=== PATIENT | male | born 1935 | race Caucasian/White ===

== ENCOUNTER 2021-10-13 14:32 | Outpatient (CLI) | payer MEDICARE, SELFPAY ==
[2021-10-13 14:59] LABS: Basophils # 0.1 10^3/uL (0.0-0.1); Basophils % 0.8 %; Eosinophils # 0.3 10^3/uL (0.0-0.8); Hematocrit 34.8 % (42.0-52.0); Hemoglobin 10.7 g/dL (11.7-16.6); Lymphocytes # 1.8 10^3/uL (0.8-4.8); Lymphocytes % 19.5 %; Mean Corpuscular HGB Conc 30.7 g/dL (30.0-36.0); Mean Corpuscular Hemoglobin 30.7 pg (28.0-34.0); Mean Platelet Volume 10.3 fL (7.4-10.4); Monocytes # 1.3 10^3/uL (0.2-0.9); Monocytes % 13.9 %; Neutrophils # 5.63 10^3/uL (1.8-7.7); Neutrophils % 61.5 %; Nucleated Red Blood Cells % 0 %; Platelet Count 315 10^3/cmm (130-400); Red Blood Count 3.48 10^6/uL (4.1-5.3); White Blood Count 9.1 10^3/uL (4.0-10.0)
[2021-10-13 15:16] LABS: Alanine Aminotransferase < 5 U/L (0-41); Albumin Level 3.7 g/dL (3.5-5.2); Alkaline Phosphatase 60 IU/L (40-130); Anion Gap 12.3 (5-19); Aspartate Amino Transferase 12 U/L (0-40); Blood Urea Nitrogen 20 mg/dL (8-23); C Reactive Protein 5.8 mg/L (0.0-4.9); Carbon Dioxide 29 mmol/L (22-29); Chloride 103 mmol/L (98-107); Globulin 2.3 g/dL (1.3-4.6); Glucose 69 mg/dL (65-115); Osmolality Calculated 291 mOsm/kg (285-295); Potassium 4.3 mmol/L (3.5-5.1); Sodium 140 mmol/L (136-145); Total Bilirubin 0.3 mg/dL (0.15-1.2)
== END 2021-10-13 14:33 | disposition home or self-care (01) ==
LOC: LAB 14:35
PROVIDERS: Family Provider Internal Medicine Cardiovascular Disease; Visit Provider Internal Medicine Infectious Disease
DX: T81.40XA Infection following a procedure, unspecified, initial encounter (principal)
CPT/HCPCS: 80053; 85025; 86140

== ENCOUNTER 2021-10-21 13:51 | Outpatient (CLI) | payer MEDICARE, OTHER, SELFPAY ==
[2021-10-21 14:27] LABS: Basophils % 0.6 %; Eosinophils # 0.2 10^3/uL (0.0-0.8); Eosinophils % 2.8 %; Hematocrit 36.2 % (42.0-52.0); Hemoglobin 11.4 g/dL (11.7-16.6); Lymphocytes # 1.6 10^3/uL (0.8-4.8); Lymphocytes % 21.9 %; Mean Corpuscular HGB Conc 31.5 g/dL (30.0-36.0); Mean Corpuscular Hemoglobin 30.8 pg (28.0-34.0); Mean Corpuscular Volume 97.8 fl (80-94); Mean Platelet Volume 10.4 fL (7.4-10.4); Monocytes # 0.8 10^3/uL (0.2-0.9); Monocytes % 11.3 %; Neutrophils # 4.56 10^3/uL (1.8-7.7); Nucleated Red Blood Cells % 0 %; Platelet Count 229 10^3/cmm (130-400); Red Cell Distribution Width 14.9 % (12.1-15.1); White Blood Count 7.2 10^3/uL (4.0-10.0)
[2021-10-21 15:10] LABS: Alanine Aminotransferase < 5 U/L (0-41); Albumin Level 3.7 g/dL (3.5-5.2); Alkaline Phosphatase 60 IU/L (40-130); Anion Gap 13.3 (5-19); Aspartate Amino Transferase 13 U/L (0-40); Blood Urea Nitrogen 20 mg/dL (8-23); C Reactive Protein 3.7 mg/L (0.0-4.9); Calcium 9.2 mg/dL (8.5-10.5); Carbon Dioxide 27 mmol/L (22-29); Chloride 101 mmol/L (98-107); Globulin 2.8 g/dL (1.3-4.6); Glucose 136 mg/dL (65-115); Osmolality Calculated 289 mOsm/kg (285-295); Potassium 4.3 mmol/L (3.5-5.1); Sodium 137 mmol/L (136-145); Total Bilirubin 0.2 mg/dL (0.15-1.2); Total Protein 6.5 g/dL (6.6-8.7)
== END 2021-10-21 13:52 | disposition home or self-care (01) ==
LOC: LAB 13:53
PROVIDERS: Visit Provider Internal Medicine Infectious Disease
DX: T81.40XA Infection following a procedure, unspecified, initial encounter (principal)
CPT/HCPCS: 80053; 85025; 86140

== ENCOUNTER 2021-10-27 14:40 | Outpatient (CLI) | payer MEDICARE, OTHER, SELFPAY ==
[2021-10-27 15:11] LABS: Basophils % 0.5 %; Eosinophils # 0.3 10^3/uL (0.0-0.8); Eosinophils % 3.8 %; Hematocrit 37.6 % (42.0-52.0); Hemoglobin 11.6 g/dL (11.7-16.6); Lymphocytes # 1.6 10^3/uL (0.8-4.8); Lymphocytes % 21.6 %; Mean Corpuscular HGB Conc 30.9 g/dL (30.0-36.0); Mean Corpuscular Volume 100.5 fl (80-94); Mean Platelet Volume 10.3 fL (7.4-10.4); Monocytes # 0.9 10^3/uL (0.2-0.9); Monocytes % 11.5 %; Neutrophils # 4.68 10^3/uL (1.8-7.7); Neutrophils % 61.8 %; Nucleated Red Blood Cells % 0 %; Platelet Count 202 10^3/cmm (130-400); Red Blood Count 3.74 10^6/uL (4.1-5.3); Red Cell Distribution Width 14.4 % (12.1-15.1); White Blood Count 7.6 10^3/uL (4.0-10.0)
[2021-10-27 16:04] LABS: Alanine Aminotransferase < 5 U/L (0-41); Albumin Level 3.9 g/dL (3.5-5.2); Alkaline Phosphatase 58 IU/L (40-130); Aspartate Amino Transferase 26 U/L (0-40); Blood Urea Nitrogen 21 mg/dL (8-23); Calcium 9.1 mg/dL (8.5-10.5); Carbon Dioxide 29 mmol/L (22-29); Chloride 101 mmol/L (98-107); Globulin 2.3 g/dL (1.3-4.6); Glucose 150 mg/dL (65-115); Osmolality Calculated 292 mOsm/kg (285-295); Sodium 138 mmol/L (136-145); Total Bilirubin 0.3 mg/dL (0.15-1.2); Total Protein 6.2 g/dL (6.6-8.7)
== END 2021-10-27 14:41 | disposition home or self-care (01) ==
LOC: LAB 14:43
PROVIDERS: Visit Provider Internal Medicine Infectious Disease
DX: T81.40XA Infection following a procedure, unspecified, initial encounter (principal)
CPT/HCPCS: 80053; 85025; 86140

== ENCOUNTER 2021-11-03 13:33 | Outpatient (CLI) | payer MEDICARE, OTHER, SELFPAY ==
[2021-11-03 13:48] LABS: Basophils # 0.1 10^3/uL (0.0-0.1); Basophils % 0.6 %; Eosinophils # 0.2 10^3/uL (0.0-0.8); Eosinophils % 3.1 %; Hematocrit 37.9 % (42.0-52.0); Hemoglobin 11.7 g/dL (11.7-16.6); Lymphocytes # 1.5 10^3/uL (0.8-4.8); Lymphocytes % 18.7 %; Mean Corpuscular HGB Conc 30.9 g/dL (30.0-36.0); Mean Corpuscular Hemoglobin 30.5 pg (28.0-34.0); Mean Platelet Volume 10.2 fL (7.4-10.4); Monocytes # 0.9 10^3/uL (0.2-0.9); Monocytes % 11.2 %; Neutrophils # 5.17 10^3/uL (1.8-7.7); Neutrophils % 65.8 %; Nucleated Red Blood Cells % 0 %; Platelet Count 222 10^3/cmm (130-400); Red Blood Count 3.83 10^6/uL (4.1-5.3); Red Cell Distribution Width 13.9 % (12.1-15.1); White Blood Count 7.9 10^3/uL (4.0-10.0)
[2021-11-03 14:13] LABS: Alanine Aminotransferase < 5 U/L (0-41); Albumin Level 3.9 g/dL (3.5-5.2); Alkaline Phosphatase 60 IU/L (40-130); Anion Gap 12.9 (5-19); Aspartate Amino Transferase 15 U/L (0-40); Blood Urea Nitrogen 23 mg/dL (8-23); C Reactive Protein 5.8 mg/L (0.0-4.9); Calcium 9.2 mg/dL (8.5-10.5); Carbon Dioxide 28 mmol/L (22-29); Chloride 100 mmol/L (98-107); Globulin 2.7 g/dL (1.3-4.6); Glucose 186 mg/dL (65-115); Osmolality Calculated 293 mOsm/kg (285-295); Potassium 3.9 mmol/L (3.5-5.1); Sodium 137 mmol/L (136-145); Total Bilirubin 0.2 mg/dL (0.15-1.2); Total Protein 6.6 g/dL (6.6-8.7)
== END 2021-11-03 13:34 | disposition home or self-care (01) ==
PROVIDERS: Family Provider Internal Medicine Cardiovascular Disease; Visit Provider Internal Medicine Infectious Disease
DX: T81.49XA Infection following a procedure, other surgical site, initial encounter (principal); X58.XXXA Exposure to other specified factors, initial encounter
CPT/HCPCS: 36415; 80053; 85025; 86140

== ENCOUNTER 2022-01-05 13:39 | Inpatient (IN) | payer MEDICARE, SELFPAY ==
[2022-01-05] VITALS (33 sets, daily range): BP systolic 78–156; BP diastolic 51–82; PULSE 92–134; RESP 16–26; TEMP 38.6; O2SAT 94–98; BMI 24.5
--- NOTE | 2022-01-05 13:48 | CT_ITS ---
WS: [id number] CT ABDOMEN PELVIS TECHNIQUE: Noncontrast CT of the abdomen and pelvis with coronal and sagittal reformatted images. CLINICAL INFORMATION: Abdominal pain COMPARISON: None. DLP: 3097.[address] scans at [facility] use at least one of these dose optimization techniques: automated e xposure control; mA and/or kV adjustment per patient size (includes targeted exams where dose is matc hed to clinical indication); or iterative reconstruction. FINDINGS: Some images degraded by motion artifact. Lung bases are well aerated. Noncontrast liver is normal. Normal noncontrast spleen. Air-fluid level within the stomach. Normal GE junction. Air distended distal stomach. Air-fluid levels in normal stacy shayla duodenum and proximal jejunum. No evidence of high-grade small or large bowel obstruction. Fatty atrophy of the pancreas. Adrenal glands are normal. No hydronephrosis in either kidney. Increased att enuation upper pole RIGHT renal lesion measuring 15 mm likely hemorrhagic or proteinaceous cyst. This can be followed up with ultrasound. Atrophic LEFT kidney. Evidence of prior aortic endograft with excluded aneurysm sac measuring 4.2 x 4.2 CM. This measures 7 .2 cm craniocaudal. Endograft extends into the LEFT common iliac. Surgical occlusion of the RIGHT com mon iliac. Partially evaluated femorofemoral bypass graft. Tiny fat-containing umbilical hernia. Diffuse thickening of the rectum and distal sigmoid with rectos igmoid constipation and distention. Thoracolumbar scoliosis convex RIGHT in the lumbar spine. Spondylitic changes disc space narrowing daria mbar spine. CT/CT abdomen pelvis wo con [id number] IMPRESSION: 1. Air-fluid level in the stomach with gaseous distention of the stomach. Air- fluid levels in normal caliber duodenum and proximal jejunum. 2. No evidence of high-grade small or large bowel obstruction. 3. No hydronephrosis in either kidney. 4. Periaortic endograft with LEFT iliac extension. Excluded aneurysm measures 4.2 x 4.2 x 7.2 cm 5. Evidence of partially evaluated femorofemoral bypass graft. 6. Rectosigmoid constipation with distention. Diffuse distal sigmoid and recta l wall thickening with mild surrounding induration likely infectious/inflammato ry or reactive. 7. Increased attenuation upper pole RIGHT renal lesion measuring 15 mm likely hemorrhagic or proteinaceous cyst. This can be followed up with ultrasound
--- NOTE | 2022-01-05 13:49 | ECG_ITS ---
[facility] Test Date: 2022-01-05 Pat Name: Chano Millan Department: Room: Gender: Male Physician Relations Representative: : 1935 Requested By: Garry Walls Order Number: [id number] Marisela MD: Jero Ferro M.D. Measurements Intervals [place] Rate: 102 P: 44 [place]: 189 QRS: 5 QRSD: 158 T: 171 QT: 370 QTc: 482 Interpretive Statements SINUS TACHYCARDIA LEFT BUNDLE BRANCH BLOCK [120+ ms QRS DURATION, 80+ ms Q/S IN V1/V2, 85+ ms R IN I/aVL/V5/V6] No previous ECG available for comparison Electronically Signed On 01-05-2022 17:51:00 CDT by Jero Ferro M.D. [id number]
--- NOTE | 2022-01-05 13:49 | XRR_ITS ---
PROCEDURE INFORMATION: Exam: XR Chest Exam date and time: 01/05/2022 2:01 PM Age: 86 years old Clinical indication: Other: Hypoxia TECHNIQUE: Imaging protocol: XR of the chest. Views: 1 view. COMPARISON: No relevant prior studies available. FINDINGS: Lungs: The lungs are of clear No consolidation. Prominent vascular densities are seen in the right hilum which may represent pulmonary artery. Pleural spaces: Elevated left hemidiaphragm. No pleural effusion. No pneumothorax. Heart/Mediastinum: Unremarkable. No cardiomegaly. Bones/joints: Unremarkable. Other findings: Comparison to prior examination is recommended XR/XR chest 1V portable [id number] IMPRESSION: 1. No acute findings. 2. Low lung volumes 3. Elevated left hemidiaphragm 4. Prominent vascular structure right hilum
--- NOTE | 2022-01-05 14:04 | ED_ITS ---
HPI - General Adult General: Chief complaint: Altered Mental Status Stated complaint: FALL, GROIN INCISION OPEN HX STENT, FEVER Time Seen by Provider: 01/05/22 13:42 Source: EMS Mode of arrival: EMS (Air-Evac) Limitations: altered mental status History of Present Illness: 86-year-old male presents to the emergency room via air VAC. He was picked up at home by [facility] ambulance service they contacted [facility] and he was transferred here for presumed sepsis. He had fallen at home. Evidently had some complication with what looks to be a femorofemoral bypass we do not have records of it at this point patient is confused and unable to give us any history. He has a dehisced wound in the right inguinal region he also has a left inguinal wound. Family reported EMS there is a complication with a stent. There was some drainage from the wound human-ifas a large bulky bandage over looks serosanguineous. No active purulent drainage and I cannot express anything wound was not probed. Patient is febrile. He is unable to give any history at all he is confused and disoriented he is also mildly hypoxic requiring 5 L and only satting in the upper 80s he was switched to a mask shortly after arrival. Onset (ago): unknown Relieving factors: none Exacerbating factors: none Associated symptoms: Reports confusion, headache(s) and malaise; Deny chest pain, cough, fevers/chills or nausea Review of Systems General: Reports: ROS unobtainable due to mental status (Limited review of systems) Const: Reports: malaise Card: Denies: chest pain GI: Denies: nausea Neuro: Reports: headache(s) and confusion [facility] ED PFSH: Medical History (Updated 01/05/22 @ 17:34 by Garry John DO) CAD (coronary artery disease) Chronic back pain Dyslipidemia Elevated lactic acid level Elevated troponin Femoral-popliteal bypass graft occlusion GERD (gastroesophageal reflux disease) Glucose intolerance Hypertension New onset left bundle branch block (LBBB) Peripheral arterial disease with history of revascularization Respiratory failure Surgical site infection Surgical History History of abdominal aortic aneurysm (AAA) repair History of ankle surgery History of endovascular stent graft for abdominal aortic aneurysm (AAA) Stented coronary artery Family History Father CAD (coronary artery disease) [facility] at 65 Sister Cancer Social History Smoking and tobacco status: former smoker Alcohol intake: never Lives independently: Yes Household members: spouse Marital status: Physical Exam Const: EXAM LIMITATIONS: altered mental status GENERAL APPEARANCE: frail appearing ORIENTATION/CONSCIOUSNESS: Yes awake HENMT: COMMON NORMALS: normocephalic and atraumatic HEAD & SCALP: normocephalic and atraumatic FACE & SINUS: facial exam not normal Lymph: LYMPHATIC: no lymphadenopathy noted and no lymphedema noted Chest: OTHER: Bruising on the left anterior chest wall Resp: AUSCULTATION: rhonchi and wheezes Cardio: COMMON NORMALS: regular rhythm and No murmurs present (Cardio) RATE: tachycardic RHYTHM: regular rhythm GI: AUSCULTATION: Yes Hypoactive bowel sounds present PALPATION: Yes Tenderness to palpation present (GI) Details: LUQ and No Guarding due to palpation present (GI) Extremity: COMMON NORMALS: normal to inspection, capillary refill normal, no clubbing, cyanosis or edema, no calf tenderness and no pedal edema Skin: COMMON NORMALS: no rashes or lesions noted GENERAL SKIN EXAM: no rashes or lesions noted Procedures Intubation sedative: Etomidate paralytic: Succinylcholine Laryngoscope: Eden ET Tube Size: 8 ET Tube Uncuffed: No Tube Secured Depth (cm): 22 Tube Secured Location: teeth Tube Placement Confirmation: visualized tube passing through cords, equal breath sounds bilaterally, no breath sounds over epigastrium and confirmation by capnometry Patient Tolerated Procedure: well Intubation Complications: none Course Vital Signs: Vital signs: Vital Signs Temperature 101.4 F H 01/05/22 13:45 Pulse Rate 120 H 01/05/22 16:20 Respiratory Rate 16 01/05/22 16:20 Blood Pressure 146/80 01/05/22 16:20 Pulse Oximetry 96 01/05/22 16:20 MDM - General Adult Medical Decision Making Patient has increasing respiratory distress and work of breathing was decided to intubate the patient family gave permission to place patient on the ventilator. See procedure note. Oxygenation improved after being placed on the ventilator. Records received from [facility]. Patient had a endograft done via bilateral femoral artery cutdown in early September. We received a new EKG which had been done in early September which showed a normal sinus rhythm as opposed to the EKG don e here showing a left bundle branch block. Given this is a new bundle branch block it was decided to call a STEMI alert. Patient's initial troponin is 137 and CPK is 2789. Cardiology consult is necrosing the patient we did get some old records from [facility]. The bundle branch block is new [facility] decided to take patient to the [facility] given the elevated troponin bundle branch block and his presentation. Discussed with Dr. Crenshaw he will admit for sepsis to the ICU he has been empirically given Vanco Zosyn and Levaquin. Cultures done. Also discussed with the family. Medical Records I reviewed the patient's medical records. Lab Data I reviewed the patient's lab results. : 01/05/22 13:55 01/05/22 13:55 Radiology Impressions Abdomen/Pelvis CT 01/05/22 13:48 IMPRESSION: 1. Air-fluid level in the stomach with gaseous distention of the stomach. Air- fluid levels in normal caliber duodenum and proximal jejunum. 2. No evidence of high-grade small or large bowel obstruction. 3. No hydronephrosis in either kidney. 4. Periaortic endograft with LEFT iliac extension. Excluded aneurysm measures 4.2 x 4.2 x 7.2 cm 5. Evidence of partially evaluated femorofemoral bypass graft. 6. Rectosigmoid constipation with distention. Diffuse distal sigmoid and rectal wall thickening with mild surrounding induration likely infectious/inflammatory or reactive. 7. Increased attenuation upper pole RIGHT renal lesion measuring 15 mm likely hemorrhagic or proteinaceous cyst. This can be followed up with ultrasound Chest X-Ray 01/05/22 13:49 IMPRESSION: 1. No acute findings. 2. Low lung volumes 3. Elevated left hemidiaphragm 4. Prominent vascular structure right hilum Laboratory Results WBC 15.7 10^3/uL (4.0-10.0) H 01/05/22 13:55 RBC 4.28 10^6/uL (4.1-5.3) 01/05/22 13:55 Hgb 12.6 g/dL (11.7-16.6) 01/05/22 13:55 Hct 39.1 % (42.0-52.0) L 01/05/22 13:55 MCV 91.4 fl (80-94) 01/05/22 13:55 MCH 29.4 pg (28.0-34.0) 01/05/22 13:55 MCHC 32.2 g/dL (30.0-36.0) 01/05/22 13:55 RDW 13.2 % (12.1-15.1) 01/05/22 13:55 Plt Count 205 10^3/cmm (130-400) 01/05/22 13:55 MPV 10.5 fL (7.4-10.4) H 01/05/22 13:55 Neut % (Auto) 89.9 % 01/05/22 13:55 Lymph % (Auto) 2.0 % 01/05/22 13:55 Pender % (Auto) 6.9 % 01/05/22 13:55 Eos % (Auto) 0.0 % 01/05/22 13:55 Baso % (Auto) 0.2 % 01/05/22 13:55 Neut # (Auto) 14.12 10^3/uL (1.8-7.7) H 01/05/22 13:55 Lymph # (Auto) 0.3 10^3/uL (0.8-4.8) L 01/05/22 13:55 Pender # (Auto) 1.1 10^3/uL (0.2-0.9) H 01/05/22 13:55 Eos # (Auto) 0.0 10^3/uL (0.0-0.8) 01/05/22 13:55 Baso # (Auto) 0.0 10^3/uL (0.0-0.1) 01/05/22 13:55 Nucleated RBC % (auto) 0 % 01/05/22 13:55 Nucleated RBCs # 0.0 /100WBC 01/05/22 13:55 PT 16.20 SECONDS (12.1-14.9) H 01/05/22 13:55 INR 1.27 (0.8-1.2) H 01/05/22 13:55 APTT 35.0 SECONDS (23.9-36.7) 01/05/22 13:55 Specimen Type Arterial 01/05/22 14:25 Sample Site Brachial, left 01/05/22 14:25 ABG pH 7.51 (7.35-7.45) H 01/05/22 14:25 ABG pCO2 28.7 mmHg (35-45) L 01/05/22 14:25 ABG pO2 68.5 mmHg (80.0-100.0) L 01/05/22 14:25 ABG HCO3 23.0 mmol/L (22-26) 01/05/22 14:25 ABG O2 Saturation 97.5 01/05/22 14:25 ABG Base Excess 0.8 mmol/L (-2.0-2.0) 01/05/22 14:25 Maik Test Pos 01/05/22 14:25 A-a O2 Gradient 23.1 mmHg (5-10) H 01/05/22 14:25 Hematocrit 38.1 % (42-52) L 01/05/22 14:25 Hgb O2 Saturation 95.9 % (95-100) 01/05/22 14:25 Carboxyhemoglobin 0.9 %THgb (0.4-20.1) 01/05/22 14:25 Methemoglobin 0.7 % (0.4-1.5) 01/05/22 14:25 Total Hemoglobin 12.4 g/dL (14-18) L 01/05/22 14:25 Sodium 141.0 mmol/L (131-143) 01/05/22 14:25 Potassium 3.1 mmol/L (3.5-5.0) L 01/05/22 14:25 Glucose 239.0 mg/dL (70-115) H 01/05/22 14:25 Ionized Calcium 1.1 mmol/L (1.1-1.4) 01/05/22 14:25 O2 Delivery Device Nc 01/05/22 14:25 O2 Liters/Min 5.0 % 01/05/22 14:25 FiO2 40.0 % 01/05/22 14:25 Provider Education Specialist ID Bd 01/05/22 14:25 Sodium 140 mmol/L (136-145) 01/05/22 13:55 Potassium 3.4 mmol/L (3.5-5.1) L 01/05/22 13:55 Chloride 103 mmol/L (98-107) 01/05/22 13:55 Carbon Dioxide 24 mmol/L (22-29) 01/05/22 13:55 Anion Gap 16.4 (5-19) 01/05/22 13:55 BUN 34 mg/dL (8-23) H 01/05/22 13:55 Creatinine 1.4 mg/dL (0.7-1.2) H 01/05/22 13:55 GFR Calculation Not Reportable 01/05/22 13:55 Glucose 246 mg/dL (65-115) H 01/05/22 13:55 Calculated Osmolality 306 mOsm/kg (285-295) H 01/05/22 13:55 Lactic Acid 4.1 mmol/L (0.5-2.2) H* 01/05/22 13:55 Lactic Acid (Sepsis) 2.9 mmol/L (0.5-2.2) H 01/05/22 16:05 Calcium 8.9 mg/dL (8.5-10.5) 01/05/22 13:55 Magnesium 2.2 mg/dL (1.7-2.3) 01/05/22 13:55 Total Bilirubin 1.1 mg/dL (0.15-1.2) 01/05/22 13:55 AST 56 U/L (0-40) H 01/05/22 13:55 ALT 26 U/L (0-41) 01/05/22 13:55 Alkaline Phosphatase 62 IU/L (40-130) 01/05/22 13:55 Creatine Kinase 2789 U/L (39-308) H* 01/05/22 13:55 CK-MB (CK-2) 5.5 ng/mL (0-10.4) 01/05/22 13:55 CK-MB (CK-2) Rel Index % (0.0-5.3) 01/05/22 13:55 Troponin T Baseline 137 ng/L (0-15) H* 01/05/22 13:55 Troponin T 120 Minute 186.6 ng/L (0-15) H 01/05/22 16:05 Delta Troponin T 49.6 ABS# (0-10) H* 01/05/22 16:05 Total Protein 6.6 g/dL (6.6-8.7) 01/05/22 13:55 Albumin 3.4 g/dL (3.5-5.2) L 01/05/22 13:55 Globulin 3.2 g/dL (1.3-4.6) 01/05/22 13:55 Lipase 7 U/L (13-60) L 01/05/22 13:55 Urine Color Yellow (Yellow) 01/05/22 16:05 Urine Appearance Clear (CLEAR) 01/05/22 16:05 Urine pH 5 (5-7) 01/05/22 16:05 Ur Specific Portal 1.010 (1.005-1.030) 01/05/22 16:05 Urine Protein Trace (Negative) 01/05/22 16:05 Urine Glucose (UA) Norm (Normal) 01/05/22 16:05 Urine Ketones Negative (Negative) 01/05/22 16:05 Urine Blood 3+ (Negative) H 01/05/22 16:05 Urine Nitrate Negative (Negative) 01/05/22 16:05 Urine Bilirubin Neg (Negative) 01/05/22 16:05 Urine Urobilinogen Norm mg/dL (Negative) 01/05/22 16:05 Ur Leukocyte Esterase Negative (Negative) 01/05/22 16:05 Urine RBC 0-4 /hpf (0-2) H 01/05/22 16:05 Urine WBC 0-4 /hpf (0-5) H 01/05/22 16:05 Ur Squamous Epith Cells 0-4 /hpf (0-5) H 01/05/22 16:05 Amorphous Sediment 2+ /hpf 01/05/22 16:05 Urine Bacteria Trace /hpf (NONE) 01/05/22 16:05 Serum Ketones Negative (Negative) 01/05/22 13:55 Critical Care Time Critical Care Time: Critical Care Time: Yes Total Critical Care Time: 120 Attestation: The high probability of a clinically significant, sudden or life threatening deterioration of the patient's cardiovascular/respiratory system(s) required my full and direct attention, intervention and personal management. The critical care time is as shown. This time is in addition to time spent performing any rep orted procedures but includes the following: [x] Data and vital sign review and interpretation [x] Patient assessment, examination and intervention [x] Documentation [x] Medication orders and management Discharge Plan Discharge Patient Disposition: Admitted As Inpatient Admit Provider: Waldo Strong Clinical Impression: New onset left bundle branch block (LBBB), Elevated lactic acid level, Elevated troponin, NICOLETTE (acute kidney injury), Acute encephalopathy, Septic shock Condition: Stable Coding Level of Care Code ED [employer] for Chg Fwd Exam Comprehensive
[2022-01-05 14:23] LABS: Basophils % 0.2 %; Hematocrit 39.1 % (42.0-52.0); Hemoglobin 12.6 g/dL (11.7-16.6); Lymphocytes # 0.3 10^3/uL (0.8-4.8); Mean Corpuscular HGB Conc 32.2 g/dL (30.0-36.0); Mean Corpuscular Hemoglobin 29.4 pg (28.0-34.0); Mean Corpuscular Volume 91.4 fl (80-94); Mean Platelet Volume 10.5 fL (7.4-10.4); Monocytes # 1.1 10^3/uL (0.2-0.9); Monocytes % 6.9 %; Neutrophils # 14.12 10^3/uL (1.8-7.7); Neutrophils % 89.9 %; Nucleated Red Blood Cells % 0 %; Platelet Count 205 10^3/cmm (130-400); Red Blood Count 4.28 10^6/uL (4.1-5.3); Red Cell Distribution Width 13.2 % (12.1-15.1); White Blood Count 15.7 10^3/uL (4.0-10.0)
[2022-01-05] MEDS: sodium chloride 0.9% 1,000 ML 999 ML IV (14:32)
[2022-01-05] MEDS: piperacillin-tazobactam 3.375 GM in sodium chloride 0.9% (plus) 50 ML IV ×2 (14:32→21:59)
[2022-01-05] MEDS: ondansetron 2 mg/ML SDV 2 mL 4 MG IVP (14:33)
[2022-01-05 14:36] LABS: ABG PCO2 28.7 mmHg (35-45); ABG PH Result 7.51 (7.35-7.45); Alveolar-Arterial Oxygen Gradi 23.1 mmHg (5-10); Arterial Blood Gas Hematocrit 38.1 % (42-52); Base Excess ABG 0.8 mmol/L (-2.0-2.0); Blood Gas Allen Test Pos; Blood Gas Operator Identificat BD; Blood Gas Sample Site Brachial, left; Blood Gas Sample Type Arterial; Carboxyhemoglobin 0.9 %THgb (0.4-20.1); HGB O2 Sat 95.9 % (95-100); Ionized Calcium Level - ABG 1.1 mmol/L (1.1-1.4); Methemoglobin 0.7 % (0.4-1.5); Oxygen Device NC; Oxygen Saturation ABG 97.5; PO2 ABG 68.5 mmHg (80.0-100.0); Potassium Level - ABG 3.1 mmol/L (3.5-5.0); Total Hemoglobin 12.4 g/dL (14-18)
[2022-01-05] MEDS: LORazepam 2 mg/mL INJ 1 mL IVP (14:47)
[2022-01-05 14:52] LABS: Alanine Aminotransferase 26 U/L (0-41); Albumin Level 3.4 g/dL (3.5-5.2); Alkaline Phosphatase 62 IU/L (40-130); Anion Gap 16.4 (5-19); Aspartate Amino Transferase 56 U/L (0-40); Blood Urea Nitrogen 34 mg/dL (8-23); Calcium 8.9 mg/dL (8.5-10.5); Carbon Dioxide 24 mmol/L (22-29); Chloride 103 mmol/L (98-107); Globulin 3.2 g/dL (1.3-4.6); Glucose 246 mg/dL (65-115); Lipase 7 U/L (13-60); Magnesium 2.2 mg/dL (1.7-2.3); Osmolality Calculated 306 mOsm/kg (285-295); Potassium 3.4 mmol/L (3.5-5.1); Sodium 140 mmol/L (136-145); Total Bilirubin 1.1 mg/dL (0.15-1.2); Total Protein 6.6 g/dL (6.6-8.7)
[2022-01-05 14:54] LABS: Lactic Sepsis W/Reflex 4.1 mmol/L (0.5-2.2)
[2022-01-05 14:55] LABS: Ketone (Acetest) Serum Negative (Negative)
--- NOTE | 2022-01-05 15:00 | PC.PHAR ---
pt and pts states the pt takes care of his own medications-medications entered are meds that show on ext med history and what the pt states he takes-pt states he is still taking prozac 60mg qam last filled 10/28/21 30d/s-pt states still taking nitro-time er 2.5mg two tabs bid-[facility] pharmacy states filled 07/28/2021 30d/s and 11/25/21 30d/s states rx has refills- office [place] home ar states the pt hasnt been seen in the office since may 2021 -notes are made in the pharmacy comments
[2022-01-05 15:09] LABS: Creatine Phosphokinase 2789 U/L (39-308)
[2022-01-05] MEDS: succinylcholine 20 mg/mL SDV 10mL 90 MG IVP (15:11)
[2022-01-05 15:14] LABS: Troponin(5th) Baseline 137 ng/L (0-15)
[2022-01-05 15:28] LABS: INR 1.27 (0.8-1.2)
[2022-01-05] MEDS: vecuronium 10 mg SDV IVP (15:40)
--- NOTE | 2022-01-05 15:49 | ECG_ITS ---
[facility] Test Date: 2022-01-05 Pat Name: Chano Cuenca Department: Room: Gender: Male Utility Sales Representative: : 1935 Requested By: Garry Walls Order Number: [id number] Marisela MD: Jero Ferro M.D. Measurements Intervals [place] Rate: 135 P: -46 MO: 138 QRS: 11 QRSD: 155 T: 132 QT: 305 QTc: 457 Interpretive Statements SINUS TACHYCARDIA LEFT BUNDLE BRANCH BLOCK [120+ ms QRS DURATION, 80+ ms Q/S IN V1/V2, 85+ ms R IN I/aVL/V5/V6] Compared to ECG 01/05/2022 14:39:18 No significant changes Electronically Signed On 01-05-2022 17:57:29 CDT by Jero Ferro M.D. [id number]
[2022-01-05 16:01] LABS: CKMB 5.5 ng/mL (0-10.4)
[2022-01-05 16:03] LABS: Reflex Lactate Order REFLEX LACTIC ORDERD
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
[2022-01-05] MEDS: vancomycin 1,000 MG in sodium chloride 0.9% 250 ML 250 MG IV (16:17)
--- NOTE | 2022-01-05 16:20 | XACV_ITS ---
Exam Room: ICU10 Ht: 173 cm Wt: 71 kg BSA: 1.85 m2 Gender: Male : 1935 Exam Priority: Routine Procedure(s): Procedure Description: Diagnostic procedure Procedure Description: Coronary Angiography Diagnostic Cath Status: Emergency Diagnostic Findings * Patient was brought in with a new bundle branch block and a STEMI was called. Patient has coronary disease and is probably septic. Angiography was indicated because his troponin was 147 and he has a new left bundle branch block. Procedure was done from the right radial artery. The left main, circumflex and LAD are basically normal. There are several stents in the proximal and mid right coronary artery. There is some minor in-stent restenosis but no significant lesions. There is a 30 to 40% lesion in the distal right coronary artery. There is good flow in all 3 coronary vessels. No left ventriculogram was done due to acute renal insufficiency and sepsis. * The details of the procedure were provided to the patient's and son. All of their questions were answered. Conclusions 1. No coronary obstruction. Minor in-stent restenosis of the right coronary artery. Recommendations * Treat sepsis and other illness. Diagnostic RX Recommendation: none Anticoagulation: Heparin Pressures Phase:Rest AO : 137 / 113 ( 119 ) @ 5:56:00 PM Clinical Evaluation EBL: 5mL-10mL Procedural Details Admit Source: Emergency department. Pre-Procedure Time Out. Identified patient by full name and date of as verbalized by the patient/guarantor. Does the consent match the physician's order: N/A Emergent; Informed Consent not obtained due to time critical life threat. Accurate & Complete Informed Consent: N/A Emergent; Informed Consent not obtained due to time critical life threat. Inpatient/Outpatient History & Physical on Chart: Yes. If H&P is completed, is and addenduem needed: N/A; If yes, is the addendum complete: N/A. Visualize and Verify Site with Patient/Guarantor: N/A. Relevant Radiology Images available: N/A. Pre-op teaching completed and patient family verbalized understanding. The risks, benefits, and alternatives of sedation and/or procedure were discussed by physician. The patient family agrees to continue. Procedure started. [place] Clinical Fraility Score: 6: Moderately Frail. Vamp Presser Indications: Suspected CAD. Chest Pain Symptom Assessment: Asymptomatic. Cardiovascular Instability: Yes, if yes, Hemodynamic Instability. Correct patient, site and procedure confirmed by cath team. Current diagnosis: New LBBB. PERRLA. Strong, equal hand merchandising lead bilaterally. Lungs clear x 5 lobes. IV Site on Arrival: 18 gauge in the left wrist. IV Site on Arrival: 18 gauge in the right anticubital. Fentanyl gtt infusing at 50mcg/hr. Versed gtt infusing at 3mg/hr. Vancomycin IVPB at 250ml/hr. Pre Procedural Pulses: right radial was 3+. right groin was prepped with chloroprep then draped in the usual sterile fashion. right radial was prepped with chloroprep then draped in the usual sterile fashion. Patient arrived to crime lab technician on a ventilator and will be managed by respiratiory. Baseline sample Acquired. HR: 117 BPM. Physician notified. Physician arrived. Physician scrubbed in. Correct Patient: Yes; Correct Procedure: Yes; Correct Site: N/A Emergent; Informed Consent not obtained due to time critical life threat; Correct Patient Position: N/A Emergent; Informed Consent not obtained due to time critical life threat; Correct Supplies: N/A Emergent; Informed Consent not obtained due to time critical life threat; Dried Flammable Prep: N/A Emergent; Informed Consent not obtained due to time critical life threat; Blood Products Available: N/A Emergent; Informed Consent not obtained due to time critical life threat;. Lidocaine 1% infiltrated to the right radial. Arterial access obtained. A 5 japanese TIG catheter in over wire. Multiple views taken of left coronary artery. Nj catheter in placed from ED. Catheter redirected to the RCA. Multiple views taken of right coronary artery. Catheter out. Physician scrubbed out. Patient's family updated. A TR Band was successful obtaining hemostatsis at the Right Radial artery insertion site. Post Procedure: Pulses reassessed and unchanged. No VTE prophylaxis required. Medication's Wasted: Lidocaine 1% = 3 mL. Medication's Wasted: Heparin = 1000 u. Medication's Wasted: Nitro = 49.8 mg. Complications: none. Estimated blood loss: 5mL-10mL. Airway -continues to be maintained by ventilator support. Circulation: W/N/L, pulses unchanged. Nausea/Vomiting: No. Responsiveness - Responds to painful stimuli. Procedure completed. Patient transferred by bed to ICU. Vital chart was stopped. Access Site Site: Right Radial artery Sheath Size: 6 Fr Hemostasis Method: TR Band Hemostasis Success: Successful Procedure Medications Start: 4:53 PM Stop: 4:53 PM Medication: Nitrogylcerin Amount: 200 mcg Route: I.A. Start: 4:54 PM Stop: 4:54 PM Medication: Heparin Amount: 5000 units Route: I.V. I, the attending physician, have reviewed and verified all procedure medications. Yes, all medications given per verbal order Report Signatures Finalized by Dr. Waldo Strong MD on 01/05/2022 05:27 PM
[2022-01-05 16:26] LABS: Add Urine Culture? No; Add Urine Microscopic? YES; Amorphous Sediment Urine 2+ /hpf; Bacteria Urine TRACE /hpf; Bilirubin Urine Neg (Negative); Blood Urine 3+ (Negative); Glucose Urine UA Norm (Normal); Ketones Urine Negative (Negative); Leukocyte Esterase Urine Negative (Negative); Nitrate Urine Negative (Negative); Protein Urine Trace (Negative); RBC Urine 0-4 /hpf (0-2); Squamous Epithelial Cell Urine 0-4 /hpf (0-5); Urine Appearance Clear (CLEAR); Urine Color Yellow (Yellow); Urobilinogen Urine Norm (Negative); WBC Urine 0-4 /hpf (0-5); pH Urine 5 (5-7)
--- NOTE | 2022-01-05 16:35 | PC.NURSE ---
At 1511 pt was intubated with 8.[address] John. Pt was given 30 mg Etomidate IV and 90 mg Succinylcholine IV prior to intubation for sedation/paralysis. Pt became increasingly agitated and fidgety during course of stay in ER, trying to get out of bed, not answering questions appropriately. It was felt he was becoming more hypoxic and the decision was made to intubate by Dr. John. After intubation pt's Troponin resulted (critical) and the mine laborer was activated. Pt was taken to mine laborer at 1632
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
[2022-01-05 16:58] LABS: Lactic Acid level (Lactate) 2.9 mmol/L (0.5-2.2)
[2022-01-05 17:04] LABS: Troponin 5 2HR 186.6 ng/L (0-15); Troponin 5 2HR Delta 49.6 ABS# (0-10)
--- NOTE | 2022-01-05 17:47 | US_ITS ---
WS: [id number] Exam: US soft tissue/extremity [id number] Date/Time of Exam: 01/05/2022 6:36 PM Reason For Exam: R groin wound, assess for fluid collection The right inguinal region is targeted for ultrasound evaluation. A draining sinus extends to the skin surface within the right inguinal region.. A complex hypoechoic solid irregular lesion is noted just deep to the draining sinus and may represent a complex abscess o r phlegmon. This lesion appears to encase a prominent vessel in this region which may represent the c ommon femoral artery. No obvious drainable subcutaneous fluid collection is seen. US/US soft tissue/extremity [id number] IMPRESSION: 1. Approximate 3 x 2 cm subcutaneous hypoechoic irregular solid soft tissue mas s in the right groin region with well-defined draining sinus extending to the s kin surface. The mass partially encases a major vessel in this region probably the common femoral artery. Most likely diagnosis is complex abscess or phlegmon . Other possibilities would include hematoma or less likely soft tissue neoplas m. Atypical pseudoaneurysm might also be a consideration. 2. No subcutaneous drainable fluid collection was demonstrated.
[2022-01-05] MEDS: levofloxacin-dextrose 5 % 750 MG/150 ML PREMIX 100 MG IV (17:57)
[2022-01-05] MEDS: enoxaparin 40 mg/0.4 mL Syringe SUBCUT (17:57)
[2022-01-05] MEDS: pantoprazole DR 40 mg Tablet PO (17:57)
--- NOTE | 2022-01-05 18:07 | PC.NURSE ---
Arrived from cath lab radiological technologist, small amount of blood present to R wrist TR band site, intubated and sedated at this time
--- NOTE | 2022-01-05 18:19 | USCV_ITS ---
Chano Cuenca Age: 86 Gender: M : 1935 Exam Date: 01/05/2022 20:56 Ordering Phys: Ar Crenshaw MD Technologist: NIDHI [place] [facility] [place]: Possible CVA Risk Factors: Unknown Previous Vascular Surgery: Unknown Right Brachial BP: / Left Brachial BP: / Right Left Velocity (cm/s) Spectral Plaque Velocity (cm/s) Spectral Plaque Syst/Diast Broadening Syst/Diast Broadening 27.20/ 4.70 Prox CCA 36.50 / 7.80 35.70/ 6.20 Mid CCA 41.20 / 8.50 35.00/ 8.20 Distal CCA 39.60 / 10.10 47.10/ 10.70 Prox ICA 45.80 / 13.20 46.30/ 9.10 Mid ICA 97.10 / 25.60 72.20/ 12.40 Distal ICA 68.40 / 17.90 57.70 ECA 50.50 2.02 ICA/CCA 2.36 Antegrade Vertebral Antegrade 31.80/ 7.00 cm/s 72.20/ 19.40 cm/s Tri Subclavian Tri 43.50 93.70 FINDINGS Moderate heterogeneous plaques of the left bifurcation and proximal internal carotid artery Minimal plaques of the right bifurcation and internal carotid artery Antegrade flow in the vertebral arteries bilaterally. Normal Doppler velocities in the external carotid, vertebral and subclavian arteries bilaterally CONCLUSIONS Moderate heterogeneous plaques at the left bifurcation and proximal internal carotid artery, with Doppler features, suggesting less than 50% stenosis. Minimal plaques at the right bifurcation and internal carotid artery No significant stenosis in the vertebral, subclavian and internal carotid arteries bilaterally, based on the above findings No similar previous studies are available for comparison Dr Tori Franz MD [facility] (Electronically Signed) Final Date: 06 January 2022 09:23 S
[2022-01-05 18:52] LABS: D Dimer 5.23 ug/mIFEU (0-0.59)
[2022-01-05] MEDS: methylnaltrexone 12 /0.6 mL INJ 12 MG SUBCUT (18:52)
[2022-01-05 21:14] LABS: Adenovirus Not Detected (NOT DETECT); Chlamydia Pneumoniae Not Detected (NOT DETECT); Coronavirus 229E,HKU1,NL63,OC4 Not Detected (NOT DETECT); Human Metapneumovirus Not Detected (NOT DETECT); Human Rhinovirus/Enterovirus Not Detected (NOT DETECT); Influenza A Not Detected (NOT DETECT); Influenza A H1 Not Detected (NOT DETECT); Influenza A H1-2009 Not Detected (NOT DETECT); Influenza A H3 Not Detected (NOT DETECT); Influenza B Not Detected (NOT DETECT); Mycoplasma Pneumoniae Not Detected (NOT DETECT); Parainfluenza Virus Type 1 Not Detected (NOT DETECT); Parainfluenza Virus Type 2 Not Detected (NOT DETECT); Parainfluenza Virus Type 3 Not Detected (NOT DETECT); Parainfluenza Virus Type 4 Not Detected (NOT DETECT); Respiratory Syncytial Virus A Not Detected (NOT DETECT); Respiratory Syncytial Virus B Not Detected (NOT DETECT); SARS-COV-2 Not Detected (NOT DETECT)
[2022-01-05 22:02] LABS: Troponin 5 6HR 272.4 ng/L (0-15); Troponin 5 6HR Delta 135.4 ng/L (0-12)
[2022-01-05] MEDS: acetaminophen 325 mg Tablet 650 MG PO (22:28)
[2022-01-05] MEDS: sodium chloride 0.9% 1,000 ML 100 ML IV (22:34)
[2022-01-05] MEDS: sodium chloride 0.9% 500 ML 999 ML IV (22:34)
[2022-01-06] VITALS (58 sets, daily range): BP systolic 75–160; BP diastolic 43–136; PULSE 86–118; RESP 16–18; TEMP 36.6; O2SAT 80–100; BMI 24.5
[2022-01-06 03:52] LABS: Basophils # 0.1 10^3/uL (0.0-0.1); Basophils % 0.3 %; Eosinophils % 0.1 %; Hematocrit 43.7 % (42.0-52.0); Hemoglobin 13.8 g/dL (11.7-16.6); Lymphocytes % 5.7 %; Mean Corpuscular HGB Conc 31.6 g/dL (30.0-36.0); Mean Corpuscular Hemoglobin 28.9 pg (28.0-34.0); Mean Corpuscular Volume 91.4 fl (80-94); Mean Platelet Volume 10.8 fL (7.4-10.4); Monocytes # 3.4 10^3/uL (0.2-0.9); Monocytes % 18.5 %; Neutrophils # 13.66 10^3/uL (1.8-7.7); Neutrophils % 74.5 %; Nucleated Red Blood Cells % 0 %; Platelet Count 180 10^3/cmm (130-400); Red Blood Count 4.78 10^6/uL (4.1-5.3); Red Cell Distribution Width 13.7 % (12.1-15.1); White Blood Count 18.3 10^3/uL (4.0-10.0)
[2022-01-06 04:19] LABS: Alanine Aminotransferase 25 U/L (0-41); Albumin Level 2.3 g/dL (3.5-5.2); Alkaline Phosphatase 58 IU/L (40-130); Aspartate Amino Transferase 40 U/L (0-40); Blood Urea Nitrogen 33 mg/dL (8-23); Calcium 7.5 mg/dL (8.5-10.5); Carbon Dioxide 19 mmol/L (22-29); Chloride 108 mmol/L (98-107); Globulin 3.4 g/dL (1.3-4.6); Glucose 133 mg/dL (65-115); Magnesium 2.1 mg/dL (1.7-2.3); Osmolality Calculated 301 mOsm/kg (285-295); Sodium 141 mmol/L (136-145); Total Protein 5.7 g/dL (6.6-8.7)
[2022-01-06 04:21] LABS: Lactate (Lactic Acid level) 2.3 mmol/L (0.5-2.2)
[2022-01-06 04:26] LABS: Anion Gap 17.2 (5-19); Potassium 3.2 mmol/L (3.5-5.1)
[2022-01-06 04:28] LABS: Creatine Phosphokinase 1127 U/L (39-308)
--- NOTE | 2022-01-06 04:57 | XRR_ITS ---
PROCEDURE INFORMATION: Exam: XR Chest Exam date and time: 01/06/2022 5:07 AM Age: 86 years old Clinical indication: Cough and dyspnea; Additional info: Dyspnea/cough TECHNIQUE: Imaging protocol: XR of the chest. Views: 1 view. COMPARISON: CR XR chest 1V portable [id number] 01/05/2022 2:01 PM FINDINGS: Tubes, catheters and devices: The endotracheal tube is above the level of the elan. Central venous catheter via the right jugular approach with the tip projecting over the atrium. nasogastric tube extends below the diaphragm with the tip in the region of the fundus Lungs: Perihilar alveolar airspace consolidation as well as consolidation within both lung bases. Pleural spaces: Bilateral pleural effusions: Heart/Mediastinum: Cardiomegaly with prominent and indistinct central vasculature. Bones/joints: Unremarkable. XR/XR chest 1V portable [id number] IMPRESSION: Severe pulmonary edema.
[2022-01-06 05:29] LABS: Partial Thromboplastin Time 45.2 SECONDS (23.9-36.7)
[2022-01-06] MEDS: fluoxetine 20 mg Capsule 60 MG PO (05:32)
[2022-01-06] MEDS: piperacillin-tazobactam 3.375 GM in sodium chloride 0.9% (plus) 50 ML IV ×3 (05:32→22:05)
[2022-01-06] MEDS: lidocaine 1% 5 ML in potassium chloride premix 100 ML 50 ML IV (05:32)
--- NOTE | 2022-01-06 06:19 | USCV_ITS ---
Chano Cuenca Age: 86 Gender: M : 1935 Exam Date: 01/06/2022 13:01 Ordering Phys: Marlo Agosto MD Technologist: MANAV [place]am [place] [facility] [place]ication: NSTEMI. Patient is on ventilator in ICU-10. BP: 100 / 53 HR: 92 Rhythm: Sinus Technical Quality: Adequate MEASUREMENTS (Male / Female) Normal Values 2D ECHO LV Diastolic Diameter PLAX 3.1 cm 4.2 - 5.9 / 3.9 - 5.3 cm LV Systolic Diameter PLAX 2.2 cm IVS Diastolic Thickness 1.4 cm 0.6 - 1.0 / 0.6 - 0.9 cm IVS Systolic Thickness 2.1 cm LVPW Diastolic Thickness 1.3 cm 0.6 - 1.0 / 0.6 - 0.9 cm LVPW Systolic Thickness 1.5 cm LVOT Diameter 2.0 cm LV Ejection Fraction 2D Teich 65.4 % LV Ejection Fraction MOD 2C 61.6 % LV Ejection Fraction 2C AL 62.7 % LA Diameter 3.5 cm LA Width 3.4 cm LA Height 3.0 cm RA Width 3.5 cm RA Height 3.7 cm Aorta at Sinotubular Diameter 3.3 cm IVC Diameter 1.7 cm M-MODE Aortic Annulus Diameter 3.7 cm LA Ao Ratio MM 0.9 MV E Point Septal Separation 0.4 cm DOPPLER AV Peak Velocity 106.0 cm/s LVOT Peak Velocity 100.0 cm/s AV Area Cont Eq vti 2.2 cm squared AV Area Cont Eq pk 3.0 cm squared MV Peak Velocity 78.0 cm/s MV Area PHT 2.9 cm squared Mitral E to A Ratio 0.6 MV E' Velocity 23.5 cm/s Mitral E to MV E' Ratio 6.5 Mitral E to LV E' Lateral Ratio 6.7 Mitral E to LV E' Septal Ratio 6.3 TR Peak Velocity 302.3 cm/s TR Peak Gradient 36.5 mmHg TV Peak E Velocity 52.0 cm/s Right Atrial Pressure 10.0 mmHg Pulmonary Artery Systolic Pressu 46.5 mmHg PV Peak Velocity 93.0 cm/s FINDINGS Left Ventricle Normal left ventricular size, systolic function and wall thickness, with no regional wall motion abnormalities. Grade I/IV diastolic dysfunction (abnormal relaxation filling pattern), normal to mildly elevated filling pressures. Left ventricular ejection fraction is estimated at 55-60 %. Right Ventricle Normal right ventricular size and systolic function. Mild pulmonary hypertension, RVSP 46.5 mmHg. Right Atrium The right atrium is normal in size. Left Atrium The left atrium is normal in size. Mitral Valve Structurally normal mitral valve without significant stenosis or prolapse. There is no mitral regurgitation. Aortic Valve Structurally normal aortic valve without significant sclerosis or stenosis. There is no aortic regurgitation. Tricuspid Valve Structurally normal tricuspid valve. Moderate tricuspid valve regurgitation. Pulmonic Valve Pulmonic valve not well visualized. Pericardium Normal pericardium without effusion. Aorta Normal ascending aorta dimension. IVC The inferior vena cava pulmonary and hepatic veins appear normal. CONCLUSIONS Normal left ventricular size, systolic function and wall thickness, with no regional wall motion abnormalities. Grade I/IV diastolic dysfunction (abnormal relaxation filling pattern), normal to mildly elevated filling pressures. Left ventricular ejection fraction is estimated at 55-60 %. Normal right ventricular size and systolic function. Mild pulmonary hypertension, RVSP 46.[address] Waldo Strong MD (Electronically Signed) Final Date: 06 January 2022 15:12 S
[2022-01-06 06:22] LABS: ABG PCO2 39.9 mmHg (35-45); ABG PH Result 7.31 (7.35-7.45); Arterial Blood Gas Hematocrit 39.4 % (42-52); Base Excess ABG -5.9 mmol/L (-2.0-2.0); Blood Gas Allen Test Pos; Blood Gas Sample Site Radial, left; Blood Gas Sample Type Arterial; Blood Gas Tidal Volume 0.45; Oxygen Device VENT; PO2 ABG 63.8 mmHg (80.0-100.0)
[2022-01-06 06:50] LABS: Bacillus cereus group Not Detected (NOT DETECT); Bacillus subtillis group Not Detected (NOT DETECT); Corynebacterium Not Detected (NOT DETECT); Cutibacterium acnes (P.acnes) Not Detected (NOT DETECT); Enterococcus Not Detected (NOT DETECT); Enterococcus faecalis Not Detected (NOT DETECT); Enterococcus faecium Not Detected (NOT DETECT); Lactobacillus species Not Detected (NOT DETECT); Listeria Not Detected (NOT DETECT); Listeria monocytogenes Not Detected (NOT DETECT); Micrococcus Not Detected (NOT DETECT); Pan Candida Not Detected (NOT DETECT); Pan Gram-Negative Not Detected (NOT DETECT); Staphylococcus epidermidis Not Detected (NOT DETECT); Staphylococcus lugdunensis Not Detected (NOT DETECT); Staphylococcus species Detected (NOT DETECT); Streptococcus agalactiae Not Detected (NOT DETECT); Streptococcus anginosus group Not Detected (NOT DETECT); Streptococcus pneumoniae Not Detected (NOT DETECT); Streptococcus pyogenes Not Detected (NOT DETECT); Streptococcus species Not Detected (NOT DETECT); mecA Not Detected (NOT DETECT); mecC Not Detected (NOT DETECT)
--- NOTE | 2022-01-06 06:51 | PM.PN ---
Subjective Subjective: Patient is still intubated. He is on a norepinephrine drip. The dose is 12 mcg/min. He is also on fentanyl and midazolam drips. He apparently gets somewhat agitated if he wakes up. The medications are being titrated to keep his systolic blood pressure around 90 mmHg. Urine output is fair. A central line was placed last evening. His white blood cell count is up this morning to 18.3. His CPK is down to 1127. 6-hour troponin was 272. Vitals/I&O/Wt Last Vital Signs Temp 101.4 F H 01/05/22 13:45 Pulse 86 01/06/22 04:30 Resp 16 01/06/22 06:10 BP 87/63 01/06/22 04:30 Pulse Ox 95 01/06/22 06:10 01/05/22 01/05/22 01/06/22 14:59 22:59 06:59 Intake Total 3685.326 / 3685.326 1050.094 / 4735.420 Output Total 375 / 375 Balance 3685.326 / 3685.326 675.094 / 4360.420 Weight last 48 hrs Weight 157 lb Weight 157 lb Physical Exam Narrative: GENERAL: In general he is still intubated and sedated. HEENT: Exam within normal limits. NECK: Supple without jugular vein distention. The carotid upstroke is normal without bruits. BACK: Exam normal. LUNGS: Clear. HEART: Regular rate and rhythm. ABDOMEN: Benign without organomegaly or tenderness. EXTREMITIES: No edema. NEUROLOGIC: Examination not performed due to sedation and intubation. SKIN: Unremarkable. Urinary Catheter Management: Nj: Cath Placed During This Visit: yes Reason for Continuing Indwelling Catheter: Accurate Measurement of Urinary Output in Critically Ill Patients Urinary Catheter Date of Insertion: 01/05/22 Urinary Catheter Time of Insertion: 15:20 Data : 01/06/22 03:29 01/06/22 03:29 Micro: Microbiology 01/05/22 14:05 Blood Culture - Preliminary Blood 01/05/22 13:55 Blood Culture - Preliminary Blood A&P Assessment and plan (1) Elevated creatine kinase: Status: Acute (2) NICOLETTE (acute kidney injury): Status: Acute (3) Septic shock: Status: Acute (4) Acute encephalopathy: Status: Acute (5) Respiratory failure: Status: Acute (6) Glucose intolerance: Status: Acute (7) Elevated troponin: Status: Acute (8) Hypertension: Status: Acute (9) Dyslipidemia: Status: Acute (10) Stented coronary artery: Status: Acute (11) CAD (coronary artery disease): Status: Acute (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 Plan is continued medical treatment for the presumed diagnosis of sepsis. The troponin elevation is demand ischemia from his other underlying medical problems primarily the sepsis. Attestations Medical Necessity Statement*: Needs continued treatment in the ICU for above-mentioned medical problems. Coding Level of Care Code Acute Bookkeeper Assistant for Chg Fwd History Comprehensive Exam Comprehensive Medical Decision Making High Complexity Diagnoses Elevated creatine kinase R74.8 NICOLETTE (acute kidney injury) N17.9 Septic shock A41.9; R65.21 Acute encephalopathy G93.40 Respiratory failure J96.90 Glucose intolerance E74.39 Elevated troponin R77.8 Hypertension I10 Dyslipidemia E78.5 Stented coronary artery Z95.5 CAD (coronary artery disease) I25.10 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 History of abdominal aortic aneurysm (AAA) repair Z98.890 Peripheral arterial disease with history of revascularization I73.9; Z98.890 New onset left bundle branch block (LBBB) I44.7 Wound dehiscence T81.30XA
[2022-01-06] MEDS: pantoprazole DR 40 mg Tablet PO (08:57)
[2022-01-06] MEDS: clopidogrel 75 mg Tablet PO (08:57)
[2022-01-06] MEDS: gabapentin 300 mg Capsule PO (08:57)
--- NOTE | 2022-01-06 09:00 | CTR_ITS ---
PROCEDURE INFORMATION: Exam: CT Head Without Contrast Exam date and time: 01/06/2022 10:18 AM Age: 86 years old Clinical indication: Altered mental status/memory loss; Additional info: AMS, anisocoria TECHNIQUE: Imaging protocol: Computed tomography of the head without contrast. Radiation optimization: All CT scans at this facility use at least one of these dose optimization techniques: automated exposure control; mA and/or kV adjustment per patient size (includes targeted exams where dose is matched to clinical indication); or iterative reconstruction. COMPARISON: No relevant prior studies available. RADIATION DOSE METRICS: Total DLP (mGy-cm): 912.58 FINDINGS: Brain: Hypodensity is seen in the periventricular cerebral white matter. This change is nonspecific but is most likely secondary to chronic ischemia within microvascular distributions. No intra or extra-axial masses, lesions or collections. Chandler white matter distinction is maintained throughout the brain. No radiographic evidence of intracranial hemorrhage. Cerebral ventricles: Ventricles are enlarged on the basis of mild diffuse cerebral volume loss. Paranasal sinuses: Visualized sinuses are unremarkable. No fluid levels. Mastoid air cells: Visualized mastoid air cells are well aerated. Bones/joints: Unremarkable. No acute fracture. Soft tissues: Unremarkable. CT/CT head wo con* [id number] IMPRESSION: No radiographic evidence of acute intracranial pathology.
--- NOTE | 2022-01-06 09:10 | PC.NURSE ---
Dr. Crenshaw at bedside observed Levo at 16 mcg/min HCP to pu in Vaso, continue with current abx and v.o. for WTD dressing to R groin
--- NOTE | 2022-01-06 10:11 | PC.CHAP ---
Pastoral Care Encounter/Spiritual Assessment Type of Contact [] Declined aoc director intelligence officer visit [] Patient/Family/Request visit [] Outpatient visit [] Follow-up visit [] Physician referral [] Code/Alert [x] Routine visit [] Staff referral [] Actively dying [] Patient sleeping [] Family support [] [] Out of room [] Palliative care [] [] Receiving care in room [] Pre-surgical visit [] Trauma [] Long length of stay [x] ICU visit [x] Other: vent Relational/Emotional Strength [] Patient feels connected with others/family/visitors/staff [] Distress [] Loneliness/isolation [] Abandonment Spirituality of Patient [] Person of Padmini [] Attends Religious of their Padmini [] Believes in Prayer [] Reads Bible or Adventism materials [] There are Spiritual issues to be addressed Deputy Commonwealth'S Attorney Interventions [x] Prayer [] Active listening [] Non-anxious presence [] Spiritual/emotional support [] Crisis/trauma care [] Spiritual counseling [] Bereavement support [] Provided bereavement packet [] Provided Bible/devotional materials [] Provided toy/stuffed animal, coloring book to patient or family member [] Provided Communion [] Anointing/[place] [] Salvation [x] Completed spiritual assessment [] Other: Impact on Illness or Injury [] Angry [] Fearful [] Anxious [] Often cries [] Exhaustion [] Unable to work [] Unable to attend lutheran [] Unable to walk/stand [] Unable to read [] Unable to drive [] Unable to eat/drink [] Unable to sleep [] Unable to be with family [] Patient intubated [] Other: Summary Time spent with patient
--- NOTE | 2022-01-06 14:44 | PC.NURSE ---
Levo at max, Vaso 0.08, Dr. Michaels gave t.o. to increase max on levophed to 50 mcg/min
[2022-01-06 15:40] LABS: ABG PCO2 36.5 mmHg (35-45); ABG PH Result 7.32 (7.35-7.45); Alveolar-Arterial Oxygen Gradi 32.1 mmHg (5-10); Arterial Blood Gas Hematocrit 40.3 % (42-52); Base Excess ABG -6.9 mmol/L (-2.0-2.0); Blood Gas Allen Test Pos; Blood Gas Operator Identificat CAK; Blood Gas Sample Site Brachial, left; Blood Gas Sample Type Arterial; Blood Gas Tidal Volume 0.45; Carboxyhemoglobin 0.6 %THgb (0.4-20.1); HCO3 ABG 18.6 mmol/L (22-26); Ionized Calcium Level - ABG 1.1 mmol/L (1.1-1.4); Methemoglobin 0.3 % (0.4-1.5); Oxygen Device VENT; Oxygen Saturation ABG 92.7; PO2 ABG 62.1 mmHg (80.0-100.0); Potassium Level - ABG 3.5 mmol/L (3.5-5.0); Total Hemoglobin 13.2 g/dL (14-18)
[2022-01-06] MEDS: norepinephrine 8 MG in dextrose 5 % 500 ML 114.3 MG IV (16:42)
[2022-01-06] MEDS: vancomycin 750 MG in sodium chloride 0.9% 250 ML 250 MG IV (16:44)
[2022-01-06] MEDS: enoxaparin 40 mg/0.4 mL Syringe SUBCUT (16:52)
--- NOTE | 2022-01-06 17:23 | XRR_ITS ---
PROCEDURE INFORMATION: Exam: XR Abdomen Exam date and time: 01/06/2022 5:33 PM Age: 86 years old Clinical indication: Other: Abdominal ischemia possible; Additional info: Possible bowl ischemia TECHNIQUE: Imaging protocol: XR of the abdomen. Views: Frontal supine view of the abdomen. 1 View. COMPARISON: CT abdomen pelvis [facility] [id number] 01/05/2022 2:13 PM FINDINGS: Tubes, catheters and devices: There is a nasogastric tube in place with its tip in the stomach. Diaphragm: There is moderate elevation left hemidiaphragm. Gastrointestinal tract: Bowel gas pattern is grossly unremarkable. Intraperitoneal space: There are surgical clips in the right upper quadrant from cholecystectomy. Organs: No urinary tract calculi are demonstrated. Vasculature: Vascular graft is seen in the aorta extending into the left iliac artery as seen on the previous CT scan. There are multiple vascular coils to the right of midline more tear in the right common iliac on the CT scan. Bones/joints: There is moderate scoliosis concave towards the left. There is mildly displaced fracture of the lateral right 8th rib. XR/XR abdomen 1V* [id number] IMPRESSION: 1. Nasogastric tube tip is in the stomach. 2. Unremarkable bowel gas pattern. 3. Right 8th rib fracture.
--- NOTE | 2022-01-06 17:25 | PC.NURSE ---
Datamichael at bedside, gave v.o. for abd xray, lactic lab and 50 ml of albumin
--- NOTE | 2022-01-06 18:36 | PC.NURSE ---
intra abdominal pressure performed per Datar, it was 10, Datar notified no n.o.
[2022-01-06] MEDS: albumin 12.5 GM/50 ML VIAL IV (18:39)
[2022-01-06 18:58] LABS: Lactic Sepsis W/Reflex 4.8 mmol/L (0.5-2.2)
--- NOTE | 2022-01-06 19:59 | PM.ACPR ---
Acute Procedures Central Line Placement: Right IJ: Time out performed: Yes Patient placed on monitor/pulse ox: Yes MD prep: mask, gown and gloves Central line prep: Chlorhexidine scrub and sterile drapes applied Local anesthesia used: lidocaine 1% Ultrasound used for placement: Yes Central line lumen inserted: triple Post procedure: sutured in place, good blood return, all ports aspirated, flushed, capped and sterile dressing applied Post procedure x-ray: tip of catheter in good position and no pneumothorax seen Patient tolerated procedure: well and no complications
[2022-01-06 20:08] LABS: Reflex Lactate Order REFLEX LACTIC ORDERD
[2022-01-06] MEDS: norepinephrine 8 MG in dextrose 5 % 500 ML 91.44 MG IV (21:59)
[2022-01-06 22:28] LABS: Lactic Acid level (Lactate) 1.4 mmol/L (0.5-2.2)
--- NOTE | 2022-01-06 22:31 | PM.CONSULT ---
Providers/Reason For Consult Consulting Physician/Specialty*: Suhas Fonseca MD/Pulmonary Critical Care Reason for Consult*: Septic shock Requesting Physician: Ar Crenshaw Attending Physician: Ar Crenshaw History of Present Illness History of Present Illness Upon review of records from [facility] as well as history and physical and progress notes so far in this admission: Patient is Chano Cuenca is a 86 year old male with history of CAD, s/p 5 stents per in the past, PAD with known femoropopliteal bypass occlusion, AAA, s/p endovascular stent repair via bilateral femoral artery cutdown. Patient has CT angio abdomen pelvis with contrast at [facility] on 08/31/2021-reported interval occlusion of femorofemoral bypass, severe calcified stenosis of proximal right common iliac artery and moderate calcified stenosis of proximal left common iliac artery. Aneurysmal dilation of infrarenal abdominal aorta which measures 4.9 cm compared to 3.8 on 10/10/1999 2020. 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 On 09/09/2021 patient underwent ultrasound-guided bilateral femoral sticks with angiogram of aortobilateral iliac arteries, angiogram of femoral to femoral graft, bilateral femoral cutdowns, aortic unilateral iliac repair of abdominal aortic aneurysm with 2 grafts, left iliac extension, cutdown femoral-femoral graft with a combination of Suzan thrombectomy and open thrombectomy-there was a complication postprocedure with perforation of the right common iliac artery and patient lost 750 cc plus another 2 to 3 units intraperitoneal bleeding from the perforation. Findings of the procedure were the femorofemoral graft was clotted and the large fibrin plug on the left side that required open graftotomy and open thrombectomy. Patient has large infrarenal abdominal aortic aneurysm very tight calcified lesion at the origin of right common iliac artery. As per patient post to procedure patient bilateral femoral artery cutdown in September 2021 patient has wound dehiscence with infection in the right groin after procedure, as per he has undergone treatment for 6 weeks of antibiotics @ follows up at [facility]. Family notes he has been having recurrent falls recently, last week had a fall outside on some rocks, son states he got up and got back by himself. He reportedly had a fall the night prior to admission and was noted to be confused-incomprehensible speech. Brought to emergency room on 01/05/2022 - noted to be confused, restless, unable to provide history-noted febrile with hypoxia requiring 5 L oxygen with saturation in high 80s. Appeared to be in respiratory distress-intubated and placed on ventilator. Lab significant for leukocytosis, lactic acidosis 4.1, NICOLETTE, creatinine 1.4, CT abdomen pelvis showed gastric distention with air-fluid level and normal caliber duodenum and proximal jejunum with no evidence of high-grade small or large bowel obstruction.Aortic endograft with left iliac extension-excluded aneurysm measuring 4.2 x 4.2 x 7.2 cm partially evaluated femorofemoral bypass with surgical occlusion of right common iliac, atrophic left kidney. 15 mm renal lesion on right likely hemorrhagic or proteinaceous cyst. Distal rectal and sigmoid thickening with mild surrounding induration likely infectious or inflammatory or reactive. Rectosigmoid constipation and distention. Blood cultures were sent and patient was started on Zosyn, vancomycin, started on sepsis protocol with 30 cc/kg fluid resuscitation. Initial EKG showed new left bundle branch block compared to [facility] EKG-troponin elevated 137, CK elevated 2000 789-assessed by cardiology on patient underwent coronary angiography which did not reveal any significant coronary lesions. Minor in-stent restenosis of RCA noted. Meanwhile patient was requiring Levophed 30 MCG/hour and vasopressin. Pulmonary critical care consulted for shock Seen patient at bedside intubated, sedated with Versed 6 mg/hour and fentanyl 100 mg/hour on CMV with FiO2 50% Currently requiring Levophed 30 MCG/hour and vasopressin 0.03 Wound cultures and blood cultures grew staph-sensitivity pending Other labs and pertinent imaging reviewed Medications/Allergies Home Medications Medication Instructions Recorded Confirmed Last Taken Type cefdinir 300 mg capsule See Rx Instructions .ROUTE .COMPLEX 01/05/22 01/05/22 Unknown History clopidogrel 75 mg tablet 75 mg PO DAILY 01/05/22 01/05/22 Unknown History diclofenac sodium 1 % topical gel 2 g TOPICAL Q6H PRN 01/05/22 01/05/22 Unknown History ergocalciferol (vitamin D2) 1,250 50,000 unit PO Q7D 01/05/22 01/05/22 Unknown History mcg (50,000 unit) capsule (Vitamin D2) fluoxetine 20 mg capsule 60 mg PO QAM 01/05/22 01/05/22 Unknown History gabapentin 300 mg capsule 300 mg PO TID 01/05/22 01/05/22 Unknown History hydrochlorothiazide 25 mg tablet 25 mg PO DAILY 01/05/22 01/05/22 Unknown History hydromorphone 4 mg tablet 4 mg PO Q6H PRN 01/05/22 01/05/22 Unknown History lisinopril 20 mg tablet 20 mg PO DAILY 01/05/22 01/05/22 Unknown History metoprolol succinate 25 mg 25 mg PO BID 01/05/22 01/05/22 Unknown History tablet,extended release 24 hr naloxegol 12.5 mg tablet (Movantik) 12.5 mg PO DAILY 01/05/22 01/05/22 Unknown History nitroglycerin 2.5 mg 5 mg PO BID 01/05/22 01/05/22 Unknown History capsule,extended release (Nitro-Time) pantoprazole 40 mg tablet,delayed 40 mg PO DAILY 01/05/22 01/05/22 Unknown History release zolpidem 10 mg tablet 10 mg PO BEDTIME 01/05/22 01/05/22 Unknown History Allergies Allergy/AdvReac Type Severity Reaction Status Date / Time diphenhydramine Allergy Severe pt states Verified 01/05/22 14:29 [From Benadryl] makes him go crazy Current Medications Generic Name Dose Route Start Last Admin Trade Name Nichole PRN Reason Stop Dose Admin Acetaminophen 650 mg 01/05/22 17:47 01/05/22 22:28 Acetaminophen 325 Mg Tablet PO 650 mg Q6H PRN Administration Mild/Mod Pain Or Temp >/= 101 Clopidogrel Bisulfate 75 mg 01/06/22 09:00 01/06/22 08:57 Clopidogrel 75 Mg Tablet PO 75 mg DAILY DEANDRE Administration Enoxaparin Sodium 40 mg 01/05/22 17:47 01/06/22 16:52 Enoxaparin 40 Mg/0.4 Ml Syringe SUBCUT 40 mg Q24H DEANDRE Administration Fluoxetine HCl 60 mg 01/06/22 06:00 01/06/22 05:32 Fluoxetine 20 Mg Capsule PO 60 mg QAM DEANDRE Administration Gabapentin 300 mg 01/06/22 09:00 01/06/22 08:57 Gabapentin 300 Mg Capsule PO 300 mg DAILY DEANDRE Administration Midazolam HCl 100 mg/ Sodium 100 mls @ 0 mls/hr 01/05/22 15:00 01/06/22 19:00 Chloride IV 4 mg/hr .Q0M DEANDRE 4 mls/hr Titration Protocol Per Protocol Fentanyl 2,500 mcg/ Sodium 250 mls @ 0 mls/hr 01/05/22 15:00 01/06/22 19:00 Chloride IV Infused .Q0M DEANDRE Titration Protocol Per Protocol Piperacillin Sod/Tazobactam 50 mls @ 12.5 mls/hr 01/05/22 22:30 01/06/22 22:05 Sod 3.375 gm/ Sodium Chloride IV 12.5 mls/hr Q8H DEANDRE Administration Protocol Vancomycin HCl 750 mg/ Sodium 250 mls @ 250 mls/hr 01/06/22 17:00 01/06/22 16:44 Chloride IV 250 mls/hr Q24H DEANDRE Administration Norepinephrine Bitartrate 8 mg 508 mls @ 0 mls/hr 01/06/22 14:15 01/06/22 21:59 / Dextrose IV 24 mcg/min .Q0M DEANDRE 91.44 mls/hr Administration Protocol Per Protocol Vasopressin 40 unit/ Sodium 40 mls @ 0.03 mls/min 01/06/22 19:15 01/06/22 21:59 Chloride IV 0.03 mls/min CONT DEANDRE Administration Non-Formulary Medication 12.5 mg 01/06/22 09:00 01/06/22 08:57 Naloxegol [Movantik] PO Not Given DAILY DEANDRE Pantoprazole Sodium 40 mg 01/05/22 17:47 01/06/22 08:[address] 40 Mg Tablet PO 40 mg DAILY DEANDRE Administration PFSH Acute PFSH: Medical History CAD (coronary artery disease) Chronic back pain Dyslipidemia Elevated lactic acid level Elevated troponin Femoral-popliteal bypass graft occlusion GERD (gastroesophageal reflux disease) Glucose intolerance Hypertension Nephrolithiasis New onset left bundle branch block (LBBB) Peripheral arterial disease with history of revascularization Respiratory failure Surgical site infection Surgical History History of abdominal aortic aneurysm (AAA) repair History of ankle surgery History of endovascular stent graft for abdominal aortic aneurysm (AAA) History of ureter stent Hx of cholecystectomy Stented coronary artery Family History Father CAD (coronary artery disease) [place] at 65 Sister Cancer Social History Smoking and tobacco status: former smoker Alcohol intake: never Lives independently: Yes Household members: spouse Marital status: Vitals/I&O/Wt Last Vital Signs Temp 97.9 F 01/06/22 09:44 Pulse 103 H 01/06/22 16:30 Resp 17 01/06/22 19:29 BP 119/66 01/06/22 16:30 Pulse Ox 95 01/06/22 19:29 01/06/22 01/06/22 01/06/22 06:59 14:59 22:59 Intake Total 1050.094 / 4735.420 304 / 304 1147.400 / 1451.400 Output Total 375 / 375 100 / 100 Balance 675.094 / 4360.420 304 / 304 1047.400 / 1351.400 Weight last 48 hrs Weight 157 lb Weight 157 lb Physical Exam Narrative: PHYSICAL EXAM: General: lying in bed, sedated and intubated. 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 SKIN: no rash LDA: # CVC: Urinary Catheter Management: Nj: Cath Placed During This Visit: yes Reason for Continuing Indwelling Catheter: Accurate Measurement of Urinary Output in Critically Ill Patients Urinary Catheter Date of Insertion: 01/05/22 Urinary Catheter Time of Insertion: 15:20 Data : 01/07/22 05:51 01/07/22 02:40 Other Labs: Radiology Impressions Abdomen/Pelvis CT 01/05/22 13:48 IMPRESSION: 1. Air-fluid level in the stomach with gaseous distention of the stomach. Air-fluid levels in normal caliber duodenum and proximal jejunum. 2. No evidence of high-grade small or large bowel obstruction. 3. No hydronephrosis in either kidney. 4. Periaortic endograft with LEFT iliac extension. Excluded aneurysm measures 4.2 x 4.2 x 7.2 cm 5. Evidence of partially evaluated femorofemoral bypass graft. 6. Rectosigmoid constipation with distention. Diffuse distal sigmoid and rectal wall thickening with mild surrounding induration likely infectious/inflammatory or reactive. 7. Increased attenuation upper pole RIGHT renal lesion measuring 15 mm likely hemorrhagic or proteinaceous cyst. This can be followed up with ultrasound Soft Tissue Ultrasound 01/05/22 17:47 IMPRESSION: 1. Approximate 3 x 2 cm subcutaneous hypoechoic irregular solid soft tissue mass in the right groin region with well-defined draining sinus extending to the skin surface. The mass partially encases a major vessel in this region probably the common femoral artery. Most likely diagnosis is complex abscess or phlegmon. Other possibilities would include hematoma or less likely soft tissue neoplasm. Atypical pseudoaneurysm might also be a consideration. 2. No subcutaneous drainable fluid collection was demonstrated. Chest X-Ray 01/06/22 04:57 IMPRESSION: Severe pulmonary edema. Head CT 01/06/22 09:00 IMPRESSION: No radiographic evidence of acute intracranial pathology. Abdomen X-Ray 01/06/22 17:23 IMPRESSION: 1. Nasogastric tube tip is in the stomach. 2. Unremarkable bowel gas pattern. 3. Right 8th rib fracture. Laboratory Results WBC 5.6 10^3/uL (4.0-10.0) 01/07/22 02:40 RBC 3.95 10^6/uL (4.1-5.3) L 01/07/22 02:40 Hgb 11.5 g/dL (11.7-16.6) L 01/07/22 02:40 Hct 35.0 % (42.0-52.0) L 01/07/22 02:40 MCV 88.6 fl (80-94) 01/07/22 02:40 MCH 29.1 pg (28.0-34.0) 01/07/22 02:40 MCHC 32.9 g/dL (30.0-36.0) 01/07/22 02:40 RDW 13.9 % (12.1-15.1) 01/07/22 02:40 Plt Count 168 10^3/cmm (130-400) D 01/07/22 05:51 MPV 11.1 fL (7.4-10.4) H 01/07/22 02:40 Neut % (Auto) 74.5 % 01/06/22 03:29 Lymph % (Auto) Not Reportable 01/07/22 02:40 Cameron % (Auto) Not Reportable 01/07/22 02:40 Eos % (Auto) 0.1 % 01/06/22 03:29 Baso % (Auto) 0.3 % 01/06/22 03:29 Neut # (Auto) 13.66 10^3/uL (1.8-7.7) H 01/06/22 03:29 Lymph # (Auto) Not Reportable 01/07/22 02:40 Cameron # (Auto) Not Reportable 01/07/22 02:40 Eos # (Auto) 0.0 10^3/uL (0.0-0.8) 01/06/22 03:29 Baso # (Auto) 0.1 10^3/uL (0.0-0.1) 01/06/22 03:29 Nucleated RBC % (auto) 0 % 01/06/22 03:29 Total Counted 100 (0-100) 01/07/22 02:40 Atypical Lymphs % 0.0 % (0-5) 01/07/22 02:40 Absolute Neutrophils 4.6 10^3/cmm (1.4-6.5) 01/07/22 02:40 Segmented Neutrophils 71 % 01/07/22 02:40 Abs Segm Neuts (Man) 4.0 10/cmm (1.6-7.1) 01/07/22 02:40 Band Neutrophils 12.0 % 01/07/22 02:40 Abs Band Neuts (Man) 0.7 10^3/cmm (0.0-1.2) 01/07/22 02:40 Absolute Lymphocytes 0.6 10^3/cmm (1.2-3.4) L 01/07/22 02:40 Lymphocytes (Manual) 10 % 01/07/22 02:40 Monocytes (Manual) 6.0 % 01/07/22 02:40 Absolute Monocytes 0.3 10^3/cmm (0.1-0.6) 01/07/22 02:40 Eosinophils (Manual) 1 % 01/07/22 02:40 Absolute Eosinophils 0.0 10^3/cmm (0.0-0.7) 01/07/22 02:40 Basophils (Manual) 0.0 % 01/07/22 02:40 Absolute Basophils 0.0 10^3/cmm (0.0-0.2) 01/07/22 02:40 Nucleated RBCs # 0.0 /100WBC 01/06/22 03:29 Toxic Vacuolation 1+ H 01/07/22 02:40 Platelet Estimate Decreased (Normal) 01/07/22 02:40 PT 16.20 SECONDS (12.1-14.9) H 01/05/22 13:55 INR 1.27 (0.8-1.2) H 01/05/22 13:55 APTT 83.8 SECONDS (23.9-36.7) H D 01/07/22 10:25 D-Dimer 5.23 ug/mIFEU (0-0.59) H 01/05/22 13:55 Specimen Type Arterial 01/07/22 02:37 Sample Site Radial, left 01/07/22 02:37 ABG pH 7.37 (7.35-7.45) 01/07/22 02:37 ABG pCO2 30.2 mmHg (35-45) L 01/07/22 02:37 ABG pO2 54.7 mmHg (80.0-100.0) L 01/07/22 02:37 ABG HCO3 17.5 mmol/L (22-26) L 01/07/22 02:37 ABG O2 Saturation 90.8 01/07/22 02:37 ABG Base Excess -6.7 mmol/L (-2.0-2.0) L 01/07/22 02:37 Maik Test Pos 01/07/22 02:37 A-a O2 Gradient 43.4 mmHg (5-10) H 01/07/22 02:37 Hematocrit 36.8 % (42-52) L 01/07/22 02:37 Hgb O2 Saturation 89.7 % (95-100) L 01/07/22 02:37 Carboxyhemoglobin 0.7 %THgb (0.4-20.1) 01/07/22 02:37 Methemoglobin 0.5 % (0.4-1.5) 01/07/22 02:37 Total Hemoglobin 12.0 g/dL (14-18) L 01/07/22 02:37 Sodium 136.0 mmol/L (131-143) 01/07/22 02:37 Potassium 3.5 mmol/L (3.5-5.0) 01/07/22 02:37 Glucose 243.0 mg/dL (70-115) H 01/07/22 02:37 Ionized Calcium 1.0 mmol/L (1.1-1.4) L 01/07/22 02:37 O2 Delivery Device Vent 01/07/22 02:37 O2 Liters/Min 5.0 % 01/05/22 14:25 FiO2 60.0 % 01/07/22 02:37 Tidal Volume 0.45 01/07/22 02:37 PEEP 8.0 cmH20 01/07/22 02:37 Flight Paramedic ID Monro 01/07/22 02:37 Sodium 134 mmol/L (136-145) L 01/07/22 02:40 Potassium 3.5 mmol/L (3.5-5.1) 01/07/22 02:40 Chloride 102 mmol/L (98-107) 01/07/22 02:40 Carbon Dioxide 17 mmol/L (22-29) L 01/07/22 02:40 Anion Gap 18.5 (5-19) 01/07/22 02:40 BUN 32 mg/dL (8-23) H 01/07/22 02:40 Creatinine 1.6 mg/dL (0.7-1.2) H 01/07/22 02:40 GFR Calculation Not Reportable 01/07/22 02:40 Glucose 240 mg/dL (65-115) H 01/07/22 02:40 Calculated Osmolality 293 mOsm/kg (285-295) 01/07/22 02:40 Lactic Acid 4.8 mmol/L (0.5-2.2) H* 01/06/22 18:15 Lactic Acid (Sepsis) 1.4 mmol/L (0.5-2.2) 01/06/22 21:46 Lactate 2.2 mmol/L (0.5-2.2) 01/07/22 02:41 Calcium 6.9 mg/dL (8.5-10.5) L 01/07/22 02:40 Magnesium 1.9 mg/dL (1.7-2.3) 01/07/22 02:40 Total Bilirubin 0.8 mg/dL (0.15-1.2) 01/07/22 02:40 AST 19 U/L (0-40) 01/07/22 02:40 ALT 21 U/L (0-41) 01/07/22 02:40 Alkaline Phosphatase 60 IU/L (40-130) 01/07/22 02:40 Creatine Kinase 222 U/L (39-308) 01/07/22 02:41 CK-MB (CK-2) 5.5 ng/mL (0-10.4) 01/05/22 13:55 CK-MB (CK-2) Rel Index % (0.0-5.3) 01/05/22 13:55 Troponin T Baseline 137 ng/L (0-15) H* 01/05/22 13:55 Troponin T 120 Minute 186.6 ng/L (0-15) H 01/05/22 16:05 Delta Troponin T 49.6 ABS# (0-10) H* 01/05/22 16:05 Troponin T Hi Sens 6Hr 272.4 ng/L (0-15) H 01/05/22 20:56 Troponin T Hi Sens 6Hr Delta 135.4 ng/L (0-12) H* 01/05/22 20:56 Total Protein 5.3 g/dL (6.6-8.7) L 01/07/22 02:40 Albumin 2.2 g/dL (3.5-5.2) L 01/07/22 02:40 Globulin 3.1 g/dL (1.3-4.6) 01/07/22 02:40 Lipase 7 U/L (13-60) L 01/05/22 13:55 Urine Color Yellow (Yellow) 01/05/22 16:05 Urine Appearance Clear (CLEAR) 01/05/22 16:05 Urine pH 5 (5-7) 01/05/22 16:05 Ur Specific Outing 1.010 (1.005-1.030) 01/05/22 16:05 Urine Protein Trace (Negative) 01/05/22 16:05 Urine Glucose (UA) Norm (Normal) 01/05/22 16:05 Urine Ketones Negative (Negative) 01/05/22 16:05 Urine Blood 3+ (Negative) H 01/05/22 16:05 Urine Nitrate Negative (Negative) 01/05/22 16:05 Urine Bilirubin Neg (Negative) 01/05/22 16:05 Urine Urobilinogen Norm mg/dL (Negative) 01/05/22 16:05 Ur Leukocyte Esterase Negative (Negative) 01/05/22 16:05 Urine RBC 0-4 /hpf (0-2) H 01/05/22 16:05 Urine WBC 0-4 /hpf (0-5) H 01/05/22 16:05 Ur Squamous Epith Cells 0-4 /hpf (0-5) H 01/05/22 16:05 Amorphous Sediment 2+ /hpf 01/05/22 16:05 Urine Bacteria Trace /hpf (NONE) 01/05/22 16:05 Serum Ketones Negative (Negative) 01/05/22 13:55 Coronavirus 229E (PCR) Not detected (NOT DETECT) 01/05/22 19:20 SARS-CoV-2 (PCR) Not detected (NOT DETECT) 01/05/22 19:20 Micro: Microbiology 01/05/22 14:05 Blood Culture - Preliminary Blood Staphylococcus aureus 01/05/22 13:55 Blood Culture - Preliminary Blood Staphylococcus aureus 01/05/22 16:05 Gram Stain - Final Groin Wound Culture - Preliminary Staphylococcus aureus 01/05/22 18:00 Gram Stain - Final Sputum - Endotracheal Tube Aspirate Sputum Culture - Preliminary A&P Assessment and plan (1) Acute encephalopathy: Status: Acute (2) NICOLETTE (acute kidney injury): Status: Acute (3) Septic shock: Status: Acute (4) History of endovascular stent graft for abdominal aortic aneurysm (AAA): Status: Acute (5) History of abdominal aortic aneurysm (AAA) repair: Status: Acute (6) Peripheral arterial disease with history of revascularization: Status: Acute (7) New onset left bundle branch block (LBBB): Status: Acute (8) Respiratory failure: Status: Acute (9) Wound dehiscence: Status: Acute (10) Staphylococcus aureus bacteremia: Status: Acute Plan 86-year-old male with past medical history of CAD, s/p 5 stents per in the past, PAD with known femoropopliteal bypass occlusion, AAA, s/p endovascular stent repair via bilateral femoral artery cutdown On 09/09/2021-later complicated with wound Dehiscence in the right groin treated with 6 weeks antibiotics-presented to emergency room for confusion and respiratory failure-intubated and admitted to ICU-currently noted to be in septic shock secondary to staph bacteremia from right groin wound dehiscence. #BUILDING MAINTENANCE WORKER:Acute confusion-secondary to septic encephalopathy -Currently being treated with antibiotics for staph bacteremia -Currently on sedation with fentanyl and Versed 6 Mg -Recommended to taper down fentanyl and turn off Versed -We will do awakening trial #Pulm:On mechanical ventilator for hypoxic respiratory failure secondary to fluid overload -Intubated 01/05/2022:-Currently on CMV 450/16/50 %/8 saturating 95% -Chest x-ray suggestive of diffuse pulmonary edema-we will give Lasix 20 Mg -Continue to monitor oxygen saturation and taper down FiO2 #Cardiac: Septic shock and A. fib with RVR -Currently on amiodarone drip and heparin gtt. -Echocardiogram 01/06/2022: Normal LV size, systolic function, wall thickness and no regional wall motion abnormalities. Grade 1 diastolic dysfunction. LVEF estimated 55 to 60%. Normal RV size and systolic function with mild pulmonary hypertension RVSP 46. 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 -Currently abdominis soft with no distention-abdominal pressure 10 -Patient is on vasopressors and there is a concern for potential ischemic bowel injury-plan is to taper vasopressors as feasible -Rectal stool impaction-recommended enema -N.p.o. for now given patient is on high-dose pressors -GI prophylaxis PPI #Renal: NICOLETTE-prerenal from septic shock -Target MAP 60-65 -Monitor signs for fluid overload and BUN/creatinine/electrolytes -Albumin 2.2-given 1 dose albumin and see if intravascular volume will improve his perfusion and come off pressors -Once patient comes down on his pressors-we will give Lasix -No urgent indication for hemodialysis -Patient is mechanically ventilated for respiratory support in the event of fluid overload #Infection: cultures and blood cultures positive for staph -Identification pending -Patient currently covered with vancomycin and Zosyn -Patient had right groin wound dehiscence from recent femorofemoral graft procedure and was treated with outpatient antibiotics -Soft tissue ultrasound 01/05/2022 showed 3 x 2 subcutaneous hypoechoic irregular solid soft tissue mass in the right groin with well defining draining sinus extending to the skin surface-most likely complex abscess -Surgery consultation for Wound exploration and possible drainage-for source control Overall patient is in septic shock requiring 2 pressors with staph positive blood cultures and wound cultures-continue ventilatory support-plan is to taper down sedation and do awakening trial followed by breathing trial while monitoring for response to current antibiotics until final identification is pending. ICU CHECKLIST: Problem list updated Verbal orders reviewed and signed Analgesia: Fentanyl Glycemic Control: Low-dose insulin scale coverage Nutrition: N.p.o. for now Restraint Renewal (within 24 hrs): Yes Ulcer Prophylaxis: PPI Chemical Thromboprophylaxis: Prophylaxis: Heparin Mechanical Thromboprophylaxis: SCD Need for Central line: Yes for pressors Need for Nj catheter: Yes for UOP monitoring Code: Full Prognosis: Guarded Family: Updated Consult Attestations Medical Necessity Statement: -intubated and admitted to ICU-currently noted to be in septic shock secondary to staph bacteremia from right groin wound dehiscence Being treated with antibiotics-needs close monitoring Critical Care Time: Critical Care Time (No Overlap): 60 min This patient has a high probability of sudden, clinically significant deterioration, which requires the highest level of physician preparedness to intervene urgently. I managed/supervised life or organ supporting interventions that required frequent physician assessment. I devoted my full attention in the ICU to the direct care of this patient for the period of time indicated above. Time I spent with family or surrogate(s) is included only if the patient was incapable of providing necessary information or participating in decision making. Time devoted to teaching and to any procedures I billed separately is not included. Services Provided: Telemetry review Mechanical Ventilation Hemodynamic interpretation, assessment and management Review and interpretation of CXR Review and interpretation of lab values Review and interpretation of microbiologic data and culture results Review of medications and administration Review and interpretation of Nutrition requirements and management Discussion of management with other consultants and services Clinical update to family members Critical Care Time (min): 60 Coding Level of Care Code New Pt Acute Strawhat Sizer for Chg Fwd Patient Type New History Comprehensive Exam Comprehensive Medical Decision Making High Complexity Diagnoses Acute encephalopathy G93.40 NICOLETTE (acute kidney injury) N17.9 Septic shock A41.9; R65.21 History of endovascular stent graft for abdominal aortic aneurysm (AAA) Z95.828 History of abdominal aortic aneurysm (AAA) repair Z98.890 Peripheral arterial disease with history of revascularization I73.9; Z98.890 New onset left bundle branch block (LBBB) I44.7 Respiratory failure J96.90 Wound dehiscence T81.30XA Staphylococcus aureus bacteremia R78.81; B95.61 Time Spent (min) 60
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
[2022-01-07] VITALS (103 sets, daily range): BP systolic 75–139; BP diastolic 45–82; PULSE 70–178; RESP 15–18; TEMP 36.8–37.2; O2SAT 77–100
[2022-01-07] MEDS: amiodarone 50 mg/mL SDV 3 mL 150 MG IVP (02:30)
--- NOTE | 2022-01-07 02:38 | ECG_ITS ---
[facility] Test Date: 2022-01-07 Pat Name: Chano Cuenca Department: Room: ICU10 Gender: Male King Maker: : [id number] Requested By: Marlo Agosto Order Number: [id number] Marisela MD: Waldo Strong M.D. Measurements Intervals [place] Rate: 180 P: [place]: QRS: -38 QRSD: 135 T: 141 QT: 264 QTc: 457 Interpretive Statements ATRIAL FIBRILLATION WITH RAPID VENTRICULAR RESPONSE LEFT AXIS DEVIATION [QRS AXIS < -30] LEFT BUNDLE BRANCH BLOCK [120+ ms QRS DURATION, 80+ ms Q/S IN V1/V2, 85+ ms R IN I/aVL/V5/V6] CRITICAL TEST RESULT INTERPRETATION BASED ON A DEFAULT AGE OF 40 YEARS Compared to ECG 01/05/2022 15:20:04 Left-axis deviation now present Sinus tachycardia no longer present Electronically Signed On 01-07-2022 15:18:47 CDT by Waldo Strong M.D. [id number]
[2022-01-07 02:47] LABS: Red Blood Count 3.95 10^6/uL (4.1-5.3); White Blood Count 5.6 10^3/uL (4.0-10.0)
[2022-01-07 02:48] LABS: Hemoglobin 11.5 g/dL (11.7-16.6); Mean Corpuscular HGB Conc 32.9 g/dL (30.0-36.0); Mean Corpuscular Hemoglobin 29.1 pg (28.0-34.0); Mean Corpuscular Volume 88.6 fl (80-94); Mean Platelet Volume 11.1 fL (7.4-10.4); Platelet Count 129 10^3/cmm (130-400); Red Cell Distribution Width 13.9 % (12.1-15.1)
[2022-01-07 02:51] LABS: ABG PCO2 30.2 mmHg (35-45); ABG PH Result 7.37 (7.35-7.45); Alveolar-Arterial Oxygen Gradi 43.4 mmHg (5-10); Arterial Blood Gas Hematocrit 36.8 % (42-52); Base Excess ABG -6.7 mmol/L (-2.0-2.0); Blood Gas Allen Test Pos; Blood Gas Operator Identificat MONRO; Blood Gas Sample Site Radial, left; Blood Gas Sample Type Arterial; Blood Gas Tidal Volume 0.45; Carboxyhemoglobin 0.7 %THgb (0.4-20.1); HCO3 ABG 17.5 mmol/L (22-26); HGB O2 Sat 89.7 % (95-100); Methemoglobin 0.5 % (0.4-1.5); Oxygen Device VENT; Oxygen Saturation ABG 90.8; PO2 ABG 54.7 mmHg (80.0-100.0); Potassium Level - ABG 3.5 mmol/L (3.5-5.0)
[2022-01-07 03:03] LABS: Lactate (Lactic Acid level) 2.2 mmol/L (0.5-2.2)
[2022-01-07 03:04] LABS: Alanine Aminotransferase 21 U/L (0-41); Albumin Level 2.2 g/dL (3.5-5.2); Alkaline Phosphatase 60 IU/L (40-130); Anion Gap 18.5 (5-19); Aspartate Amino Transferase 19 U/L (0-40); Blood Urea Nitrogen 32 mg/dL (8-23); Calcium 6.9 mg/dL (8.5-10.5); Carbon Dioxide 17 mmol/L (22-29); Chloride 102 mmol/L (98-107); Globulin 3.1 g/dL (1.3-4.6); Glucose 240 mg/dL (65-115); Magnesium 1.9 mg/dL (1.7-2.3); Osmolality Calculated 293 mOsm/kg (285-295); Potassium 3.5 mmol/L (3.5-5.1); Sodium 134 mmol/L (136-145); Total Bilirubin 0.8 mg/dL (0.15-1.2); Total Protein 5.3 g/dL (6.6-8.7)
[2022-01-07 03:08] LABS: Total Cells Counted 100 (0-100)
[2022-01-07 03:09] LABS: Absolute Neutrophil 4.6 10^3/cmm (1.4-6.5); Band Neutrophils Absolute 0.7 10^3/cmm (0.0-1.2); Eosinophils 1 %; Lymphocytes 10 %; Lymphocytes Absolute 0.6 10^3/cmm (1.2-3.4); Monocytes Absolute 0.3 10^3/cmm (0.1-0.6); Platelet Estimate Decreased (Normal); Segmented Neutrophils 71 %; Toxic Vacuolation 1+
[2022-01-07 03:12] LABS: Creatine Phosphokinase 222 U/L (39-308)
[2022-01-07] MEDS: lidocaine drip 2,000 MG/500 ML PREMIX 30 MG IV (03:21)
[2022-01-07] MEDS: calcium chloride 10% Syr 10 mL 1 GM IVP (03:22)
[2022-01-07] MEDS: adenosine 3 mg/mL SDV 2mL 6 MG IVP (03:33)
[2022-01-07] MEDS: heparin drip 25,000 UNIT/500 ML PREMIX 20 UNIT IV (04:34)
--- NOTE | 2022-01-07 05:31 | P.PNCC_ITS ---
Critical Care Event Note 86-year-old male with past medical history of ?CAD, status post 5 stents (per his ) in the past, PAD with known femoropopliteal bypass occlusion, AAA, status post endovascular stent repair via bilateral femoral artery cutdown, with wound dehiscence, infection in the right groin after procedure, currently being managed for sepsis, NSTEMI type II. Overnight patient went into irregular wide-complex tachycardia with heart rate into 1160- 170s:During these episodes patient blood pressure had significant drop, in spite of a he being on Levophed as well as vasopressin.Patient continued to have pulse during the entire event.Failed synchronized cardioversion x2 asw well as one Defibrillation, Patient was started on amiodarone drip after amiodarone bolus as well as lidocaine drip. Patient also received adenosine 6 mg x 1 dose. Current EKG shows A. fib with RVR.Patient had underlying LBBB on admission was assumed to be of new onset which cleared the path for CAG, no intervention needed.Later everything has been assumed to be on sepsis. Patient was also started on heparin drip. The high probability of a clinically significant, sudden or life threatening deterioration of the patient's [] system(s) required my full and direct attention, intervention and personal management. The critical care time is as shown. This time is in addition to time spent performing any reported procedures but includes the following: [x] Data and vital sign review and interpretation [x] Patient assessment, examination and intervention [x] Documentation [x] Medication orders and management Critical Care Time Code activated: No Critical Care Time (min): 60 Coding Level of Care Code Acute Medical Support Specialist for [facility]
[2022-01-07 06:30] LABS: Platelet Count 168 10^3/cmm (130-400)
[2022-01-07] MEDS: fluoxetine 20 mg Capsule 60 MG PO (07:34)
[2022-01-07] MEDS: piperacillin-tazobactam 3.375 GM in sodium chloride 0.9% (plus) 50 ML IV ×3 (07:34→22:03)
[2022-01-07] MEDS: norepinephrine 8 MG in dextrose 5 % 500 ML 45.72 MG IV (07:42)
--- NOTE | 2022-01-07 08:03 | PC.NURSE ---
Patient in V-tach 0225. Verbal orders for medications given per Dr. Agosto. See mar for details. Patient was shocked twice at 200 joules and defibrillated once per doctors orders. Patient remained in V-tach until approx 0400. 0400 patient converted to NSR. Patients family at bedside. Bedside report given to nurse Mary Alice RN.
--- NOTE | 2022-01-07 09:31 | PC.NURSE ---
Fentanyl running at 75 mcg/hr at 0700. Decreased to 50 mcg/hr per Dr Datar's request. Unable to titrate in SEP d/t bag volume empty. Approximately 40-50 mls remaining in current bag.
[2022-01-07 09:33] LABS: ABG PCO2 36.7 mmHg (35-45); ABG PH Result 7.41 (7.35-7.45); Alveolar-Arterial Oxygen Gradi 40.9 mmHg (5-10); Base Excess ABG -1.1 mmol/L (-2.0-2.0); Blood Gas Allen Test Pos; Blood Gas Operator Identificat BD; Blood Gas Sample Site Brachial, left; Blood Gas Sample Type Arterial; Blood Gas Tidal Volume 0.45; Carboxyhemoglobin 0.9 %THgb (0.4-20.1); HCO3 ABG 23.3 mmol/L (22-26); HGB O2 Sat 93.2 % (95-100); Ionized Calcium Level - ABG 1.1 mmol/L (1.1-1.4); Methemoglobin 0.4 % (0.4-1.5); Oxygen Device VENT; Oxygen Saturation ABG 94.4; Potassium Level - ABG 3.2 mmol/L (3.5-5.0); Total Hemoglobin 12.4 g/dL (14-18)
[2022-01-07] MEDS: clopidogrel 75 mg Tablet PO (10:10)
[2022-01-07] MEDS: albumin 12.5 GM/50 ML VIAL IV ×2 (10:10→17:47)
[2022-01-07] MEDS: gabapentin 300 mg Capsule PO (10:10)
[2022-01-07] MEDS: pantoprazole 40 mg SDV IVP (10:33)
[2022-01-07] MEDS: lidocaine drip 2,000 MG/500 ML PREMIX 60 MG IV (11:19)
[2022-01-07 11:20] LABS: Partial Thromboplastin Time 83.8 SECONDS (23.9-36.7)
--- NOTE | 2022-01-07 12:55 | PC.NURSE ---
Datamichael ordered Vasopressin to be held at this time to see how pt tolerates.
--- NOTE | 2022-01-07 14:00 | PC.NURSE ---
Dr Strong requested Lidocaine be held for one hour to monitor results.
--- NOTE | 2022-01-07 14:08 | PM.PN ---
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 His cultures are growing a Staphylococcus aureus species so this is most likely the source of his sepsis. The same organism is in the blood and the wound. Patient was on both norepinephrine and vasopressin overnight. Last evening he apparently had a wide-complex irregular tachycardia that was assumed to be atrial fibrillation with a rapid rate or ventricular tachycardia. It is difficult to tell which was assumed. When he presented he was in a left bundle branch block. The patient did undergo cardioversion 3 times which did not convert him from the rhythm. He was then placed on heparin, amiodarone and lidocaine all of which he is still on. He remains on norepinephrine, midazolam and fentanyl as well. He is still intubated. The vasopressin was stopped earlier and the norepinephrine has been weaned downward. I have looked at the strips and indeed he did have atrial fibrillation intermittently overnight. Currently his heart rate is about 75 with a narrow complex rhythm and sinus as a baseline rhythm. Vitals/I&O/Wt Last Vital Signs Temp 98.7 F 01/07/22 10:15 Pulse 72 01/07/22 10:30 Resp 16 01/07/22 12:00 BP 122/78 01/07/22 10:30 Pulse Ox 96 01/07/22 12:00 01/06/22 01/07/22 01/07/22 22:59 06:59 14:59 Intake Total 1159.333 / 1463.333 363.055 / 1826.388 964.130 / 964.130 Output Total 100 / 100 750 / 850 Balance 1059.333 / 1363.333 -386.945 / 976.388 964.130 / 964.130 Weight last 48 hrs Weight 165 lb 5 oz Weight 157 lb Physical Exam Narrative: GENERAL: In general he remains intubated and sedated. HEENT: Exam within normal limits. NECK: Supple without jugular vein distention. The carotid upstroke is normal without bruits. BACK: Exam normal. LUNGS: Clear. HEART: Regular rate and rhythm. ABDOMEN: Benign without organomegaly or tenderness. EXTREMITIES: No edema. NEUROLOGIC: Not done SKIN: Unremarkable. Urinary Catheter Management: Nj: Cath Placed During This Visit: yes Reason for Continuing Indwelling Catheter: Accurate Measurement of Urinary Output in Critically Ill Patients Urinary Catheter Date of Insertion: 01/05/22 Urinary Catheter Time of Insertion: 15:20 Data : 01/07/22 05:51 01/07/22 02:40 Micro: Microbiology 01/05/22 16:05 Gram Stain - Final Groin Wound Culture - Preliminary Staphylococcus aureus 01/05/22 14:05 Blood Culture - Preliminary Blood Staphylococcus aureus 01/05/22 13:55 Blood Culture - Preliminary Blood Staphylococcus aureus 01/05/22 18:00 Gram Stain - Final Sputum - Endotracheal Tube Aspirate Sputum Culture - Preliminary A&P Assessment and plan (1) Staphylococcus aureus bacteremia: Status: Acute (2) Multiple falls: Status: Acute (3) Elevated creatine kinase: Status: Acute (4) NICOLETTE (acute kidney injury): Status: Acute (5) Septic shock: Status: Acute (6) Acute encephalopathy: Status: Acute (7) Wound dehiscence: Status: Acute (8) Respiratory failure: Status: Acute (9) Elevated troponin: Status: Acute (10) Elevated lactic acid level: Status: Acute (11) Hypertension: Status: Acute (12) Dyslipidemia: Status: Acute (13) Stented coronary artery: Status: Acute (14) CAD (coronary artery disease): Status: Acute (15) Femoral-popliteal bypass graft occlusion: Status: Acute (16) History of endovascular stent graft for abdominal aortic aneurysm (AAA): Status: Acute (17) Peripheral arterial disease with history of revascularization: Status: Acute (18) New onset left bundle branch block (LBBB): Status: Acute Plan I will discontinue the lidocaine. For now I will leave the amiodarone at 0.5 mg/min. I will discontinue the heparin and add back some Lovenox. We can continue to wean the norepinephrine as necessary. Obviously, the underlying left bundle branch block was related to the sepsis. This should resolve over time. Once he remains in sinus rhythm and maintains a narrow complex rhythm we will stop the amiodarone. I do not think we will need to continue that long-term. Attestations Medical Necessity Statement*: needs continued needs continued hospital stay for management of septic shock. Coding Level of Care Code Established Pt Acute Printed Circuit Layout Taper for Chg Fwd Patient Type Established History Comprehensive Exam Comprehensive Medical Decision Making High Complexity Diagnoses Staphylococcus aureus bacteremia R78.81; B95.61 Multiple falls R29.6 Elevated creatine kinase R74.8 NICOLETTE (acute kidney injury) N17.9 Septic shock A41.9; R65.21 Acute encephalopathy G93.40 Wound dehiscence T81.30XA Respiratory failure J96.90 Elevated troponin R77.8 Elevated lactic acid level R79.89 Hypertension I10 Dyslipidemia E78.5 Stented coronary artery Z95.5 CAD (coronary artery disease) I25.10 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 Peripheral arterial disease with history of revascularization I73.9; Z98.890 New onset left bundle branch block (LBBB) I44.7
--- NOTE | 2022-01-07 14:26 | P.PN_ITS ---
Subjective Subjective: -Patient seen at bedside -Overnight he went into again A. fib RVR-currently rate controlled with a miodarone drip/lidocaine drip and is on heparin drip -Overnight able to come down on pressor doses-Levophed 8 MCG/hour and vasopressin 0.03 -Other labs and imaging reviewed Medications: Reviewed: Yes Vitals/I&O/Wt Last Vital Signs Temp 98.7 F 01/07/22 10:15 Pulse 72 01/07/22 10:30 Resp 16 01/07/22 12:00 BP 122/78 01/07/22 10:30 Pulse Ox 96 01/07/22 12:00 01/06/22 01/07/22 01/07/22 22:59 06:59 14:59 Intake Total 1159.333 / 1463.333 363.055 / 1104.602 8317.130 / 1125.130 Output Total 100 / 100 750 / 850 Balance 1059.333 / 1363.333 -386.945 / 045.590 4766.130 / 1125.130 Weight last 48 hrs Weight 165 lb 5 oz Weight 157 lb Physical Exam Narrative: PHYSICAL EXAM: General: lying in bed, sedated and intubated. HEENT:NCAT, PERRLA, EOMI Neck: Supple Lungs: Bilateral diffuse crackles Heart: s1/s2, RRR Abd: soft, NT, ND, BS + Normoactive Extremities: No edema, warm to touch no discoloration EMPLOYEE COMMUNICATIONS INTERN: sedated and limited EMPLOYEE COMMUNICATIONS INTERN exam possible. SKIN: no rash Urinary Catheter Management: Nj: Cath Placed During This Visit: yes Reason for Continuing Indwelling Catheter: Accurate Measurement of Urinary Output in Critically Ill Patients Urinary Catheter Date of Insertion: 01/05/22 Urinary Catheter Time of Insertion: 15:20 Data : 01/07/22 05:51 01/07/22 02:40 Other Labs: Radiology Impressions Abdomen/Pelvis CT 01/05/22 13:48 IMPRESSION: 1. Air-fluid level in the stomach with gaseous distention of the stomach. Air- fluid levels in normal caliber duodenum and proximal jejunum. 2. No evidence of high-grade small or large bowel obstruction. 3. No hydronephrosis in either kidney. 4. Periaortic endograft with LEFT iliac extension. Excluded aneurysm measures 4.2 x 4.2 x 7.2 cm 5. Evidence of partially evaluated femorofemoral bypass graft. 6. Rectosigmoid constipation with distention. Diffuse distal sigmoid and rectal wall thickening with mild surrounding induration likely infectious/inflammatory or reactive. 7. Increased attenuation upper pole RIGHT renal lesion measuring 15 mm likely hemorrhagic or proteinaceous cyst. This can be followed up with ultrasound Soft Tissue Ultrasound 01/05/22 17:47 IMPRESSION: 1. Approximate 3 x 2 cm subcutaneous hypoechoic irregular solid soft tissue mass in the right groin region with well-defined draining sinus extending to the skin surface. The mass partially encases a major vessel in this region probably the common femoral artery. Most likely diagnosis is complex abscess or phlegmon. Other possibilities would include hematoma or less likely soft tissue neoplasm. Atypical pseudoaneurysm might also be a consideration. 2. No subcutaneous drainable fluid collection was demonstrated. Chest X-Ray 01/06/22 04:57 IMPRESSION: Severe pulmonary edema. Head CT 01/06/22 09:00 IMPRESSION: No radiographic evidence of acute intracranial pathology. Abdomen X-Ray 01/06/22 17:23 IMPRESSION: 1. Nasogastric tube tip is in the stomach. 2. Unremarkable bowel gas pattern. 3. Right 8th rib fracture. Laboratory Results WBC 5.6 10^3/uL (4.0-10.0) 01/07/22 02:40 RBC 3.95 10^6/uL (4.1-5.3) L 01/07/22 02:40 Hgb 11.5 g/dL (11.7-16.6) L 01/07/22 02:40 Hct 35.0 % (42.0-52.0) L 01/07/22 02:40 MCV 88.6 fl (80-94) 01/07/22 02:40 MCH 29.1 pg (28.0-34.0) 01/07/22 02:40 MCHC 32.9 g/dL (30.0-36.0) 01/07/22 02:40 RDW 13.9 % (12.1-15.1) 01/07/22 02:40 Plt Count 168 10^3/cmm (130-400) D 01/07/22 05:51 MPV 11.1 fL (7.4-10.4) H 01/07/22 02:40 Neut % (Auto) 74.5 % 01/06/22 03:29 Lymph % (Auto) Not Reportable 01/07/22 02:40 Trigg % (Auto) Not Reportable 01/07/22 02:40 Eos % (Auto) 0.1 % 01/06/22 03:29 Baso % (Auto) 0.3 % 01/06/22 03:29 Neut # (Auto) 13.66 10^3/uL (1.8-7.7) H 01/06/22 03:29 Lymph # (Auto) Not Reportable 01/07/22 02:40 Trigg # (Auto) Not Reportable 01/07/22 02:40 Eos # (Auto) 0.0 10^3/uL (0.0-0.8) 01/06/22 03:29 Baso # (Auto) 0.1 10^3/uL (0.0-0.1) 01/06/22 03:29 Nucleated RBC % (auto) 0 % 01/06/22 03:29 Total Counted 100 (0-100) 01/07/22 02:40 Atypical Lymphs % 0.0 % (0-5) 01/07/22 02:40 Absolute Neutrophils 4.6 10^3/cmm (1.4-6.5) 01/07/22 02:40 Segmented Neutrophils 71 % 01/07/22 02:40 Abs Segm Neuts (Man) 4.0 10/cmm (1.6-7.1) 01/07/22 02:40 Band Neutrophils 12.0 % 01/07/22 02:40 Abs Band Neuts (Man) 0.7 10^3/cmm (0.0-1.2) 01/07/22 02:40 Absolute Lymphocytes 0.6 10^3/cmm (1.2-3.4) L 01/07/22 02:40 Lymphocytes (Manual) 10 % 01/07/22 02:40 Monocytes (Manual) 6.0 % 01/07/22 02:40 Absolute Monocytes 0.3 10^3/cmm (0.1-0.6) 01/07/22 02:40 Eosinophils (Manual) 1 % 01/07/22 02:40 Absolute Eosinophils 0.0 10^3/cmm (0.0-0.7) 01/07/22 02:40 Basophils (Manual) 0.0 % 01/07/22 02:40 Absolute Basophils 0.0 10^3/cmm (0.0-0.2) 01/07/22 02:40 Nucleated RBCs # 0.0 /100WBC 01/06/22 03:29 Toxic Vacuolation 1+ H 01/07/22 02:40 Platelet Estimate Decreased (Normal) 01/07/22 02:40 PT 16.20 SECONDS (12.1-14.9) H 01/05/22 13:55 INR 1.27 (0.8-1.2) H 01/05/22 13:55 APTT 83.8 SECONDS (23.9-36.7) H D 01/07/22 10:25 D-Dimer 5.23 ug/mIFEU (0-0.59) H 01/05/22 13:55 Specimen Type Arterial 01/07/22 02:37 Sample Site Radial, left 01/07/22 02:37 ABG pH 7.37 (7.35-7.45) 01/07/22 02:37 ABG pCO2 30.2 mmHg (35-45) L 01/07/22 02:37 ABG pO2 54.7 mmHg (80.0-100.0) L 01/07/22 02:37 ABG HCO3 17.5 mmol/L (22-26) L 01/07/22 02:37 ABG O2 Saturation 90.8 01/07/22 02:37 ABG Base Excess -6.7 mmol/L (-2.0-2.0) L 01/07/22 02:37 Maik Test Pos 01/07/22 02:37 A-a O2 Gradient 43.4 mmHg (5-10) H 01/07/22 02:37 Hematocrit 36.8 % (42-52) L 01/07/22 02:37 Hgb O2 Saturation 89.7 % (95-100) L 01/07/22 02:37 Carboxyhemoglobin 0.7 %THgb (0.4-20.1) 01/07/22 02:37 Methemoglobin 0.5 % (0.4-1.5) 01/07/22 02:37 Total Hemoglobin 12.0 g/dL (14-18) L 01/07/22 02:37 Sodium 136.0 mmol/L (131-143) 01/07/22 02:37 Potassium 3.5 mmol/L (3.5-5.0) 01/07/22 02:37 Glucose 243.0 mg/dL (70-115) H 01/07/22 02:37 Ionized Calcium 1.0 mmol/L (1.1-1.4) L 01/07/22 02:37 O2 Delivery Device Vent 01/07/22 02:37 O2 Liters/Min 5.0 % 01/05/22 14:25 FiO2 60.0 % 01/07/22 02:37 Tidal Volume 0.45 01/07/22 02:37 PEEP 8.0 cmH20 01/07/22 02:37 Jet Inspector ID [place] 01/07/22 02:37 Sodium 134 mmol/L (136-145) L 01/07/22 02:40 Potassium 3.5 mmol/L (3.5-5.1) 01/07/22 02:40 Chloride 102 mmol/L (98-107) 01/07/22 02:40 Carbon Dioxide 17 mmol/L (22-29) L 01/07/22 02:40 Anion Gap 18.5 (5-19) 01/07/22 02:40 BUN 32 mg/dL (8-23) H 01/07/22 02:40 Creatinine 1.6 mg/dL (0.7-1.2) H 01/07/22 02:40 GFR Calculation Not Reportable 01/07/22 02:40 Glucose 240 mg/dL (65-115) H 01/07/22 02:40 Calculated Osmolality 293 mOsm/kg (285-295) 01/07/22 02:40 Lactic Acid 4.8 mmol/L (0.5-2.2) H* 01/06/22 18:15 Lactic Acid (Sepsis) 1.4 mmol/L (0.5-2.2) 01/06/22 21:46 Lactate 2.2 mmol/L (0.5-2.2) 01/07/22 02:41 Calcium 6.9 mg/dL (8.5-10.5) L 01/07/22 02:40 Magnesium 1.9 mg/dL (1.7-2.3) 01/07/22 02:40 Total Bilirubin 0.8 mg/dL (0.15-1.2) 01/07/22 02:40 AST 19 U/L (0-40) 01/07/22 02:40 ALT 21 U/L (0-41) 01/07/22 02:40 Alkaline Phosphatase 60 IU/L (40-130) 01/07/22 02:40 Creatine Kinase 222 U/L (39-308) 01/07/22 02:41 CK-MB (CK-2) 5.5 ng/mL (0-10.4) 01/05/22 13:55 CK-MB (CK-2) Rel Index % (0.0-5.3) 01/05/22 13:55 Troponin T Baseline 137 ng/L (0-15) H* 01/05/22 13:55 Troponin T 120 Minute 186.6 ng/L (0-15) H 01/05/22 16:05 Delta Troponin T 49.6 ABS# (0-10) H* 01/05/22 16:05 Troponin T Hi Sens 6Hr 272.4 ng/L (0-15) H 01/05/22 20:56 Troponin T Hi Sens 6Hr Delta 135.4 ng/L (0-12) H* 01/05/22 20:56 Total Protein 5.3 g/dL (6.6-8.7) L 01/07/22 02:40 Albumin 2.2 g/dL (3.5-5.2) L 01/07/22 02:40 Globulin 3.1 g/dL (1.3-4.6) 01/07/22 02:40 Lipase 7 U/L (13-60) L 01/05/22 13:55 Urine Color Yellow (Yellow) 01/05/22 16:05 Urine Appearance Clear (CLEAR) 01/05/22 16:05 Urine pH 5 (5-7) 01/05/22 16:05 Ur Specific [place] 1.010 (1.005-1.030) 01/05/22 16:05 Urine Protein Trace (Negative) 01/05/22 16:05 Urine Glucose (UA) Norm (Normal) 01/05/22 16:05 Urine Ketones Negative (Negative) 01/05/22 16:05 Urine Blood 3+ (Negative) H 01/05/22 16:05 Urine Nitrate Negative (Negative) 01/05/22 16:05 Urine Bilirubin Neg (Negative) 01/05/22 16:05 Urine Urobilinogen Norm mg/dL (Negative) 01/05/22 16:05 Ur Leukocyte Esterase Negative (Negative) 01/05/22 16:05 Urine RBC 0-4 /hpf (0-2) H 01/05/22 16:05 Urine WBC 0-4 /hpf (0-5) H 01/05/22 16:05 Ur Squamous Epith Cells 0-4 /hpf (0-5) H 01/05/22 16:05 Amorphous Sediment 2+ /hpf 01/05/22 16:05 Urine Bacteria Trace /hpf (NONE) 01/05/22 16:05 Serum Ketones Negative (Negative) 01/05/22 13:55 Coronavirus 229E (PCR) Not detected (NOT DETECT) 01/05/22 19:20 SARS-CoV-2 (PCR) Not detected (NOT DETECT) 01/05/22 19:20 Micro: Microbiology 01/05/22 18:00 Gram Stain - Final Sputum - Endotracheal Tube Aspirate Sputum Culture - Final 01/05/22 16:05 Gram Stain - Final Groin Wound Culture - Preliminary Staphylococcus aureus 01/05/22 14:05 Blood Culture - Preliminary Blood Staphylococcus aureus 01/05/22 13:55 Blood Culture - Preliminary Blood Staphylococcus aureus A&P Assessment and plan (1) Acute encephalopathy: Status: Acute (2) NICOLETTE (acute kidney injury): Status: Acute (3) Septic shock: Status: Acute (4) History of endovascular stent graft for abdominal aortic aneurysm (AAA): Status: Acute (5) History of abdominal aortic aneurysm (AAA) repair: Status: Acute (6) Peripheral arterial disease with history of revascularization: Status: Acute (7) New onset left bundle branch block (LBBB): Status: Acute (8) Respiratory failure: Status: Acute (9) Wound dehiscence: Status: Acute (10) Staphylococcus aureus bacteremia: Status: Acute Plan 86-year-old male with past medical history of CAD, s/p 5 stents per in the past, PAD with known femoropopliteal bypass occlusion, AAA, s/p endovascular stent repair via bilateral femoral artery cutdown On 09/09/2021-later complicated with wound Dehiscence in the right groin treated with 6 weeks antibiotics- presented to emergency room for confusion and respiratory failure-intubated and admitted to ICU-currently noted to be in septic shock secondary to staph bacteremia from right groin wound dehiscence. #EMPLOYEE COMMUNICATIONS INTERN:Acute confusion-secondary to septic encephalopathy -Currently being treated with antibiotics for staph bacteremia -Currently on sedation with fentanyl and Versed 6 Mg -Recommended to taper down fentanyl and turn off Versed -We will do awakening trial #Pulm:On mechanical ventilator for hypoxic respiratory failure secondary to fluid overload -Intubated 01/05/2022:-Currently on CMV 450/16/50 %/8 saturating 95% -ABG 7.3 7/30/50/17/90% saturation -Chest x-ray suggestive of diffuse pulmonary edema-we will give Lasix 20 Mg -Continue to monitor oxygen saturation and taper down FiO2 #Cardiac: Septic shock and A. fib with rate controlled -Currently on amiodarone drip, lidocaine drip and heparin gtt. -Echocardiogram 01/06/2022: Normal LV size, systolic function, wall thickness and no regional wall motion abnormalities. Grade 1 diastolic dysfunction. LVEF estimated 55 to 60%. Normal RV size and systolic function with mild pulmonary hypertension RVSP 46. -Bedside ultrasound examination showed collapsing IVC -Cardiac cath on admission did not show any significant CAD -Currently on Plavix 75, -Appreciate cardiology recommendations -For septic shock-currently patient is coming down on pressor requirements- currently Levophed 8 MCG and vasopressin 0.03-recommended to turn off vasopre ssin and titrate down Levophed with target MAP 65 -Albumin 2.2-received 1 dose albumin yesterday-recommended 3 doses of albumin every 8 hour #Severe PAD-check bilateral lower extremity pulses -Currently both legs are warm with no discoloration #GI: for celiac artery occlusion -CT angio abdomen pelvis [facility] at [facility] on 08/31/2021- 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 -Currently abdominal soft with no distention-abdominal pressure 10 -Patient is on vasopressors and there is a concern for potential ischemic bowel injury-plan is to taper vasopressors as feasible -Once patient comes on low-dose pressors-we will start trickle feeding -GI prophylaxis PPI #Renal: NICOLETTE-prerenal from septic shock -Target MAP 60-65 -Patient made 850 cc urine last 24 hours-closely monitor input output -Creatinine 1.6-normal electrolytes, With bicarb 17-lactic acid normalized --Albumin 2.2-received 1 dose albumin yesterday-recommended 3 doses of albumin every 8 hour and see if intravascular volume will improve his perfusion and come off pressors -Once patient comes down on his pressors-we will give Lasix -No urgent indication for hemodialysis -Monitor signs for fluid overload and BUN/creatinine/electrolytes -Patient is mechanically ventilated for respiratory support in the event of fluid overload #Infection: cultures and blood cultures positive for staph -Wound cultures-show ampicillin/penicillin resistant staph aureus-sensitive to Oxacillin and Zosyn; blood culture staph already has-identification pending -recommended to continue vancomycin and Zosyn until blood culture identification is available -Patient had right groin wound dehiscence from recent femorofemoral graft procedure and was treated with outpatient antibiotics -Soft tissue ultrasound 01/05/2022 showed 3 x 2 subcutaneous hypoechoic irregular solid soft tissue mass in the right groin with well defining draining sinus extending to the skin surface-most likely complex abscess -Surgery consultation for Wound exploration and possible drainage-for source control Overall patient is in staph bacteremia and septic shock from infected right groin wound-currently requiring 2 pressors but decreasing in requirements with antibiotics on board-we will continue hemodynamic and ventilatory support-plan is to taper down sedation and do awakening trial followed by breathing trial. We will closely monitor renal functions for prerenal NICOLETTE secondary to septic shock-no urgent need for hemodialysis at this point of time. We will continue to monitor. Surgery to investigate infected wound for source control and give the recommendations. ICU CHECKLIST: Problem list updated Verbal orders reviewed and signed Analgesia: Fentanyl Glycemic Control: Low-dose insulin scale coverage Nutrition: N.p.o. for now Restraint Renewal (within 24 hrs): Yes Ulcer Prophylaxis: PPI Chemical Thromboprophylaxis: Prophylaxis: Heparin Mechanical Thromboprophylaxis: SCD Need for Central line: Yes for pressors Need for Nj catheter: Yes for UOP monitoring Code: Full Prognosis: Guarded Family: Updated Attestations Medical Necessity Statement*: -intubated and admitted to ICU-currently noted to be in septic shock secondary to staph bacteremia from right groin wound dehiscence Being treated with antibiotics-needs close monitoring Critical Care Time: Critical Care Time (No Overlap): 45 min This patient has a high probability of sudden, clinically significant deterioration, which requires the highest level of physician preparedness to intervene urgently.? I managed/supervised life or organ supporting interventions that required frequent physician assessment.? I devoted my full attention in the ICU to the direct care of this patient for the period of time indicated above.? Time I spent with family or surrogate(s) is included only if the patient was incapable of providing necessary information or participating in decision making.? Time devoted to teaching and to any procedures I billed separately is not included. Services Provided: Telemetry review Mechanical Ventilation Hemodynamic interpretation, assessment and management Review and interpretation of CXR Review and interpretation of lab values Review and interpretation of microbiologic data and culture results Review of medications and administration Review and interpretation of Nutrition requirements and management Discussion of management with other consultants and services Clinical update to family members Critical Care Time (min): 45 Coding Level of Care Code Established Pt Acute [facility] Fwd Patient Type Established History Comprehensive Exam Comprehensive Medical Decision Making High Complexity Diagnoses Acute encephalopathy G93.40 NICOLETTE (acute kidney injury) N17.9 Septic shock A41.9; R65.21 History of endovascular stent graft for abdominal aortic aneurysm (AAA) Z95.828 History of abdominal aortic aneurysm (AAA) repair Z98.890 Peripheral arterial disease with history of revascularization I73.9; Z98.890 New onset left bundle branch block (LBBB) I44.7 Respiratory failure J96.90 Wound dehiscence T81.30XA Staphylococcus aureus bacteremia R78.81; B95.61 Time Spent (min) 45
[2022-01-07 15:08] LABS: Glucose Point of Care 315 mg/dL (70-110)
[2022-01-07] MEDS: enoxaparin 80 mg/0.8 mL Syringe 70 MG SUBCUT (15:46)
[2022-01-07] MEDS: insulin lispro 100 unit/1 mL 10 UNIT SUBCUT (15:54)
[2022-01-07] MEDS: vancomycin 750 MG in sodium chloride 0.9% 250 ML 250 MG IV (17:59)
--- NOTE | 2022-01-07 18:45 | PC.NURSE ---
One time insulin administered per order. mortgage protection sales nurse to recheck 1800 blood glucose again at a later time to monitor initial administration effect. 1800 sliding scale coverage may be administered late. Dr Crenshaw aware of plan.
[2022-01-07] MEDS: FUROsemide 10 mg/mL SDV 4mL 20 MG IVP (18:48)
[2022-01-07 19:39] LABS: Glucose Point of Care 233 mg/dL (70-110)
[2022-01-07] MEDS: norepinephrine 8 MG in dextrose 5 % 500 ML 38.1 MG IV (20:14)
[2022-01-07 20:48] LABS: Glucose Point of Care 204 mg/dL (70-110)
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
[2022-01-08] VITALS (52 sets, daily range): BP systolic 87–134; BP diastolic 54–73; PULSE 71–140; RESP 16–25; TEMP 36.6; O2SAT 91–97
[2022-01-08] MEDS: albumin 12.5 GM/50 ML VIAL IV (00:33)
[2022-01-08] MEDS: enoxaparin 80 mg/0.8 mL Syringe 70 MG SUBCUT ×2 (02:21→14:36)
[2022-01-08 05:59] LABS: Basophils % 0.2 %; Eosinophils # 0.1 10^3/uL (0.0-0.8); Eosinophils % 0.4 %; Hematocrit 30.3 % (42.0-52.0); Hemoglobin 10.2 g/dL (11.7-16.6); Lymphocytes # 0.8 10^3/uL (0.8-4.8); Lymphocytes % 6.7 %; Mean Corpuscular HGB Conc 33.7 g/dL (30.0-36.0); Mean Corpuscular Hemoglobin 29.6 pg (28.0-34.0); Mean Corpuscular Volume 87.8 fl (80-94); Mean Platelet Volume 11.5 fL (7.4-10.4); Neutrophils # 10.31 10^3/uL (1.8-7.7); Nucleated Red Blood Cells % 0 %; Platelet Count 166 10^3/cmm (130-400); Red Blood Count 3.45 10^6/uL (4.1-5.3); White Blood Count 12.3 10^3/uL (4.0-10.0)
[2022-01-08] MEDS: piperacillin-tazobactam 3.375 GM in sodium chloride 0.9% (plus) 50 ML IV ×2 (06:00→14:36)
[2022-01-08] MEDS: fluoxetine 20 mg Capsule 60 MG PO (06:00)
[2022-01-08 06:26] LABS: Alanine Aminotransferase 15 U/L (0-41); Albumin Level 2.7 g/dL (3.5-5.2); Alkaline Phosphatase 83 IU/L (40-130); Aspartate Amino Transferase 12 U/L (0-40); Blood Urea Nitrogen 24 mg/dL (8-23); Calcium 7.8 mg/dL (8.5-10.5); Carbon Dioxide 23 mmol/L (22-29); Chloride 101 mmol/L (98-107); Globulin 2.8 g/dL (1.3-4.6); Glucose 176 mg/dL (65-115); Magnesium 1.8 mg/dL (1.7-2.3); Osmolality Calculated 288 mOsm/kg (285-295); Sodium 135 mmol/L (136-145); Total Bilirubin 0.8 mg/dL (0.15-1.2); Total Protein 5.5 g/dL (6.6-8.7)
[2022-01-08 07:51] LABS: Glucose Point of Care 208 mg/dL (70-110)
[2022-01-08] MEDS: lidocaine 1% 5 ML in potassium chloride premix 100 ML 25 ML IV ×2 (08:06→12:47)
[2022-01-08] MEDS: insulin lispro 100 unit/1 mL SUBCUT ×2 (08:14→11:16)
--- NOTE | 2022-01-08 08:31 | PM.PN ---
Subjective Subjective: [place] is basically unchanged. No further wide-complex tachycardia. He remains on intravenous amiodarone. Remains intubated. Other drips include fentanyl, midazolam, norepinephrine. Blood pressure this morning is 115/60. Heart rate is 79. The left bundle branch block has resolved. He now has a narrow complex rhythm. No further atrial fibrillation. Vitals/I&O/Wt Last Vital Signs Temp 97.8 F 01/08/22 06:30 Pulse 79 01/08/22 06:30 Resp 17 01/08/22 08:12 BP 115/60 01/08/22 06:30 Pulse Ox 96 01/08/22 08:12 01/07/22 01/08/22 01/08/22 22:59 06:59 14:59 Intake Total 577.33 / 2089.139 667.230 / 2756.369 Output Total 1400 / 1400 800 / 2200 Balance -822.67 / 689.139 -132.770 / 556.369 Weight last 48 hrs Weight 163 lb 5 oz Weight 165 lb 5 oz Physical Exam Narrative: GENERAL: In general he is intubated and sedated HEENT: Exam within normal limits. NECK: Supple without jugular vein distention. The carotid upstroke is normal without bruits. BACK: Exam normal. LUNGS: Clear. HEART: Regular rate and rhythm. ABDOMEN: Benign without organomegaly or tenderness. EXTREMITIES: No edema. NEUROLOGIC: Exam not done. SKIN: Unremarkable. Urinary Catheter Management: Nj: Cath Placed During This Visit: yes Reason for Continuing Indwelling Catheter: Accurate Measurement of Urinary Output in Critically Ill Patients Urinary Catheter Date of Insertion: 01/05/22 Urinary Catheter Time of Insertion: 15:20 Data : 01/08/22 04:40 01/08/22 04:40 Micro: Microbiology 01/05/22 18:00 Gram Stain - Final Sputum - Endotracheal Tube Aspirate Sputum Culture - Final 01/05/22 16:05 Gram Stain - Final Groin Wound Culture - Preliminary Staphylococcus aureus A&P Assessment and plan (1) Paroxysmal atrial fibrillation with RVR: Status: Acute (2) Staphylococcus aureus bacteremia: Status: Acute (3) Multiple falls: Status: Acute (4) Elevated creatine kinase: Status: Acute (5) NICOLETTE (acute kidney injury): Status: Acute (6) Septic shock: Status: Acute (7) Acute encephalopathy: Status: Acute (8) Wound dehiscence: Status: Acute (9) Elevated troponin: Status: Acute (10) Elevated lactic acid level: Status: Acute (11) Hypertension: Status: Acute (12) Dyslipidemia: Status: Acute (13) Stented coronary artery: Status: Acute (14) CAD (coronary artery disease): Status: Acute (15) Femoral-popliteal bypass graft occlusion: Status: Acute (16) History of endovascular stent graft for abdominal aortic aneurysm (AAA): Status: Acute Plan Leave the amiodarone IV until things settle down and he is able to get off the ventilator. Fortunately, his rhythm is stable and there is no more left bundle branch block or wide-complex tachycardia. Attestations Medical Necessity Statement*: Continued ICU management of sepsis. Coding Level of Care Code Established Pt Acute Manufacturing Quality Technician for Bernieg Fwd Patient Type Established History Detailed Exam Detailed Medical Decision Making Moderate Complexity Diagnoses Paroxysmal atrial fibrillation with RVR I48.0 Staphylococcus aureus bacteremia R78.81; B95.61 Multiple falls R29.6 Elevated creatine kinase R74.8 NICOLETTE (acute kidney injury) N17.9 Septic shock A41.9; R65.21 Acute encephalopathy G93.40 Wound dehiscence T81.30XA Elevated troponin R77.8 Elevated lactic acid level R79.89 Hypertension I10 Dyslipidemia E78.5 Stented coronary artery Z95.5 CAD (coronary artery disease) I25.10 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
[2022-01-08] MEDS: potassium chloride ER 20 mEq Tablet 40 MEQ PO (09:44)
[2022-01-08] MEDS: clopidogrel 75 mg Tablet PO (09:44)
[2022-01-08] MEDS: pantoprazole 40 mg SDV IVP (09:44)
[2022-01-08] MEDS: gabapentin 300 mg Capsule PO (09:44)
[2022-01-08] MEDS: polyethylene glycol 3350 Pkt 17 gm OG-TUBE (09:44)
--- NOTE | 2022-01-08 10:28 | PC.CHAP ---
Pastoral Care Encounter/Spiritual Assessment Type of Contact [] Declined pet feeder visit [] Patient/Family/Request visit [] Outpatient visit [] Follow-up visit [] Physician referral [] Code/Alert [x] Routine visit [] Staff referral [] Actively dying [x] Patient sleeping [] Family support [] [] Out of room [] Palliative care [] [] Receiving care in room [] Pre-surgical visit [] Trauma [] Long length of stay [x] ICU visit [x] Other: vent Relational/Emotional Strength [] Patient feels connected with others/family/visitors/staff [] Distress [] Loneliness/isolation [] Abandonment Spirituality of Patient [] Person of Padmini [] Attends Pentecostalism of their Padmini [] Believes in Prayer [] Reads Bible or Taoism materials [] There are Spiritual issues to be addressed Elevator Constructor Interventions [x] Prayer [] Active listening [] Non-anxious presence [] Spiritual/emotional support [] Crisis/trauma care [] Spiritual counseling [] Bereavement support [] Provided bereavement packet [] Provided Bible/devotional materials [] Provided toy/stuffed animal, coloring book to patient or family member [] Provided Communion [] Anointing/[place] [] Salvation [x] Completed spiritual assessment [] Other: Impact on Illness or Injury [] Angry [] Fearful [] Anxious [] Often cries [] Exhaustion [] Unable to work [] Unable to attend shinto [] Unable to walk/stand [] Unable to read [] Unable to drive [] Unable to eat/drink [] Unable to sleep [] Unable to be with family [] Patient intubated [] Other: Summary Time spent with patient
[2022-01-08 11:07] LABS: Glucose Point of Care 161 mg/dL (70-110)
[2022-01-08 12:38] LABS: Glucose Point of Care 102 mg/dL (70-110)
[2022-01-08 12:46] LABS: Adenovirus Not Detected (NOT DETECT); Chlamydia Pneumoniae Not Detected (NOT DETECT); Coronavirus 229E,HKU1,NL63,OC4 Not Detected (NOT DETECT); Human Metapneumovirus Not Detected (NOT DETECT); Human Rhinovirus/Enterovirus Not Detected (NOT DETECT); Influenza A Not Detected (NOT DETECT); Influenza A H1 Not Detected (NOT DETECT); Influenza A H1-2009 Not Detected (NOT DETECT); Influenza A H3 Not Detected (NOT DETECT); Influenza B Not Detected (NOT DETECT); Mycoplasma Pneumoniae Not Detected (NOT DETECT); Parainfluenza Virus Type 1 Not Detected (NOT DETECT); Parainfluenza Virus Type 2 Not Detected (NOT DETECT); Parainfluenza Virus Type 3 Not Detected (NOT DETECT); Parainfluenza Virus Type 4 Not Detected (NOT DETECT); Respiratory Syncytial Virus A Not Detected (NOT DETECT); Respiratory Syncytial Virus B Not Detected (NOT DETECT); SARS-COV-2 Not Detected (NOT DETECT)
[2022-01-08] MEDS: metoprolol tartrate 1 mg/1 mL SDV 5 mL 2.5 MG IVP (12:47)
--- NOTE | 2022-01-08 14:44 | PC.NURSE ---
for transfer to [facility] report given for transfer per ambulance had episode of afib with rbbb given bolus of ammiodarone converted back to sr monitor vs at this time notified
--- NOTE | 2022-01-08 15:54 | PC.SOCIAL ---
IMM Not given Pt is intubated. plans to transfer pt to a higher level of care facility. IMM not given. Pt is not expected to d/c w/n the next 24-48hrs.
--- NOTE | 2022-01-08 16:07 | P.TS_ITS ---
Transfer Summary Providers Date of Admission: 01/05/22 18:04 Date of Discharge/Transfer: 01/08/22 Attending Provider at Admission: Waldo Strong MD Attending Provider at Transfer: Ar Crenshaw Transfer Plans: Anticipated date of transfer: 01/08/22 . Diagnoses at Discharge Discharge Diagnosis (1) Paroxysmal atrial fibrillation with RVR: Status: Acute (2) Staphylococcus aureus bacteremia: Status: Acute (3) Multiple falls: Status: Acute (4) Elevated creatine kinase: Status: Acute (5) NICOLETTE (acute kidney injury): Status: Acute (6) Septic shock: Status: Acute (7) Acute encephalopathy: Status: Acute (8) Wound dehiscence: Status: Acute (9) Elevated troponin: Status: Acute (10) Elevated lactic acid level: Status: Acute (11) Hypertension: Status: Acute (12) Dyslipidemia: Status: Acute (13) Stented coronary artery: Status: Acute (14) CAD (coronary artery disease): Status: Acute (15) Femoral-popliteal bypass graft occlusion: Status: Acute (16) History of endovascular stent graft for abdominal aortic aneurysm (AAA): Status: Acute Reason for Visit Reason for Visit FALL, GROIN INCISION OPEN HX STENT, FEVER Hospital Course Hospital Course 86-year-old gentleman with history of coronary and peripheral arterial disease, history of PCI (per family 5 stents in the past), PAD, past femorofemoral bypass with known occlusion, AAA, s/p endovascular stent repair via bilateral femoral artery cutdown in September at [facility]. CT angiogram abdomen pelvis [facility] 08/31/2021 reported interval occlusion of femorofemoral bypass, severe calcified stenosis of proximal right common iliac artery and moderate calcified stenosis of proximal left common iliac artery. Aneurysmal dilation of infrarenal abdominal aorta which measures 4.9 cm compared to 3.8 on 10/10/1999 2020. 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 On 09/09/2021 patient underwent ultrasound-guided bilateral femoral sticks with angiogram of aortobilateral iliac arteries, angiogram of femoral to femoral graft, bilateral femoral cutdowns, aortic unilateral iliac repair of abdominal aortic aneurysm with 2 grafts, left iliac extension, cutdown femoral-femoral graft with a combination of Suzan thrombectomy and open thrombectomy-there was a complication postprocedure with perforation of the right common iliac artery and patient lost 750 cc plus another 2 to 3 units intraperitoneal bleeding from the perforation. Findings of the procedure were the femorofemoral graft was clotted and the large fibrin plug on the left side that required open graftotomy and open thrombectomy. Right groin hematoma is required evacuation. Subseq uently with drain in place. Subsequently reported by family also wound dehiscence, poor healing, infection for which was treated 6 weeks with antibiotics. Was brought to the hospital for evaluation after at home was found to be confused, night before admission he had fallen down, found confused, confusion did not improve in the morning, generally weak. A week prior he had also had additional fall outside on some rocks with persistent flank pain afterward. Son reported incomprehensible speech persisting on the morning of admission. In ER noted to be confused, restless, febrile, with leukocytosis 15.7, with hypoxia requiring 5 L oxygen with saturation in high 80s. As he appeared to be in respiratory distress he was intubated and started on ventilatory support. Lactic acidosis 4.1. NICOLETTE, creatinine 1.4. COVID-[address] abdomen pelvis showed gastric distention with air-fluid level and normal caliber duodenum and proximal jejunum with no evidence of high-grade small or large bowel obstruction.Aortic endograft with left iliac extension-excluded aneurysm measuring 4.2 x 4.2 x 7.2 cm partially evaluated femorofemoral bypass with surgical occlusion of right common iliac, atrophic left kidney. 15 mm renal lesion on right likely hemorrhagic or proteinaceous cyst. Distal rectal and sigmoid thickening with mild surrounding induration likely infectious or inflammatory or reactive. Rectosigmoid constipation and distention. Blood cultures were sent and patient was started on Zosyn, vancomycin, started on sepsis protocol with 30 cc/kg fluid resuscitation. Possibility of CVA could not entirely be excluded, although encephalopathy likely secondary to sepsis, and was not a candidate for intervention. Mild transient anisocoria but only shortly after intubation, likely related to paralytic agents. CT of the head unremarkable. Pupils remain symmetrical. He intermittently is waking up, but becomes restless, and sedation is continued. Initial EKG showed new left bundle branch block compared to Muse EKG-troponin elevated 137, CK elevated 2000 789-assessed by cardiology on patient underwent coronary angiography which did not reveal any significant coronary lesions. Minor in-stent restenosis of RCA noted. Overnight on 01/07 also with noted tachycardia 160s-170s, worse hypotension, paroxysmal atrial fibrillation with RVR, had DC cardioversion x3, unsuccessful, transiently on lidocaine drip, continues on amiodarone drip currently, off which she hopefully may be [facility] physician back to his home metoprolol once blood pressures allow. Currently in sinus rhythm with atrial fibrillation and LBBB resolved. Was transiently on heparin drip anticoagulation, currently continues on Lovenox therapeutic dose, although may not be a good candidate for long-term anticoagulation given multiple falls. With worsening septic shock required pressors, with increased pressor demand up to 30mcg/min Levophed, as well as vasopressin. Continued on antibiotic treat ment, cultures growing MSSA in blood and from cultures collected from small wound dehiscence spot in the right groin with serous drainage. Oxygenation initially worse, requiring up to 60% FiO2 support. With pulmonary edema appearance on chest x-ray. Cannot exclude possible aspiration pneumonia as well. Echocardiogram with EF 55-60%, grade 1 diastolic dysfunction. Possibly mild pulmonary hypertension, RVSP 46.5 mmHg. Moderate tricuspid regurgitation. He responded well to albumin infusions and Lasix, with FiO2 requirement decreasing down to 35%. Overall condition gradually improving, weaning down on pressor requirement, currently down to 6 mcg/min Levophed, off vasopressin. Lactic acidosis with fluctuation, transiently with consideration of possible global GI hypoperfusion given known PAD, celiac trunk narrowing, although bladder pressures not elevated, and lactic acidosis now resolved. CK elevation resolved. Extremities remaining perfused, with dopplerable left DP and right PT (displaced posteroinferiorly due to prior fractures, surgeries) pulses. NICOLETTE appears to be with minor improvement, creatinine down to 1.3. Producing urine. Right groin ultrasound of dehisced wound revealed 3 x 2 cm subcutaneous hypoechoic irregular solid soft tissue mass in the right groin region with well- defined draining sinus extending to the skin surface. Mass partially encases a major vessel and there is region probably the common femoral artery. Most likely diagnosis is complex abscess or phlegmon. Atypical pseudoaneurysm might also be a consideration. Other possibilities would include hematoma or less likely soft tissue neoplasm. As he is now more stable for additional exploration, and as right groin hypoechoic mass is likely source of infection of his sepsis, we are further s eeking additional assessment by vascular surgery for which he was kindly accepted over at [facility] in [place]. No beds available at a number of hospitals including [place] where he usually gets his care. Received enema for constipation, although still no bowel movement. Will need escalation of bowel regimen, given chronic pain he is on chronic opioids with hydromorphone 4 mg every 6 hours as needed. Was n.p.o. for now due to concerns of bowel perfusion, now with improving condition was being started on trickle feed. With acute kidney injury, gastric distention, possible gastritis or PUD, he also cannot be excluded, and with cardiac history would preferably not continue NSAIDs. Physical Exam Const: GENERAL APPEARANCE: patient mechanically ventilated OTHER: Intubated, sedated HENMT: COMMON NORMALS: normocephalic, EAC's normal, Normal external nose present and moist oral mucous membranes HEAD & SCALP: normocephalic NOSE: Normal external nose present EXTERNAL AUDITORY CANAL: EAC's normal Eye: OTHER: Pupils equal Chest: CHEST: Yes Symmetrical chest wall rise OTHER: Bruising over L side chest Resp: COMMON NORMALS: clear to auscultation bilaterally AUSCULTATION: clear to auscultation bilaterally Cardio: COMMON NORMALS: regular rate, regular rhythm and No murmurs present (Cardio) RATE: regular rate RHYTHM: regular rhythm GI: COMMON NORMALS: Normal to inspection, nondistended, normoactive bowel sounds present and Soft to palpation PALPATION: Yes Soft to palpation Extremity: COMMON NORMALS: no pedal edema OTHER: R ankle prior surgical scars, old localized swelling R medial ankle Extremities warm. Psych: OTHER: Sedated Skin: RASHES: no rashes WOUNDS: Yes wounds noted (R groin 1cm, deep wound after dehisc, no eryth, serous drainage) Urinary Catheter Management: Nj: Cath Placed During This Visit: yes Reason for Continuing Indwelling Catheter: Accurate Measurement of Urinary Output in Critically Ill Patients Urinary Catheter Date of Insertion: 01/05/22 Urinary Catheter Time of Insertion: 15:20 TS Data Studies Completed and Pending Pending at discharge Category Date Time Status Blood Culture Stat Lab 01/08/22 10:18 Results Complete Blood Count w/Auto AM LABS Lab 01/09/22 04:00 Ordered Complete Blood Count w/Auto AM LABS Lab 01/10/22 04:00 Ordered Complete Blood Count w/Auto AM LABS Lab 01/11/22 04:00 Ordered Comprehensive Metabolic Panel AM LABS Lab 01/09/22 04:00 Ordered Comprehensive Metabolic Panel AM LABS Lab 01/10/22 04:00 Ordered Comprehensive Metabolic Panel AM LABS Lab 01/11/22 04:00 Ordered Labs from last 24 hours 01/08/22 01/08/22 01/08/22 Unknown Unknown 12:35 WBC RBC Hgb Hct MCV MCH MCHC RDW Plt Count MPV Neut % (Auto) Lymph % (Auto) [place] % (Auto) Eos % (Auto) Baso % (Auto) Neut # (Auto) Lymph # (Auto) [place] # (Auto) Eos # (Auto) Baso # (Auto) Nucleated RBC % (auto) Nucleated RBCs # Sodium Potassium Chloride Carbon Dioxide Anion Gap BUN Creatinine GFR Calculation Glucose POC Glucose 102 Calculated Osmolality Calcium Magnesium Total Bilirubin AST ALT Alkaline Phosphatase Total Protein Albumin Globulin Coronavirus 229E (PCR) Not detected SARS-CoV-2 (PCR) Not detected SARS-CoV-2 Ag (Rapid) Cancelled 01/08/22 01/08/22 01/08/22 11:04 07:32 04:40 WBC RBC Hgb Hct MCV MCH MCHC RDW Plt Count MPV Neut % (Auto) Lymph % (Auto) [place] % (Auto) Eos % (Auto) Baso % (Auto) Neut # (Auto) Lymph # (Auto) [place] # (Auto) Eos # (Auto) Baso # (Auto) Nucleated RBC % (auto) Nucleated RBCs # Sodium 135 L Potassium 3.0 L Chloride 101 Carbon Dioxide 23 Anion Gap 14.0 BUN 24 H Creatinine 1.3 H GFR Calculation Not Reportable Glucose 176 H POC Glucose 161 H 208 H Calculated Osmolality 288 Calcium 7.8 L Magnesium 1.8 Total Bilirubin 0.8 AST 12 ALT 15 Alkaline Phosphatase 83 Total Protein 5.5 L Albumin 2.7 L Globulin 2.8 Coronavirus 229E (PCR) SARS-CoV-2 (PCR) SARS-CoV-2 Ag (Rapid) 01/08/22 01/07/22 01/07/22 04:40 20:46 18:47 WBC 12.3 H RBC 3.45 L Hgb 10.2 L Hct 30.3 L MCV 87.8 MCH 29.6 MCHC 33.7 RDW 14.0 Plt Count 166 MPV 11.5 H Neut % (Auto) 84.0 Lymph % (Auto) 6.7 [place] % (Auto) 8.0 Eos % (Auto) 0.4 Baso % (Auto) 0.2 Neut # (Auto) 10.31 H Lymph # (Auto) 0.8 [place] # (Auto) 1.0 H Eos # (Auto) 0.1 Baso # (Auto) 0.0 Nucleated RBC % (auto) 0 Nucleated RBCs # 0.0 Sodium Potassium Chloride Carbon Dioxide Anion Gap BUN Creatinine GFR Calculation Glucose POC Glucose 204 H 233 H Calculated Osmolality Calcium Magnesium Total Bilirubin AST ALT Alkaline Phosphatase Total Protein Albumin Globulin Coronavirus 229E (PCR) SARS-CoV-2 (PCR) SARS-CoV-2 Ag (Rapid) Completed Studies During Hospitalization Category Date Time Status CT abdomen pelvis wo con [id number] Stat Cat Scan 01/05/22 13:[address] head wo con* [id number] Routine Cat Scan 01/06/22 09:00 Completed EXCHANGE SPECIALIST request for service Stat Exams 01/05/22 16:20 Completed XR abdomen 1V* [id number] Routine Exams 01/06/22 17:23 Completed XR chest 1V portable [id number] Stat Exams 01/05/22 13:49 Completed XR chest 1V portable [id number] Stat Exams 01/06/22 04:57 Completed CV carotid duplex BI* [id number] Routine Ultrasound 01/05/22 18:19 Completed CV. echo complete* [id number] Routine Ultrasound 01/06/22 06:19 Completed US soft tissue/extremity [id number] Routine Ultrasound 01/05/22 17:47 Completed Laboratory Last Values WBC 12.3 10^3/uL (4.0-10.0) H 01/08/22 04:40 RBC 3.45 10^6/uL (4.1-5.3) L 01/08/22 04:40 Hgb 10.2 g/dL (11.7-16.6) L 01/08/22 04:40 Hct 30.3 % (42.0-52.0) L 01/08/22 04:40 MCV 87.8 fl (80-94) 01/08/22 04:40 MCH 29.6 pg (28.0-34.0) 01/08/22 04:40 MCHC 33.7 g/dL (30.0-36.0) 01/08/22 04:40 RDW 14.0 % (12.1-15.1) 01/08/22 04:40 Plt Count 166 10^3/cmm (130-400) 01/08/22 04:40 MPV 11.5 fL (7.4-10.4) H 01/08/22 04:40 Neut % (Auto) 84.0 % 01/08/22 04:40 Lymph % (Auto) 6.7 % 01/08/22 04:40 [place] % (Auto) 8.0 % 01/08/22 04:40 Eos % (Auto) 0.4 % 01/08/22 04:40 Baso % (Auto) 0.2 % 01/08/22 04:40 Neut # (Auto) 10.31 10^3/uL (1.8-7.7) H 01/08/22 04:40 Lymph # (Auto) 0.8 10^3/uL (0.8-4.8) 01/08/22 04:40 [place] # (Auto) 1.0 10^3/uL (0.2-0.9) H 01/08/22 04:40 Eos # (Auto) 0.1 10^3/uL (0.0-0.8) 01/08/22 04:40 Baso # (Auto) 0.0 10^3/uL (0.0-0.1) 01/08/22 04:40 Nucleated RBC % (auto) 0 % 01/08/22 04:40 Total Counted 100 (0-100) 01/07/22 02:40 Atypical Lymphs % 0.0 % (0-5) 01/07/22 02:40 Absolute Neutrophils 4.6 10^3/cmm (1.4-6.5) 01/07/22 02:40 Segmented Neutrophils 71 % 01/07/22 02:40 Abs Segm Neuts (Man) 4.0 10/cmm (1.6-7.1) 01/07/22 02:40 Band Neutrophils 12.0 % 01/07/22 02:40 Abs Band Neuts (Man) 0.7 10^3/cmm (0.0-1.2) 01/07/22 02:40 Absolute Lymphocytes 0.6 10^3/cmm (1.2-3.4) L 01/07/22 02:40 Lymphocytes (Manual) 10 % 01/07/22 02:40 Monocytes (Manual) 6.0 % 01/07/22 02:40 Absolute Monocytes 0.3 10^3/cmm (0.1-0.6) 01/07/22 02:40 Eosinophils (Manual) 1 % 01/07/22 02:40 Absolute Eosinophils 0.0 10^3/cmm (0.0-0.7) 01/07/22 02:40 Basophils (Manual) 0.0 % 01/07/22 02:40 Absolute Basophils 0.0 10^3/cmm (0.0-0.2) 01/07/22 02:40 Nucleated RBCs # 0.0 /100WBC 01/08/22 04:40 Toxic Vacuolation 1+ H 01/07/22 02:40 Platelet Estimate Decreased (Normal) 01/07/22 02:40 PT 16.20 SECONDS (12.1-14.9) H 01/05/22 13:55 INR 1.27 (0.8-1.2) H 01/05/22 13:55 APTT 83.8 SECONDS (23.9-36.7) H D 01/07/22 10:25 D-Dimer 5.23 ug/mIFEU (0-0.59) H 01/05/22 13:55 Specimen Type Arterial 01/07/22 02:37 Sample Site Radial, left 01/07/22 02:37 ABG pH 7.37 (7.35-7.45) 01/07/22 02:37 ABG pCO2 30.2 mmHg (35-45) L 01/07/22 02:37 ABG pO2 54.7 mmHg (80.0-100.0) L 01/07/22 02:37 ABG HCO3 17.5 mmol/L (22-26) L 01/07/22 02:37 ABG O2 Saturation 90.8 01/07/22 02:37 ABG Base Excess -6.7 mmol/L (-2.0-2.0) L 01/07/22 02:37 Maik Test Pos 01/07/22 02:37 A-a O2 Gradient 43.4 mmHg (5-10) H 01/07/22 02:37 Hematocrit 36.8 % (42-52) L 01/07/22 02:37 Hgb O2 Saturation 89.7 % (95-100) L 01/07/22 02:37 Carboxyhemoglobin 0.7 %THgb (0.4-20.1) 01/07/22 02:37 Methemoglobin 0.5 % (0.4-1.5) 01/07/22 02:37 Total Hemoglobin 12.0 g/dL (14-18) L 01/07/22 02:37 Sodium 136.0 mmol/L (131-143) 01/07/22 02:37 Potassium 3.5 mmol/L (3.5-5.0) 01/07/22 02:37 Glucose 243.0 mg/dL (70-115) H 01/07/22 02:37 Ionized Calcium 1.0 mmol/L (1.1-1.4) L 01/07/22 02:37 O2 Delivery Device Vent 01/07/22 02:37 O2 Liters/Min 5.0 % 01/05/22 14:25 FiO2 60.0 % 01/07/22 02:37 Tidal Volume 0.45 01/07/22 02:37 PEEP 8.0 cmH20 01/07/22 02:37 Coordinator Integrated [employer] ID Monro 01/07/22 02:37 Sodium 135 mmol/L (136-145) L 01/08/22 04:40 Potassium 3.0 mmol/L (3.5-5.1) L 01/08/22 04:40 Chloride 101 mmol/L (98-107) 01/08/22 04:40 Carbon Dioxide 23 mmol/L (22-29) 01/08/22 04:40 Anion Gap 14.0 (5-19) 01/08/22 04:40 BUN 24 mg/dL (8-23) H 01/08/22 04:40 Creatinine 1.3 mg/dL (0.7-1.2) H 01/08/22 04:40 GFR Calculation Not Reportable 01/08/22 04:40 Glucose 176 mg/dL (65-115) H 01/08/22 04:40 POC Glucose 102 mg/dL (70-110) 01/08/22 12:35 Calculated Osmolality 288 mOsm/kg (285-295) 01/08/22 04:40 Lactic Acid 4.8 mmol/L (0.5-2.2) H* 01/06/22 18:15 Lactic Acid (Sepsis) 1.4 mmol/L (0.5-2.2) 01/06/22 21:46 Lactate 2.2 mmol/L (0.5-2.2) 01/07/22 02:41 Calcium 7.8 mg/dL (8.5-10.5) L 01/08/22 04:40 Magnesium 1.8 mg/dL (1.7-2.3) 01/08/22 04:40 Total Bilirubin 0.8 mg/dL (0.15-1.2) 01/08/22 04:40 AST 12 U/L (0-40) 01/08/22 04:40 ALT 15 U/L (0-41) 01/08/22 04:40 Alkaline Phosphatase 83 IU/L (40-130) 01/08/22 04:40 Creatine Kinase 222 U/L (39-308) 01/07/22 02:41 CK-MB (CK-2) 5.5 ng/mL (0-10.4) 01/05/22 13:55 CK-MB (CK-2) Rel Index % (0.0-5.3) 01/05/22 13:55 Troponin T Baseline 137 ng/L (0-15) H* 01/05/22 13:55 Troponin T 120 Minute 186.6 ng/L (0-15) H 01/05/22 16:05 Delta Troponin T 49.6 ABS# (0-10) H* 01/05/22 16:05 Troponin T Hi Sens 6Hr 272.4 ng/L (0-15) H 01/05/22 20:56 Troponin T Hi Sens 6Hr Delta 135.4 ng/L (0-12) H* 01/05/22 20:56 Total Protein 5.5 g/dL (6.6-8.7) L 01/08/22 04:40 Albumin 2.7 g/dL (3.5-5.2) L 01/08/22 04:40 Globulin 2.8 g/dL (1.3-4.6) 01/08/22 04:40 Lipase 7 U/L (13-60) L 01/05/22 13:55 Urine Color Yellow (Yellow) 01/05/22 16:05 Urine Appearance Clear (CLEAR) 01/05/22 16:05 Urine pH 5 (5-7) 01/05/22 16:05 Ur Specific Wallace 1.010 (1.005-1.030) 01/05/22 16:05 Urine Protein Trace (Negative) 01/05/22 16:05 Urine Glucose (UA) Norm (Normal) 01/05/22 16:05 Urine Ketones Negative (Negative) 01/05/22 16:05 Urine Blood 3+ (Negative) H 01/05/22 16:05 Urine Nitrate Negative (Negative) 01/05/22 16:05 Urine Bilirubin Neg (Negative) 01/05/22 16:05 Urine Urobilinogen Norm mg/dL (Negative) 01/05/22 16:05 Ur Leukocyte Esterase Negative (Negative) 01/05/22 16:05 Urine RBC 0-4 /hpf (0-2) H 01/05/22 16:05 Urine WBC 0-4 /hpf (0-5) H 01/05/22 16:05 Ur Squamous Epith Cells 0-4 /hpf (0-5) H 01/05/22 16:05 Amorphous Sediment 2+ /hpf 01/05/22 16:05 Urine Bacteria Trace /hpf (NONE) 01/05/22 16:05 Serum Ketones Negative (Negative) 01/05/22 13:55 Coronavirus 229E (PCR) Not detected (NOT DETECT) 01/08/22 Unknown SARS-CoV-2 (PCR) Not detected (NOT DETECT) 01/08/22 Unknown SARS-CoV-2 Ag (Rapid) Cancelled 01/08/22 Unknown Radiology Impressions Abdomen/Pelvis CT 01/05/22 13:48 IMPRESSION: 1. Air-fluid level in the stomach with gaseous distention of the stomach. Air- fluid levels in normal caliber duodenum and proximal jejunum. 2. No evidence of high-grade small or large bowel obstruction. 3. No hydronephrosis in either kidney. 4. Periaortic endograft with LEFT iliac extension. Excluded aneurysm measures 4.2 x 4.2 x 7.2 cm 5. Evidence of partially evaluated femorofemoral bypass graft. 6. Rectosigmoid constipation with distention. Diffuse distal sigmoid and rectal wall thickening with mild surrounding induration likely infectious/inflammatory or reactive. 7. Increased attenuation upper pole RIGHT renal lesion measuring 15 mm likely hemorrhagic or proteinaceous cyst. This can be followed up with ultrasound Soft Tissue Ultrasound 01/05/22 17:47 IMPRESSION: 1. Approximate 3 x 2 cm subcutaneous hypoechoic irregular solid soft tissue mass in the right groin region with well-defined draining sinus extending to the skin surface. The mass partially encases a major vessel in this region probably the common femoral artery. Most likely diagnosis is complex abscess or phlegmon. Other possibilities would include hematoma or less likely soft tissue neoplasm. Atypical pseudoaneurysm might also be a consideration. 2. No subcutaneous drainable fluid collection was demonstrated. Chest X-Ray 01/06/22 04:57 IMPRESSION: Severe pulmonary edema. Head CT 01/06/22 09:00 IMPRESSION: No radiographic evidence of acute intracranial pathology. Abdomen X-Ray 01/06/22 17:23 IMPRESSION: 1. Nasogastric tube tip is in the stomach. 2. Unremarkable bowel gas pattern. 3. Right 8th rib fracture. Recent Clincial Data Last Vital Signs Temp 97.8 F 01/08/22 06:30 Pulse 96 01/08/22 12:00 Resp 16 01/08/22 13:48 BP 134/70 01/08/22 12:00 Pulse Ox 95 01/08/22 13:48 Vital Signs Temp Pulse Resp BP Pulse Ox 01/08/22 13:48 16 95 01/08/22 12:00 96 134/70 92 01/08/22 11:30 88 124/73 94 01/08/22 11:17 20 H 96 01/08/22 11:00 87 122/66 94 01/08/22 10:30 80 106/61 95 01/08/22 10:00 81 107/60 95 01/08/22 09:30 80 104/60 94 01/08/22 09:00 82 108/60 94 01/08/22 08:30 78 105/58 95 01/08/22 08:12 17 96 01/08/22 08:00 77 109/59 96 01/08/22 07:30 77 100/57 96 01/08/22 07:00 77 116/62 94 01/08/22 06:30 97.8 F 79 115/60 94 01/08/22 06:15 80 112/60 93 01/08/22 06:11 25 H 95 01/08/22 06:00 74 112/60 96 01/08/22 05:45 73 113/59 96 06/10/22 05:30 73 110/61 96 01/08/22 05:15 73 112/60 96 01/08/22 05:00 72 104/57 95 01/08/22 04:45 75 107/58 94 01/08/22 04:30 77 110/64 93 01/08/22 04:15 81 114/67 91 Intake & Output/Weight 01/06/22 01/07/22 01/08/22 01/09/22 06:59 06:59 06:59 06:59 Intake Total 4735.420 / 4735.420 2076.388 / 2076.388 2756.369 / 2756.369 50 / 50 Output Total 375 / 375 850 / 850 2200 / 2200 Balance 4360.420 / 4360.420 1226.388 / 1226.388 556.369 / 556.369 50 / 50 Weight 71.214 kg 74.984 kg 74.077 kg Vitals Last Vital Signs Temp 97.8 F 01/08/22 06:30 Pulse 96 01/08/22 12:00 Resp 16 01/08/22 13:48 BP 134/70 01/08/22 12:00 Pulse Ox 95 01/08/22 13:48 TS Medications Medications Acetaminophen (Acetaminophen 325 Mg Tablet) 650 mg PO Q6H PRN PRN Reason: Mild/Mod Pain Or Temp >/= 101 Last Admin: 01/05/22 22:28 Dose: 650 mg Documented by: Clopidogrel Bisulfate (Clopidogrel 75 Mg Tablet) 75 mg PO DAILY [facility] Last Admin: 01/08/22 09:44 Dose: 75 mg Documented by: Dextrose (Dextrose 50% Syringe 50 Ml) 25 ml IVP ONCE PRN; Protocol PRN Reason: hypoglycemia protocol Dextrose (Dextrose 50% Syringe 50 Ml) 50 ml IVP PRN PRN; Protocol PRN Reason: hypoglycemia protocol Enoxaparin Sodium (Enoxaparin 80 Mg/0.8 Ml Syringe) 70 mg SUBCUT Q12H [facility] Last Admin: 01/08/22 14:36 Dose: 70 mg Documented by: Fluoxetine HCl (Fluoxetine 20 Mg Capsule) 60 mg PO QAM [facility] Last Admin: 01/08/22 06:00 Dose: 60 mg Documented by: Gabapentin (Gabapentin 300 Mg Capsule) 300 mg PO DAILY [facility] Last Admin: 01/08/22 09:44 Dose: 300 mg Documented by: Glucagon (Glucagon 1 Mg/Ml Inj 1 Ml) 1 mg IM ONCE PRN; Protocol PRN Reason: Adult Acute Hypoglycemia Prot. Heparin Sodium (Porcine) (Heparin 5,000 Unit/Ml Inj 1 Ml) 0 unit IV PRN PRN; Protocol PRN Reason: Heparin weight-base protocol Midazolam HCl 100 mg/ Sodium (Chloride) 100 mls @ 0 mls/hr IV .Q0M DEANDRE; Protocol Last Titration: 01/07/22 13:00 Dose: Infused Documented by: Fentanyl 2,500 mcg/ Sodium (Chloride) 250 mls @ 0 mls/hr IV .Q0M DEANDRE; Protocol Last Titration: 01/07/22 14:31 Dose: 20 mcg/hr, 2 mls/hr Documented by: Piperacillin Sod/Tazobactam (Sod 3.375 gm/ Sodium Chloride) 50 mls @ 12.5 mls/hr IV Q8H DEANDRE; Protocol Last Admin: 01/08/22 14:36 Dose: 12.5 mls/hr Documented by: Vancomycin HCl 750 mg/ Sodium (Chloride) 250 mls @ 250 mls/hr IV Q24H DEANDRE Last Infusion: 01/07/22 20:17 Dose: Infused Documented by: Norepinephrine Bitartrate 8 mg (/ Dextrose) 508 mls @ 0 mls/hr IV .Q0M DEANDRE; Protocol Last Titration: 01/08/22 06:48 Dose: 2 mcg/min, 7.62 mls/hr Documented by: Vasopressin 40 unit/ Sodium (Chloride) 40 mls @ 0.03 mls/min IV CONT [facility] Last Admin: 01/07/22 20:17 Dose: Not Given Documented by: Amiodarone HCl 900 mg/Dextrose/ IV Miscellaneous Supplies 518 mls @ 0 mls/hr IV .Q0M DEANDRE; Protocol Last Admin: 01/08/22 05:59 Dose: 0.5 mg/min, 17.27 mls/hr Documented by: Dextrose (D5w) 500 mls @ 100 mls/hr IV ONCE PRN; Protocol PRN Reason: Adult Acute Hypoglycemia Prot Lidocaine HCl 5 ml/ Potassium (Chloride) 105 mls @ 25 mls/hr IV ONCE ONE Stop: 01/08/22 16:48 Last Admin: 01/08/22 12:47 Dose: 25 mls/hr Documented by: Insulin Human Lispro (Insulin Lispro 100 Unit/1 Ml) 0 unit SUBCUT TIDWM [facility]; Protocol Last Admin: 01/08/22 11:16 Dose: 2 unit Documented by: Non-Formulary Medication (Naloxegol [Movantik]) 12.5 mg PO DAILY [facility] Last Admin: 01/08/22 09:43 Dose: Not Given Documented by: Pantoprazole Sodium (Pantoprazole 40 Mg Sdv) 40 mg IVP DAILY [facility] Last Admin: 01/08/22 09:44 Dose: 40 mg Documented by: Polyethylene Glycol (Polyethylene Glycol 3350 Pkt 17 Gm) 17 gm OG-TUBE BID [facility] Last Admin: 01/08/22 09:44 Dose: 17 gm Documented by: Discontinued Medications Adenosine (Adenosine 3 Mg/Ml Sdv 2ml) 6 mg IVP ONCE ONE Stop: 01/07/22 07:49 Last Admin: 01/07/22 03:33 Dose: 6 mg Documented by: Amiodarone HCl (Amiodarone 50 Mg/Ml Sdv 3 Ml) 150 mg IVP ONCE ONE Stop: 01/07/22 07:49 Last Admin: 01/07/22 02:30 Dose: 150 mg Documented by: Calcium Chloride (Calcium Chloride 10% Syr 10 Ml) 1 gm IVP ONCE ONE Stop: 01/07/22 03:23 Last Admin: 01/07/22 03:22 Dose: 1 gm Documented by: Enoxaparin Sodium (Enoxaparin 40 Mg/0.4 Ml Syringe) 40 mg SUBCUT Q24H [facility] Last Admin: 01/06/22 16:52 Dose: 40 mg Documented by: Etomidate (Etomidate 2 Mg/Ml Inj) 30 mg IVP NOW ONE Stop: 01/05/22 15:02 Last Admin: 01/05/22 15:11 Dose: 30 mg Documented by: Furosemide (Furosemide 10 Mg/Ml Sdv 4ml) 20 mg IVP ONCE ONE Stop: 01/07/22 18:31 Last Admin: 01/07/22 18:48 Dose: 20 mg Documented by: Heparin Sodium (Porcine) (Heparin 5,000 Unit/Ml Inj 1 Ml) Confirm Administered Dose 5,000 unit .ROUTE .STK-MED ONE Stop: 01/05/22 16:13 Heparin Sodium (Porcine) (Heparin 5,000 Unit/Ml Inj 1 Ml) Confirm Administered Dose 5,000 unit .ROUTE .STK-MED ONE Stop: 01/05/22 16:55 Sodium Chloride (Sodium Chloride 0.9%) 1,000 mls @ 999 mls/hr IV .Q1H1M ONE Stop: 01/05/22 14:48 Last Infusion: 01/05/22 15:33 Dose: Infused Documented by: Vancomycin HCl 1,000 mg/ (Sodium Chloride) 250 mls @ 250 mls/hr IV ONCE ONE; Protocol Stop: 01/05/22 14:58 Last Infusion: 01/05/22 19:45 Dose: Infused Documented by: Piperacillin Sod/Tazobactam (Sod 3.375 gm/ Sodium Chloride) 50 mls @ 100 mls/hr IV ONCE ONE; Protocol Stop: 01/05/22 14:28 Last Infusion: 01/05/22 15:02 Dose: Infused Documented by: Sodium Chloride (Sodium Chloride 0.9%) 2,136.42 mls @ 2,136.42 mls/hr 30 ml/kg infuse over 1 hr (2136.42 ml) IV .Q1H ONE Stop: 01/05/22 16:15 Last Infusion: 01/05/22 19:45 Dose: Infused Documented by: Levofloxacin/Dextrose (Levaquin-D5w) 750 mg in 150 mls @ 100 mls/hr IV ONCE ONE; Protocol Stop: 01/05/22 16:46 Last Infusion: 01/05/22 19:45 Dose: Infused Documented by: Lidocaine HCl (Lidocaine 1%) Confirm Administered Dose 1 mls @ as directed .ROUTE .STK-MED ONE Stop: 01/05/22 16:14 Norepinephrine Bitartrate 4 mg (/ Dextrose) 254 mls @ 0 mls/hr IV .Q0M [facility]; Protocol Last Titration: 01/06/22 16:42 Dose: Infused Documented by: Sodium Chloride (Sodium Chloride 0.9%) 500 mls @ 999 mls/hr IV .Q31M ONE Stop: 01/05/22 22:48 Last Infusion: 01/05/22 23:48 Dose: Infused Documented by: Sodium Chloride (Sodium Chloride 0.9%) 1,000 mls @ 100 mls/hr IV .Q10H [facility] Stop: 01/06/22 18:29 Last Admin: 01/05/22 22:34 Dose: 100 mls/hr Documented by: Lidocaine HCl 5 ml/ Potassium (Chloride) 105 mls @ 50 mls/hr IV ONCE ONE Stop: 01/06/22 07:21 Last Admin: 01/06/22 05:32 Dose: 50 mls/hr Documented by: Vasopressin 100 unit/ Sodium (Chloride) 100 mls @ 0 mls/hr IV .Q0M [facility]; Protocol Last Admin: 01/06/22 09:51 Dose: 0.01 unit/min, 0.6 mls/hr Documented by: Albumin Human (Albumin) 12.5 gm in 50 mls @ 60 mls/hr IV ONCE ONE Stop: 01/06/22 19:49 Last Admin: 01/06/22 18:39 Dose: 60 mls/hr Documented by: Lidocaine HCl/Dextrose (Lidocaine Drip) 2,000 mg in 500 mls @ 30 mls/hr IV .[id number] [facility] Last Infusion: 01/07/22 14:00 Dose: 0 mg/min, 0 mls/hr Documented by: Heparin Sodium/Sodium Chloride (Heparin Drip) 25,000 unit in 500 mls @ 0 mls/hr IV .Q0M [facility]; Protocol Last Titration: 01/07/22 14:32 Dose: 0 unit/kg/hr, 0 mls/hr Documented by: Albumin Human (Albumin) 12.5 gm in 50 mls @ 60 mls/hr IV Q8H [facility] Stop: 01/08/22 02:19 Last Infusion: 01/08/22 02:21 Dose: Infused Documented by: Sodium Chloride (Sodium Chloride 0.9% (100 Ml)) Confirm Administered Dose 100 mls @ as directed .ROUTE .STK-MED ONE Stop: 01/07/22 17:58 Last Admin: 01/07/22 18:53 Dose: Not Given Documented by: Lidocaine HCl 5 ml/ Potassium (Chloride) 105 mls @ 25 mls/hr IV ONCE ONE Stop: 01/08/22 10:57 Last Admin: 01/08/22 08:06 Dose: 25 mls/hr Documented by: Magnesium Sulfate 1 gm/ Sodium (Chloride) 52 mls @ 104 mls/hr IV ONCE ONE Stop: 01/08/22 13:06 Last Admin: 01/08/22 13:16 Dose: 104 mls/hr Documented by: Amiodarone HCl 150 mg/Dextrose/ IV Miscellaneous Supplies 103 mls @ 412 mls/hr IV ONCE ONE Stop: 01/08/22 14:00 Last Admin: 01/08/22 14:14 Dose: 412 mls/hr Documented by: Insulin Human Lispro (Insulin Lispro 100 Unit/1 Ml) 10 unit SUBCUT NOW ONE Stop: 01/07/22 15:41 Last Admin: 01/07/22 15:54 Dose: 10 unit Documented by: Lorazepam (Lorazepam 2 Mg/Ml Inj 1 Ml) 2 mg IVP NOW ONE Stop: 01/05/22 14:37 Last Admin: 01/05/22 14:47 Dose: 2 mg Documented by: Methylnaltrexone Lind (Methylnaltrexone 12 /0.6 Ml Inj) 12 mg SUBCUT ONCE ONE Stop: 01/05/22 18:31 Last Admin: 01/05/22 18:52 Dose: 12 mg Documented by: Metoprolol Tartrate (Metoprolol Tartrate 1 Mg/1 Ml Sdv 5 Ml) 2.5 mg IVP ONCE ONE Stop: 01/08/22 12:36 Last Admin: 01/08/22 12:47 Dose: 2.5 mg Documented by: Nitroglycerin (Nitroglycerin 5 Mg/Ml Sdv 10 Ml) Confirm Administered Dose 50 mg .ROUTE .STK-MED ONE Stop: 01/05/22 16:13 Ondansetron HCl (Ondansetron 2 Mg/Ml Sdv 2 Ml) 4 mg IVP ONCE ONE Stop: 01/05/22 13:49 Last Admin: 01/05/22 14:33 Dose: 4 mg Documented by: Pantoprazole Sodium (Pantoprazole Dr 40 Mg Tablet) 40 mg PO DAILY [facility] Last Admin: 01/07/22 10:13 Dose: Not Given Documented by: Potassium Chloride (Potassium Chloride Er 20 Meq Tablet) 40 meq PO ONCE ONE Stop: 01/08/22 08:35 Last Admin: 01/08/22 09:44 Dose: 40 meq Documented by: Succinylcholine Chloride (Succinylcholine 20 Mg/Ml Sdv 10ml) 90 mg IVP NOW ONE Stop: 01/05/22 15:03 Last Admin: 01/05/22 15:11 Dose: 90 mg Documented by: Vecuronium Lind (Vecuronium 10 Mg Sdv) 10 mg IVP ONCE ONE Stop: 01/05/22 15:35 Last Admin: 01/05/22 15:40 Dose: 10 mg Documented by: Allergies diphenhydramine [From Benadryl] Allergy (Severe, Verified 01/05/22 14:29) pt states makes him go crazy Home Medications cefdinir 300 mg capsule See Rx Instructions .ROUTE .COMPLEX 01/05/22 [History Confirmed 01/05/22] clopidogrel 75 mg tablet 75 mg PO DAILY 01/05/22 [History Confirmed 01/05/22] diclofenac sodium 1 % topical gel 2 g TOPICAL Q6H PRN 01/05/22 [History Confirmed 01/05/22] ergocalciferol (vitamin D2) 1,250 mcg (50,000 unit) capsule (Vitamin D2) 50,000 unit PO Q7D 01/05/22 [History Confirmed 01/05/22] fluoxetine 20 mg capsule 60 mg PO QAM 01/05/22 [History Confirmed 01/05/22] gabapentin 300 mg capsule 300 mg PO TID 01/05/22 [History Confirmed 01/05/22] hydrochlorothiazide 25 mg tablet 25 mg PO DAILY 01/05/22 [History Confirmed 01/05/22] hydromorphone 4 mg tablet 4 mg PO Q6H PRN 01/05/22 [History Confirmed 01/05/22] lisinopril 20 mg tablet 20 mg PO DAILY 01/05/22 [History Confirmed 01/05/22] metoprolol succinate 25 mg tablet,extended release 24 hr 25 mg PO BID 01/05/22 [History Confirmed 01/05/22] naloxegol 12.5 mg tablet (Movantik) 12.5 mg PO DAILY 01/05/22 [History Confirmed 01/05/22] nitroglycerin 2.5 mg capsule,extended release (Nitro-Time) 5 mg PO BID 01/05/22 [History Confirmed 01/05/22] pantoprazole 40 mg tablet,delayed release 40 mg PO DAILY 01/05/22 [History Confirmed 01/05/22] zolpidem 10 mg tablet 10 mg PO BEDTIME 01/05/22 [History Confirmed 01/05/22] Discharge Plan Discharge Patient Disposition: Xfer Short-Term Hosp Condition: Stable Prescriptions: No Action lisinopril 20 mg tablet 20 mg PO DAILY 0RF clopidogrel 75 mg tablet 75 mg PO DAILY 0RF pantoprazole 40 mg tablet,delayed release (DR/EC) 40 mg PO DAILY 0RF gabapentin 300 mg capsule 300 mg PO TID 0RF hydrochlorothiazide 25 mg tablet 25 mg PO DAILY 0RF metoprolol succinate 25 mg tablet extended release 24 hr 25 mg PO BID 0RF Vitamin D2 1,250 mcg (50,000 unit) capsule 50,000 unit PO Q7D 0RF Rx Instructions: on tuesday zolpidem 10 mg tablet 10 mg PO BEDTIME 0RF hydromorphone 4 mg tablet 4 mg PO Q6H PRN (Reason: Pain) 0RF cefdinir 300 mg capsule See Rx Instructions .ROUTE .COMPLEX 0RF Rx Instructions: take as directed diclofenac sodium 1 % gel 2 g TOPICAL Q6H PRN (Reason: Pain) 0RF Movantik 12.5 mg tablet 12.5 mg PO DAILY 0RF fluoxetine 20 mg capsule 60 mg PO QAM 0RF Nitro-Time 2.5 mg Capsule, Extended Release 5 mg PO BID 0RF Referrals: Roseann Contreras MD [Physician] - Transfer Attestations Time Spent in Transfer Care: greater than 30 min Quality Metrics Clinical Quality Measures [ No reported AMI, CVA or VTE this stay] Coding Level of Care Code Acute [employer] for [employer] Diagnoses Paroxysmal atrial fibrillation with RVR I48.0 Staphylococcus aureus bacteremia R78.81; B95.61 Multiple falls R29.6 Elevated creatine kinase R74.8 NICOLETTE (acute kidney injury) N17.9 Septic shock A41.9; R65.21 Acute encephalopathy G93.40 Wound dehiscence T81.30XA Elevated troponin R77.8 Elevated lactic acid level R79.89 Hypertension I10 Dyslipidemia E78.5 Stented coronary artery Z95.5 CAD (coronary artery disease) I25.10 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
--- NOTE | 2022-01-08 16:22 | PM.PN ---
Subjective Subjective: - Patient was seen at bedside -Still on Versed 1 Mg and fentanyl-recommended to discontinue Versed -Responding to antibiotics and currently Levophed down to 3 MCG/hour and off vasopressin -We will start trickle feeding -Patient will be transferred for additional assessment by vascular surgery for which he was kindly accepted over at [facility] in [place].? -Other labs and imaging reviewed Medications: Reviewed: Yes Vitals/I&O/Wt Last Vital Signs Temp 97.8 F 01/08/22 06:30 Pulse 72 01/08/22 16:00 Resp 16 01/08/22 13:48 BP 102/60 01/08/22 16:00 Pulse Ox 96 01/08/22 16:00 01/08/22 01/08/22 01/08/22 06:59 14:59 22:59 Intake Total 667.230 / 2756.369 50 / 50 51.333 / 101.333 Output Total 800 / 2200 Balance -132.770 / 556.369 50 / 50 51.333 / 101.333 Weight last 48 hrs Weight 163 lb 5 oz Weight 165 lb 5 oz Physical Exam Narrative: PHYSICAL EXAM: General: lying in bed, sedated and intubated. HEENT:NCAT, PERRLA, EOMI Neck: Supple Lungs: Bilateral diffuse crackles Heart: s1/s2, RRR Abd: soft, NT, ND, BS + Normoactive Extremities: No edema, warm to touch no discoloration PHARMACEUTICAL DEVELOPMENT TECHNICIAN: sedated and limited PHARMACEUTICAL DEVELOPMENT TECHNICIAN exam possible. SKIN: no rash Urinary Catheter Management: Nj: Cath Placed During This Visit: yes Reason for Continuing Indwelling Catheter: Accurate Measurement of Urinary Output in Critically Ill Patients Urinary Catheter Date of Insertion: 01/05/22 Urinary Catheter Time of Insertion: 15:20 Data : 01/08/22 04:40 01/08/22 04:40 Other Labs: Radiology Impressions Abdomen/Pelvis CT 01/05/22 13:48 IMPRESSION: 1. Air-fluid level in the stomach with gaseous distention of the stomach. Air-fluid levels in normal caliber duodenum and proximal jejunum. 2. No evidence of high-grade small or large bowel obstruction. 3. No hydronephrosis in either kidney. 4. Periaortic endograft with LEFT iliac extension. Excluded aneurysm measures 4.2 x 4.2 x 7.2 cm 5. Evidence of partially evaluated femorofemoral bypass graft. 6. Rectosigmoid constipation with distention. Diffuse distal sigmoid and rectal wall thickening with mild surrounding induration likely infectious/inflammatory or reactive. 7. Increased attenuation upper pole RIGHT renal lesion measuring 15 mm likely hemorrhagic or proteinaceous cyst. This can be followed up with ultrasound Soft Tissue Ultrasound 01/05/22 17:47 IMPRESSION: 1. Approximate 3 x 2 cm subcutaneous hypoechoic irregular solid soft tissue mass in the right groin region with well-defined draining sinus extending to the skin surface. The mass partially encases a major vessel in this region probably the common femoral artery. Most likely diagnosis is complex abscess or phlegmon. Other possibilities would include hematoma or less likely soft tissue neoplasm. Atypical pseudoaneurysm might also be a consideration. 2. No subcutaneous drainable fluid collection was demonstrated. Chest X-Ray 01/06/22 04:57 IMPRESSION: Severe pulmonary edema. Head CT 01/06/22 09:00 IMPRESSION: No radiographic evidence of acute intracranial pathology. Abdomen X-Ray 01/06/22 17:23 IMPRESSION: 1. Nasogastric tube tip is in the stomach. 2. Unremarkable bowel gas pattern. 3. Right 8th rib fracture. Laboratory Results WBC 12.3 10^3/uL (4.0-10.0) H 01/08/22 04:40 RBC 3.45 10^6/uL (4.1-5.3) L 01/08/22 04:40 Hgb 10.2 g/dL (11.7-16.6) L 01/08/22 04:40 Hct 30.3 % (42.0-52.0) L 01/08/22 04:40 MCV 87.8 fl (80-94) 01/08/22 04:40 MCH 29.6 pg (28.0-34.0) 01/08/22 04:40 MCHC 33.7 g/dL (30.0-36.0) 01/08/22 04:40 RDW 14.0 % (12.1-15.1) 01/08/22 04:40 Plt Count 166 10^3/cmm (130-400) 01/08/22 04:40 MPV 11.5 fL (7.4-10.4) H 01/08/22 04:40 Neut % (Auto) 84.0 % 01/08/22 04:40 Lymph % (Auto) 6.7 % 01/08/22 04:40 [place] % (Auto) 8.0 % 01/08/22 04:40 Eos % (Auto) 0.4 % 01/08/22 04:40 Baso % (Auto) 0.2 % 01/08/22 04:40 Neut # (Auto) 10.31 10^3/uL (1.8-7.7) H 01/08/22 04:40 Lymph # (Auto) 0.8 10^3/uL (0.8-4.8) 01/08/22 04:40 [place] # (Auto) 1.0 10^3/uL (0.2-0.9) H 01/08/22 04:40 Eos # (Auto) 0.1 10^3/uL (0.0-0.8) 01/08/22 04:40 Baso # (Auto) 0.0 10^3/uL (0.0-0.1) 01/08/22 04:40 Nucleated RBC % (auto) 0 % 01/08/22 04:40 Total Counted 100 (0-100) 01/07/22 02:40 Atypical Lymphs % 0.0 % (0-5) 01/07/22 02:40 Absolute Neutrophils 4.6 10^3/cmm (1.4-6.5) 01/07/22 02:40 Segmented Neutrophils 71 % 01/07/22 02:40 Abs Segm Neuts (Man) 4.0 10/cmm (1.6-7.1) 01/07/22 02:40 Band Neutrophils 12.0 % 01/07/22 02:40 Abs Band Neuts (Man) 0.7 10^3/cmm (0.0-1.2) 01/07/22 02:40 Absolute Lymphocytes 0.6 10^3/cmm (1.2-3.4) L 01/07/22 02:40 Lymphocytes (Manual) 10 % 01/07/22 02:40 Monocytes (Manual) 6.0 % 01/07/22 02:40 Absolute Monocytes 0.3 10^3/cmm (0.1-0.6) 01/07/22 02:40 Eosinophils (Manual) 1 % 01/07/22 02:40 Absolute Eosinophils 0.0 10^3/cmm (0.0-0.7) 01/07/22 02:40 Basophils (Manual) 0.0 % 01/07/22 02:40 Absolute Basophils 0.0 10^3/cmm (0.0-0.2) 01/07/22 02:40 Nucleated RBCs # 0.0 /100WBC 01/08/22 04:40 Toxic Vacuolation 1+ H 01/07/22 02:40 Platelet Estimate Decreased (Normal) 01/07/22 02:40 PT 16.20 SECONDS (12.1-14.9) H 01/05/22 13:55 INR 1.27 (0.8-1.2) H 01/05/22 13:55 APTT 83.8 SECONDS (23.9-36.7) H D 01/07/22 10:25 D-Dimer 5.23 ug/mIFEU (0-0.59) H 01/05/22 13:55 Specimen Type Arterial 01/07/22 02:37 Sample Site Radial, left 01/07/22 02:37 ABG pH 7.37 (7.35-7.45) 01/07/22 02:37 ABG pCO2 30.2 mmHg (35-45) L 01/07/22 02:37 ABG pO2 54.7 mmHg (80.0-100.0) L 01/07/22 02:37 ABG HCO3 17.5 mmol/L (22-26) L 01/07/22 02:37 ABG O2 Saturation 90.8 01/07/22 02:37 ABG Base Excess -6.7 mmol/L (-2.0-2.0) L 01/07/22 02:37 Maik Test Pos 01/07/22 02:37 A-a O2 Gradient 43.4 mmHg (5-10) H 01/07/22 02:37 Hematocrit 36.8 % (42-52) L 01/07/22 02:37 Hgb O2 Saturation 89.7 % (95-100) L 01/07/22 02:37 Carboxyhemoglobin 0.7 %THgb (0.4-20.1) 01/07/22 02:37 Methemoglobin 0.5 % (0.4-1.5) 01/07/22 02:37 Total Hemoglobin 12.0 g/dL (14-18) L 01/07/22 02:37 Sodium 136.0 mmol/L (131-143) 01/07/22 02:37 Potassium 3.5 mmol/L (3.5-5.0) 01/07/22 02:37 Glucose 243.0 mg/dL (70-115) H 01/07/22 02:37 Ionized Calcium 1.0 mmol/L (1.1-1.4) L 01/07/22 02:37 O2 Delivery Device Vent 01/07/22 02:37 O2 Liters/Min 5.0 % 01/05/22 14:25 FiO2 60.0 % 01/07/22 02:37 Tidal Volume 0.45 01/07/22 02:37 PEEP 8.0 cmH20 01/07/22 02:37 Special Educator ID [place] 01/07/22 02:37 Sodium 135 mmol/L (136-145) L 01/08/22 04:40 Potassium 3.0 mmol/L (3.5-5.1) L 01/08/22 04:40 Chloride 101 mmol/L (98-107) 01/08/22 04:40 Carbon Dioxide 23 mmol/L (22-29) 01/08/22 04:40 Anion Gap 14.0 (5-19) 01/08/22 04:40 BUN 24 mg/dL (8-23) H 01/08/22 04:40 Creatinine 1.3 mg/dL (0.7-1.2) H 01/08/22 04:40 GFR Calculation Not Reportable 01/08/22 04:40 Glucose 176 mg/dL (65-115) H 01/08/22 04:40 POC Glucose 102 mg/dL (70-110) 01/08/22 12:35 Calculated Osmolality 288 mOsm/kg (285-295) 01/08/22 04:40 Lactic Acid 4.8 mmol/L (0.5-2.2) H* 01/06/22 18:15 Lactic Acid (Sepsis) 1.4 mmol/L (0.5-2.2) 01/06/22 21:46 Lactate 2.2 mmol/L (0.5-2.2) 01/07/22 02:41 Calcium 7.8 mg/dL (8.5-10.5) L 01/08/22 04:40 Magnesium 1.8 mg/dL (1.7-2.3) 01/08/22 04:40 Total Bilirubin 0.8 mg/dL (0.15-1.2) 01/08/22 04:40 AST 12 U/L (0-40) 01/08/22 04:40 ALT 15 U/L (0-41) 01/08/22 04:40 Alkaline Phosphatase 83 IU/L (40-130) 01/08/22 04:40 Creatine Kinase 222 U/L (39-308) 01/07/22 02:41 CK-MB (CK-2) 5.5 ng/mL (0-10.4) 01/05/22 13:55 CK-MB (CK-2) Rel Index % (0.0-5.3) 01/05/22 13:55 Troponin T Baseline 137 ng/L (0-15) H* 01/05/22 13:55 Troponin T 120 Minute 186.6 ng/L (0-15) H 01/05/22 16:05 Delta Troponin T 49.6 ABS# (0-10) H* 01/05/22 16:05 Troponin T Hi Sens 6Hr 272.4 ng/L (0-15) H 01/05/22 20:56 Troponin T Hi Sens 6Hr Delta 135.4 ng/L (0-12) H* 01/05/22 20:56 Total Protein 5.5 g/dL (6.6-8.7) L 01/08/22 04:40 Albumin 2.7 g/dL (3.5-5.2) L 01/08/22 04:40 Globulin 2.8 g/dL (1.3-4.6) 01/08/22 04:40 Lipase 7 U/L (13-60) L 01/05/22 13:55 Urine Color Yellow (Yellow) 01/05/22 16:05 Urine Appearance Clear (CLEAR) 01/05/22 16:05 Urine pH 5 (5-7) 01/05/22 16:05 Ur Specific [place] 1.010 (1.005-1.030) 01/05/22 16:05 Urine Protein Trace (Negative) 01/05/22 16:05 Urine Glucose (UA) Norm (Normal) 01/05/22 16:05 Urine Ketones Negative (Negative) 01/05/22 16:05 Urine Blood 3+ (Negative) H 01/05/22 16:05 Urine Nitrate Negative (Negative) 01/05/22 16:05 Urine Bilirubin Neg (Negative) 01/05/22 16:05 Urine Urobilinogen Norm mg/dL (Negative) 01/05/22 16:05 Ur Leukocyte Esterase Negative (Negative) 01/05/22 16:05 Urine RBC 0-4 /hpf (0-2) H 01/05/22 16:05 Urine WBC 0-4 /hpf (0-5) H 01/05/22 16:05 Ur Squamous Epith Cells 0-4 /hpf (0-5) H 01/05/22 16:05 Amorphous Sediment 2+ /hpf 01/05/22 16:05 Urine Bacteria Trace /hpf (NONE) 01/05/22 16:05 Serum Ketones Negative (Negative) 01/05/22 13:55 Coronavirus 229E (PCR) Not detected (NOT DETECT) 01/08/22 Unknown SARS-CoV-2 (PCR) Not detected (NOT DETECT) 01/08/22 Unknown SARS-CoV-2 Ag (Rapid) Cancelled 01/08/22 Unknown Micro: Microbiology 01/05/22 16:05 Gram Stain - Final Groin Wound Culture - Final Staphylococcus aureus 01/08/22 10:18 Blood Culture - Preliminary Blood SPECIMEN COLLECTED 01/08/22 10:11 Blood Culture - Preliminary Blood SPECIMEN COLLECTED 01/05/22 14:05 Blood Culture - Final Blood Staphylococcus aureus 01/05/22 13:55 Blood Culture - Final Blood Staphylococcus aureus 01/05/22 18:00 Gram Stain - Final Sputum - Endotracheal Tube Aspirate Sputum Culture - Final A&P Assessment and plan (1) Acute encephalopathy: Status: Acute (2) NICOLETTE (acute kidney injury): Status: Acute (3) Septic shock: Status: Acute (4) History of endovascular stent graft for abdominal aortic aneurysm (AAA): (5) History of abdominal aortic aneurysm (AAA) repair: (6) Peripheral arterial disease with history of revascularization: (7) New onset left bundle branch block (LBBB): (8) Respiratory failure: Status: Acute (9) Wound dehiscence: Status: Acute (10) Staphylococcus aureus bacteremia: Status: Acute Plan 86-year-old male with past medical history of CAD, s/p 5 stents per in the past, PAD with known femoropopliteal bypass occlusion, AAA, s/p endovascular stent repair via bilateral femoral artery cutdown On 09/09/2021-later complicated with wound Dehiscence in the right groin treated with 6 weeks antibiotics-presented to emergency room for confusion and respiratory failure-intubated and admitted to ICU-currently noted to be in septic shock secondary to staph bacteremia from right groin wound dehiscence. #PHARMACEUTICAL DEVELOPMENT TECHNICIAN:Acute confusion-secondary to septic encephalopathy -Currently being treated with antibiotics for staph bacteremia -Currently on sedation with fentanyl and Versed 1 Mg - -Recommended to taper down fentanyl and turn off Versed -We will do awakening trial #Pulm:On mechanical ventilator for hypoxic respiratory failure secondary to fluid overload -Intubated 01/05/2022:-Currently on CMV 450/16/35 %/8 saturating 95% -Chest x-ray suggestive of diffuse pulmonary edema-received 3 doses of albumin and lasix -Continue to monitor oxygen saturation and taper down FiO2 #Cardiac: Septic shock and A. fib with rate controlled -Currently on amiodarone drip, lidocaine drip and heparin gtt. -Echocardiogram 01/06/2022: Normal LV size, systolic function, wall thickness and no regional wall motion abnormalities. Grade 1 diastolic dysfunction. LVEF estimated 55 to 60%. Normal RV size and systolic function with mild pulmonary hypertension RVSP 46. -Bedside ultrasound examination showed collapsing IVC -Cardiac cath on admission did not show any significant CAD -Currently on Plavix 75, -Appreciate cardiology recommendations -For septic shock-currently patient is coming down on pressor requirements-currently Levophed 3 MCG and off vasopressin 0.03-recommended titrate down Levophed with target MAP 65 -received 4 doses of albumin every 8 hour #Severe PAD-check bilateral lower extremity pulses -Currently both legs are warm with no discoloration #GI: for celiac artery occlusion -CT angio abdomen pelvis [facility] at [facility] on 08/31/2021-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 -Currently abdominal soft with no distention-abdominal pressure 10 -Patient is on vasopressors and there is a concern for potential ischemic bowel injury-currently down to levophed 3 (from 30 and off vasopressin) -start trickle feeding -GI prophylaxis PPI #Renal: NICOLETTE-prerenal from septic shock -Target MAP 60-65 -making good urine-closely monitor input output -Creatinine 1.6 >> 1.3-normal electrolytes, With bicarb 23-lactic acid normalized - overall improving --Albumin 2.7; received 4 doses albumin yesterday-able to taper down pressors and improving urine outpt -Monitor BUN/creatinine/electrolytes -Patient is mechanically ventilated for respiratory support in the event of fluid overload #Infection: cultures and blood cultures positive for staph -Wound & blood cultures-show ampicillin/penicillin resistant staph aureus-sensitive to Oxacillin and Zosyn; -Can discontinue vancomycin and continue Zosyn -Patient had right groin wound dehiscence from recent femorofemoral graft procedure and was treated with outpatient antibiotics -Soft tissue ultrasound 01/05/2022 showed 3 x 2 subcutaneous hypoechoic irregular solid soft tissue mass in the right groin with well defining draining sinus extending to the skin surface-most likely complex abscess -Patient will be transferred for additional assessment by vascular surgery for which he was kindly accepted over at [facility] in [place].? Overall patient is in staph bacteremia and septic shock from infected right groin wound-improving and off vasopressin and currently on levophed 3; improving renal parameters; we will continue hemodynamic and ventilatory support-plan is to taper down sedation and do awakening trial followed by breathing trial. Wound and blood cutlures positive for staph sensitive to zosyn ; Surgery to investigate infected wound for source control and give the recommendations. ICU CHECKLIST: Problem list updated Verbal orders reviewed and signed Analgesia: Fentanyl Glycemic Control: Low-dose insulin scale coverage Nutrition: N.p.o. for now Restraint Renewal (within 24 hrs): Yes Ulcer Prophylaxis: PPI Chemical Thromboprophylaxis: Prophylaxis: Heparin Mechanical Thromboprophylaxis: SCD Need for Central line: Yes for pressors Need for Nj catheter: Yes for UOP monitoring Code: Full Prognosis: Guarded Family: Updated Attestations Medical Necessity Statement*: -intubated and admitted to ICU-currently noted to be in septic shock secondary to staph bacteremia from right groin wound dehiscence Being treated with antibiotics-needs close monitoring Critical Care Time: Critical Care Time (No Overlap): 45 min This patient has a high probability of sudden, clinically significant deterioration, which requires the highest level of physician preparedness to intervene urgently.? I managed/supervised life or organ supporting interventions that required frequent physician assessment.? I devoted my full attention in the ICU to the direct care of this patient for the period of time indicated above.? Time I spent with family or surrogate(s) is included only if the patient was incapable of providing necessary information or participating in decision making.? Time devoted to teaching and to any procedures I billed separately is not included. Services Provided: Telemetry review Mechanical Ventilation Hemodynamic interpretation, assessment and management Review and interpretation of CXR Review and interpretation of lab values Review and interpretation of microbiologic data and culture results Review of medications and administration Review and interpretation of Nutrition requirements and management Discussion of management with other consultants and services Clinical update to family members Critical Care Time (min): 45 Coding Level of Care Code Established Pt Acute House Furnishings Supervisor for Chg Fwd Patient Type Established History Comprehensive Exam Comprehensive Medical Decision Making Moderate Complexity Diagnoses Acute encephalopathy G93.40 NICOLETTE (acute kidney injury) N17.9 Septic shock A41.9; R65.21 History of endovascular stent graft for abdominal aortic aneurysm (AAA) Z95.828 History of abdominal aortic aneurysm (AAA) repair Z98.890 Peripheral arterial disease with history of revascularization I73.9; Z98.890 New onset left bundle branch block (LBBB) I44.7 Respiratory failure J96.90 Wound dehiscence T81.30XA Staphylococcus aureus bacteremia R78.81; B95.61 Time Spent (min) 45
--- NOTE | 2022-01-08 16:30 | PC.NURSE ---
[facility] ambulance here report given for transfer to [facility] at this time..
--- NOTE | 2022-01-08 16:56 | PC.NURSE ---
transfer per [facility]
== END 2022-01-08 16:58 | disposition short-term general hospital (02) | DRG 871 ==
LOC: ER 14:42 → CCL 16:25 → ICU 17:00
PROVIDERS: Internal Medicine; Internal Medicine Pulmonary Disease; Admitting Provider Internal Medicine Cardiovascular Disease; Emergency Provider Family Medicine; Visit Provider Internal Medicine
PROC: B2111ZZ Fluoroscopy of Multiple Coronary Arteries using Low Osmolar Contrast (ICD-10-PCS; principal; 2022-01-05 16:30)
DX: A41.9 Sepsis, unspecified organism (principal); R65.21 Severe sepsis with septic shock; J96.91 Respiratory failure, unspecified with hypoxia; I21.A1 Myocardial infarction type 2; G93.41 Metabolic encephalopathy; N17.9 Acute kidney failure, unspecified; J81.1 Chronic pulmonary edema; T81.31XA Disruption of external operation (surgical) wound, not elsewhere classified, initial encounter; T81.49XA Infection following a procedure, other surgical site, initial encounter; M62.82 Rhabdomyolysis; I44.7 Left bundle-branch block, unspecified; I25.10 Atherosclerotic heart disease of native coronary artery without angina pectoris; Z95.5 Presence of coronary angioplasty implant and graft; I73.9 Peripheral vascular disease, unspecified; E78.5 Hyperlipidemia, unspecified; G89.29 Other chronic pain; M54.9 Dorsalgia, unspecified; M25.571 Pain in right ankle and joints of right foot; K21.9 Gastro-esophageal reflux disease without esophagitis; Z98.890 Other specified postprocedural states; R29.6 Repeated falls; I12.9 Hypertensive chronic kidney disease with stage 1 through stage 4 chronic kidney disease, or unspecified chronic kidney disease; N18.9 Chronic kidney disease, unspecified; Z79.891 Long term (current) use of opiate analgesic; Z79.02 Long term (current) use of antithrombotics/antiplatelets; I95.9 Hypotension, unspecified; I07.1 Rheumatic tricuspid insufficiency; K31.89 Other diseases of stomach and duodenum; R00.0 Tachycardia, unspecified; I77.0 Arteriovenous fistula, acquired; I70.8 Atherosclerosis of other arteries; I48.0 Paroxysmal atrial fibrillation; B95.61 Methicillin susceptible Staphylococcus aureus infection as the cause of diseases classified elsewhere; E74.39 Other disorders of intestinal carbohydrate absorption; N28.1 Cyst of kidney, acquired; K59.00 Constipation, unspecified
CPT/HCPCS: 31500; 36415; 36416; 36592; 36600; 51702; 70450; 71045; 74018; 74176; 76882; 80051; 80053; 81001; 82009; 82330; 82550; 82553; 82803; 82805; 82962; 83605; 83690; 83735; 84484; 85007; 85025; 85049; 85378; 85610; 85730; 87040; 87070; 87075; 87077; 87150; 87186; 87205; 87635; 93005; 93306; 93454; 93880; 94002; 94003; 94799; 96365; 96367; 96372; 96375; 99291; 99292; C1769; C1887; C1894; C9113; J0153; J0282; J0330; J1644; J1650; J1815; J1940; J1956; J2001; J2060; J2212; J2250; J2405; J2543; J3010; J3370; J3475; J3480; J3490; J7030; J7050; J7060; P9047; Q9967

== ENCOUNTER → 2022-02-26 10:37 | Outpatient (BNVA) | payer MEDICARE, SELFPAY | PROVIDERS: Visit Provider Nurse Practitioner Family | DX: S91.001A Unspecified open wound, right ankle, initial encounter (principal); X58.XXXA Exposure to other specified factors, initial encounter; Z98.1 Arthrodesis status; M19.071 Primary osteoarthritis, right ankle and foot | CPT/HCPCS: 73610 ==